=== PATIENT | female | born 1995 | race Caucasian/White ===

== ENCOUNTER → 2021-02-25 07:09 | Outpatient (CLI) | payer MEDICAID, SELFPAY ==
--- NOTE | 2021-02-25 07:14 | US_ITS ---
STUDY: ABDOMINAL ULTRASOUND - RIGHT UPPER QUADRANT REASON FOR VISIT: Female, 25 years old RUQ PAIN . Elevated liver function tests. TECHNIQUE: Ultrasound evaluation of the right upper quadrant was performed with real-time and static stone-scale imaging. TECHNICAL QUALITY: Adequate. COMPARISON: None. FINDINGS: Liver: The liver is enlarged and measures 23.4 cm. There is increased echogenicity consistent with fatty infiltration. The bile ducts are within normal limits. There is hepatic color flow. The direction of portal flow is hepatopetal. There is no demonstrated mass lesion. Gallbladder: Normal distended gallbladder. The gallbladder wall measures 1 mm. There is a negative sonographic Jackson''s sign. There is no pericholecystic fluid. There are no gallstones. Common Bile Duct (C.B.D.): The common bile duct measures 5 mm. Pancreas: Normal size of the head, body of the pancreas. The tail portion is obscured due to overlying bowel gas. There is normal echogenicity of the pancreas. There is no demonstrated pancreatic mass or cyst. Right Kidney: Normal size of the right kidney. The right kidney measures 11.5 cm x 4.2 cm x 3.5 cm. Normal renal cortex. The right cortex measures 1.0 cm. There is no demonstrated renal mass or cyst. There is no right hydronephrosis. US/Abdomen Limited IMPRESSION: Hepatomegaly and diffuse fatty infiltration of the liver. Electronically Signed: Eugene Paul MD at 14:58 EST , Service support ,
== END ==
PROVIDERS: PCP Family Medicine; Referring Provider Family Medicine; Visit Provider Family Medicine
DX: R74.8 Abnormal levels of other serum enzymes (principal)
CPT/HCPCS: 76705

== ENCOUNTER 2021-03-23 17:56 | Outpatient (CLI) | payer MEDICAID, SELFPAY | END 2021-03-23 23:59 | disposition short-term general hospital (02) | PROVIDERS: Visit Provider Family Medicine | DX: Z20.828 Contact with and (suspected) exposure to other viral communicable diseases (principal) | CPT/HCPCS: 87635; U0003; U0005 ==

== ENCOUNTER → 2022-11-18 | Outpatient (CLI) | payer MEDICAID, SELFPAY ==
[2022-11-18 17:47] LABS: Absolute Lymphocyte Count 1.67 X10^3/uL (0.83-4.51); Absolute Neutrophil Count 5.7 X10^3/uL (2.0-7.7); Basophil# 0.04 X10^3/uL; Basophil% 0.5 % (0-1); Eosinophil# 0.19 X10^3/uL; Eosinophils% 2.3 % (0-5); Hemoglobin 14.4 g/dL (12.0-15.0); Lymphocyte # 1.67 X10^3/ul (0.83-4.51); Lymphocyte % 20.4 % (19-41); Mean Corp Hgb Conc 32.7 g/dL (32-36); Mean Corpuscular Hgb 28.7 pg (27.0-32.0); Mean Corpuscular Volume 87.6 fL (81-99); Mean Platelet Vol. 13.4 fl (6.2-12.0); Monocyte# 0.61 X10^3/uL; Monocyte% 7.4 % (0-10); NRBC Flagged by Analyzer 0 % (0-5); Neutrophil # 5.66 X10^3/uL (2.7-7.7); Neutrophil % 69.2 % (47-70); Platelet Count 197 K/mm3 (150-450); RBC Distribution Width SD 38.5 fl (35.1-43.9); Red Blood Count 5.02 M/mm3 (4.2-5.4); White Blood Count 8.2 K/mm3 (4.4-11.0)
[2022-11-18 18:50] LABS: ALB/GLOB Ratio 0.9 RATIO (0.9-2.4); AST(SGOT) 48 U/L (15-37); Alanine Aminotransfer ALT/SGPT 91 U/L (13-56); Albumin, Serum 3.7 g/dL (3.2-5.0); Alkaline Phosphatase 88 U/L (45-117); Anion Gap 6 (5-15); BUN 13 mg/dL (7-18); BUN/Creat Ratio 13.5 RATIO (10-20); Calcium,Total 9.2 mg/dL (8.5-10.1); Chloride 107 mmol/L (98-107); Creatinine, Serum 0.96 mg/dL (0.55-1.02); EST Glomerular Filtration Rate 74 mL/min (>60); Est Glom Filt Rate - Afr Amer 90 mL/min (>60); Glucose 122 mg/dL (74-106); Potassium 3.9 mmol/L (3.5-5.1); Protein, Total 7.7 g/dL (6.4-8.2); Sodium Level 137 mmol/L (136-145)
== END | disposition home or self-care (01) ==
LOC: MTLAB 16:38
PROVIDERS: PCP Family Medicine; Visit Provider Family Medicine
DX: O24.420 Gestational diabetes mellitus in childbirth, diet controlled (principal); K76.0 Fatty (change of) liver, not elsewhere classified; O99.611 Diseases of the digestive system complicating pregnancy, first trimester; Z3A.00 Weeks of gestation of pregnancy not specified
CPT/HCPCS: 36415; 80053; 85025; 87491; 87591

== ENCOUNTER → 2022-12-04 | Outpatient (CLI) | payer MEDICAID, SELFPAY ==
--- NOTE | 2022-12-04 08:54 | US_ITS ---
STUDY: ABDOMINAL ULTRASOUND - RIGHT UPPER QUADRANT REASON FOR VISIT: Female, 27 years old FATTY LIVER TECHNIQUE: Ultrasound evaluation of the right upper quadrant was performed with real-time and static stone-scale imaging. TECHNICAL QUALITY: Adequate. COMPARISON: Comparison is made with prior study February 25, 2021. FINDINGS: Liver: The liver is enlarged and measures 20.8 cm. There is increased echogenicity consistent with fatty infiltration. The bile ducts are within normal limits. There is hepatic color flow. The direction of portal flow is hepatopetal. There is no demonstrated mass lesion. Gallbladder: Normal distended gallbladder. The gallbladder wall measures 2.0 mm. There is a negative sonographic Jackson''s sign. There is no pericholecystic fluid. There are no gallstones. Common Bile Duct (C.B.D.): The common bile duct measures 3.0 mm. Pancreas: Normal size of the head, body and tail of the pancreas. There is normal echogenicity of the pancreas. There is no demonstrated pancreatic mass or cyst. Right Kidney: Normal size of the right kidney. The right kidney measures 11.6 cm x 5.5 cm x 4.3 cm. Normal renal cortex. The right cortex measures 1.5 cm. There is no demonstrated renal mass or cyst. There is no right hydronephrosis. IMPRESSION: Hepatomegaly and fatty infiltration of the liver. Electronically Signed: Eugene Paul MD at 8:27 EDT , STUDY: ABDOMINAL ULTRASOUND - ELASTOGRAPHY REASON FOR VISIT: Female, 27 years old. Hepatomegaly and fatty infiltration of the liver. TECHNIQUE: Liver stiffness measurements were obtained on a Voxound 85 ultrasound machine using a CA 1-7 probe following the SRU guidelines. 3 measurements were obtained using a 2-D-SWE method. TheIQR/M was 12% suggesting a quality data set. TECHNICAL QUALITY: Adequate. COMPARISON: None. FINDINGS: Liver: Fatty infiltration of the liver. Hepatomegaly. Median liver stiffness measured 6.8 kPa. Abdomen: There is no demonstrated mass lesion. US/Abdomen Limited IMPRESSION: Liver stiffness measures 6.8 kPa compatible with F2-F3 (Mild to moderate liver fibrosis) Metavir score. Electronically Signed: Eugene Paul MD at 8:29 EDT ,
== END | disposition home or self-care (01) ==
LOC: US 08:51
PROVIDERS: PCP Family Medicine; Referring Provider Family Medicine; Visit Provider Family Medicine
DX: K76.0 Fatty (change of) liver, not elsewhere classified (principal)
CPT/HCPCS: 76705; 76981

== ENCOUNTER 2023-05-08 21:36 | Emergency (ER) | payer MEDICAID, SELFPAY ==
[2023-05-08 21:39] VITALS: BP 143/102; PULSE 155; RESP 22; TEMP 39.4; O2SAT 97
[2023-05-08 21:42] VITALS: BP 143/102; PULSE 155; RESP 22; TEMP 39.4; O2SAT 97
[2023-05-08 21:54] VITALS: BP 129/87; PULSE 123; RESP 22; TEMP 39.5; O2SAT 96; BMI 34.3
[2023-05-08] MEDS: 0.9% Normal Saline (1000mL) 1,000 ML 1000 ML IV ×2 (22:00→22:32)
--- NOTE | 2023-05-08 22:06 | EDS_ITS ---
HPI History of Present Illness Chief Complaint: Fever Informant: patient Onset/Context/Timing Onset: Yesterday Context: Gradual Onset Timing: Continuous Quality: Weak, lightheaded Location: Generalized Worsened by: Nothing Relieved by: Tylenol Narrative Narrative: Patient presents with a fever that began yesterday. Patient states it is gradually gotten worse. Patient states it is up to 104 at home. Patient states she did take some Tylenol which has been helping. Patient admits to some postnasal drainage and a cough. Patient also admits to an episode of nausea and vomiting. Patient states she was recently treated for an ear infection but stopped taking her amoxicillin because she thought that it was making her sick. Patient states she is feeling weak all over. Patient also admits to some lightheadedness. Patient denies any chest pain or shortness of breath. [facility] Medical History (Updated 05/08/23 @ 23:[address] Silvio Trujillo DO) Anxiety Ear infection URI (upper respiratory infection) Home Medications amoxicillin 400 mg/5 mL oral suspension 800 mg PO Q12H 05/08/23 [History Last Taken Unknown] fluoxetine 20 mg/5 mL (4 mg/mL) oral solution 30 mg PO DAILY 05/08/23 [History Last Taken Unknown] oseltamivir 75 mg capsule 75 mg PO BID #10 CAPSULES 05/08/23 [Rx Last Taken Unknown] Allergy/AdvReac Type Severity Reaction Status Date / Time No Known Allergies Allergy Verified 05/08/23 21:38 Surgical History (Updated 05/08/23 @ 22:[address] Silvio Trujillo DO) Hx of section Social History Smoking Status: Never smoker ROS ROS ED Constitutional Constitutional ED: Reports fever(s); Denies chills Eyes Eyes: Denies blurry vision or change in vision ENT ENT ED: Denies ear pain, rhinorrhea or sore throat Cardiovascular Cardiovascular: Denies chest pain or palpitations Respiratory/Chest Respiratory/Chest: Reports cough; Denies dyspnea Gastrointestinal Gastrointestinal: Reports nausea and vomiting Genitourinary Genitourinary ED: Denies dysuria or hematuria Musculoskeletal Musculoskeletal: Denies back pain or neck pain Integumentary Denies abscess or rash Neurologic Neurologic: Reports headache(s); Denies weakness Psychiatric Psychiatric: Reports anxiety Allergic/Immunologic Allergic/Immunologic ED: Denies mouth swelling or urticaria EXAM Physical Exam Const Vital Signs: 05/08/23 21:39 05/08/23 21:42 05/08/23 21:54 Temperature 103.0 F H 103.0 F H 103.1 F H Temperature Source Oral Oral Oral Pulse Rate 155 H 155 H 123 H Respiratory Rate 22 H 22 H 22 H Respiratory Pattern Blood Pressure 143/102 H 143/102 H 129/87 H Blood Pressure Mean 115 115 101 Pulse Ox 97 97 96 Oxygen Delivery Method Room Air Room Air Room Air 05/08/23 21:58 05/08/23 22:32 05/08/23 23:00 Temperature 98.4 F Temperature Source Oral Pulse Rate 104 H 105 H Respiratory Rate 17 17 Respiratory Pattern Tachypnea Blood Pressure 134/92 H 127/78 H Blood Pressure Mean 106 94 Pulse Ox 97 97 Oxygen Delivery Method Room Air Room Air Positive well nourished, well developed and obese General Appearance ED: well developed and NAD Nutritional Appearance: obese HEENT Reports dry mucous membranes Mouth ED: Yes dry mucous membranes Mouth: dry mucous membranes Neck supple and no JVD Resp normal respiratory effort and clear to auscultation bilaterally Cardio regular rhythm Rate: tachycardic GI non-tender and non-distended Palpation: soft Extremity normal to inspection General Extremety ED: Negative for edema or tenderness General Extremity: Negative for edema Neuro oriented x3, CN's II-XII intact bilaterally and no sensory deficits noted Sensorium / Orientation: alert Motor Exam: strength 5/5 throughout Psych mental status grossly normal MDM MDM MDM Narrative Medical decision making narrative: Differential diagnosis includes pneumonia, urinary tract infection, dehydration, viral upper respiratory infection, gastroenteritis, DKA, and sepsis. CBC will be obtained to assess for leukocytosis and anemia. Basic metabolic profile will be obtained to assess for electrolyte abnormality and renal function. Urinalysis will be obtained to assess for urinary tract infection. Chest x-ray will be obtained to assess for pneumonia. COVID-19, influenza, and RSV PCR will be obtained to assess for viral infection. Serum lactate will be obtained to assess for sepsis. Blood cultures will be obtained to assess for sepsis. Urine culture will be obtained to assess for urinary tract infection. PT was INR and PTT will be obtained to assess for coagulopathy. Lab Data Attestation: I reviewed the patient's lab results. Lab results narrative: CBC was reviewed and was within normal limits. PT was INR and PTT were reviewed and were within normal limits. Basic metabolic profile was reviewed and was within normal limits. Glucose is normal. Anion gap is normal. Lactate was reviewed and was normal at 1.3. Urinalysis was reviewed. There is no evidence of urinary tract infection or hematuria. COVID-19 PCR was reviewed and was negative. Influenza PCR was reviewed and was positive for influenza A but negative for influenza B. RSV PCR was reviewed and was negative. Labs: Laboratory Results - last 24 hr 05/08/23 05/08/23 22:00 23:10 WBC 5.0 RBC 4.81 Hgb 13.5 Hct 40.8 MCV 84.8 MCH 28.1 MCHC 33.1 RDW Std Deviation 37.1 RDW Coeff of Deanna 12.0 Plt Count 140 L MPV 13.5 H Immature Gran % (Auto) 0.200 Neut % (Auto) 72.6 H Lymph % (Auto) 9.3 L Leslie % (Auto) 16.9 H Eos % (Auto) 0.6 Baso % (Auto) 0.4 Absolute Neuts (auto) 3.6 Absolute Lymphs (auto) 0.46 L Nucleated RBC % 0 PT 13.8 INR 1.1 APTT 28.1 Sodium 136 Potassium 3.6 Chloride 107 Carbon Dioxide 24.0 Anion Gap 5 BUN 9 Creatinine 0.93 Estim Creat Clear Calc 100.01 Est GFR (MDRD) Af Amer 94 Est GFR (MDRD) Non-Af 77 BUN/Creatinine Ratio 9.7 L Glucose 105 Lactic Acid 1.3 Calcium 9.1 Urine Color Yellow Urine Clarity Sl. Cloudy Urine pH 8.0 Ur Specific Hernando 1.010 Urine Protein Negative Urine Glucose (UA) Normal Urine Ketones Negative Urine Occult Blood Negative Urine Nitrite Negative Urine Bilirubin Negative Urine Urobilinogen Normal Ur Leukocyte Esterase Negative Urine RBC 0 SEEN Urine WBC 0 SEEN Ur Squamous Epith Cells 5-10 SEEN Amorphous Sediment 1+ PHOS Urine Bacteria 0 SEEN Urine Mucus 0 SEEN Radiography Chest X-Ray - ED: 2 View, Read by ED Physician, Read by Radiologist and No Acute Disease Diagnostic Testing: Clinical Impression(s) from Imaging Studies Chest X-Ray 05/08/23 22:40 IMPRESSION: Normal x-ray examination of the chest. Electronically Signed: Guzman Figueroa MD at 23:00 EST , PA and lateral chest x-ray was obtained. There are 2 views. On my independent interpretation, lung kearney are clear. There is normal cardiac silhouette. Bony thorax is normal. There is no acute process noted. Radiologist also interpreted the x-ray and agrees. Treatment and Re-Evaluation :: Patient was given IV fluids. Patient was given a dose of Tylenol for her fever. Patient was advised of her findings. Patient was given a dose of Tamiflu here. Patient was given a prescription for Tamiflu. Patient was instructed to continue Tylenol and ibuprofen as needed for any fevers. Patient was instructed to follow-up with her primary care physician in 5 to 7 days. Patient was instructed drink plenty of fluids. Patient understood and was agreeable with the plan. All questions were answered. Discharge Plan Triage Chief Complaint: Fever ED Provider: Silvio Trujillo Dx/Rx/DC Orders Clinical Impression: Influenza A, URI (upper respiratory infection) Instructions: ED Influenza (Adult) Prescriptions: New oseltamivir [oseltamivir] 75 mg capsule 75 mg PO BID Qty: 10 0RF No Action fluoxetine 20 mg/5 mL (4 mg/mL) solution 30 mg PO DAILY amoxicillin 400 mg/5 mL suspension for reconstitution 800 mg PO Q12H Patient Comments: TAKE 2 TEASPOONSFUL (10 ML) BY MOUTH TWICE A DAY FOR 10 DAYS * pt did not finish prescription Primary Care Provider: Danitza Allred Referrals: Danitza Allred MD [Primary Care Provider] - 5-7 Days Disposition Disposition: Home, Self Care
--- OUTSIDE RECORDS SUMMARY | 2023-05-08 22:12 | XMS RPT_ITS | CCD ---
Author Name Unknown Address [facility] [id number] [place] [address] Organization [facility] Results Test Name Value Interpretation Reference Range Facil ity Progress note 05-18-2021 Note Date & Type Note Facility 05-18-2021 Note HNO ID: [id number] Author: Nisha Valdez APRN.PROBATION MANAGER Service: ? Author Type: Nurse Practitioner Type: Progress Notes Filed: 05/18/2021 3:53 PM Note Text: Subjective HPI Richa Hernandez is a 25 year old female who presents with an bite of some type on her right lower leg. She noticed this last night. It seems to be more red today. She denies pain. States it is tender if she touches it. She has not had a fever or chills. She has not taken any medication for this at home. She did carmina the spot with a pen so she can see if the redness is improving. Review of Systems Constitutional: Negative for chills and fever. Musculoskeletal: Negative for joint pain and myalgias. Skin: Negative for itching and rash. BP 124/88 Pulse (!) 131 Temp 37 ?C (98.6 ?F) Resp 20 Wt 94.2 kg (207 lb 9.6 oz) LMP 02/18/2019 SpO2 98% BMI 37.72 kg/m? PAST MEDICAL HISTORY Diagnosis Date - Gestational diabetes mellitus, class A1 05/23/2019 - past medical history of 03/2008 menses started PAST SURGICAL HISTORY Procedure Laterality Date - NONE - TOOTH EXTRACTION ALLERGIES Patient has no known allergies. MEDICATIONS cefdinir (OMNICEF) 250 mg/5 mL suspension Take 6 mL by mouth twice daily for 7 days. triamcinolone (KENALOG) 0.025 % cream Apply 1 application to affected area twice daily. blood sugar diagnostic test strip 1 Strip four times daily. Use as instructed Lancets lancets 1 Each four times daily. Use as instructed Urine Glucose-Ketones Test (KETO-DIASTIX) strp 1 Strip four times daily. Evnxkatj-Lm-Pmh-Fe-FA tab Take 1 tablet by mouth once daily. With folic acid and DHA as covered by Insurance acetaminophen (TYLENOL) 325 mg cap Take by mouth. FAMILY HISTORY Problem Relation Age of Onset - Heart Father HI - Heart Other paternal side - Cancer Maternal Grandmother rectal Social History Tobacco Use - Smoking status: Never Smoker - Smokeless tobacco: Never Used Vaping Use - Vaping Use: Never used Substance Use Topics - Alcohol use: Not Currently - Drug use: Never Objective Physical Exam Vitals and nursing note reviewed. Constitutional: Appearance: She is obese. Skin: General: Skin is warm and dry. Capillary Refill: Capillary refill takes less than 2 seconds. Findings: Erythema present. No rash. Neurological: Mental Status: She is alert. ASSESSMENT/PLAN: 1. Skin infection - ICD9: 686.9, ICD10: L08.9 (primary diagnosis) - Begin treatment with Omnicef - Area of cellulitis defined with pen, seek further attention if this area continues to enlarge - CEFDINIR 250 MG/5 ML ORAL SUSPENSION 2. Insect bite of right lower leg, initial encounter - ICD9: 916.4, E906.4, ICD10: S80.861A, W57.XXXA - kenalog cream twice daily x 7 days. Medical Decision Making: Problems: Low: Acute, uncomplicated illness or injury Risk: Low: Low risk from testing/treatment Moderate: Drug management Medical Decision Making Level: 3 - Low - Follow-up with your PCP in 3-5 days if symptoms have not improved or sooner if symptoms worsen - Discussed red flags and need for immediate medical evaluation if any occur. - Discussed supportive care treatment. - Discussed expected course of illness Nisha Valdez APRN.[facility] Summary Purpose Family History No Family History Records FoundNo Family History Records Found Advance Directives No Advanced Directives Records FoundNo Advanced Directives Records Found Additional Source Comments INFORMATION SOURCE (unrecogn ized section and content) DATE CREATED AUTHOR AUTHOR'S RODGER MORALES 05/19/[address] [facility] FOR RECORDS PERTAINING TO PATIENTS WHO ARE OR HAVE BEEN ENROLLED IN A CHEMICAL DEPENDENCY/SUBSTANCEABUSE PROGRAM, SOME INFORMATION MAY BE OMITTED. This clinical summary was aggregated from multiple sources. Caution should be exercised in using it in the provision of clinical care. This summary normalizes information from multiple sources, and as a consequence, information in this document may materially change the coding, format and clinical context of patient data. In addition, data may be omitted in some cases. CLINICAL DECISIONS SHOULD BE BASED ON THE PRIMARY CLINICAL RECORDS. [facility] [employer] [facility]. provides no warranty or guarantee of the accuracy or completeness of information in this document.
[2023-05-08 22:32] VITALS: BP 134/92; PULSE 104; RESP 17; O2SAT 97
[2023-05-08] MEDS: Acetaminophen 500 MG Tablet 1000 MG PO (22:32)
[2023-05-08 22:39] LABS: Absolute Lymphocyte Count 0.46 X10^3/uL (0.83-4.51); Absolute Neutrophil Count 3.6 X10^3/uL (2.0-7.7); Basophil# 0.02 X10^3/uL; Basophil% 0.4 % (0-1); Eosinophil# 0.03 X10^3/uL; Eosinophils% 0.6 % (0-5); Hematocrit 40.8 % (37-47); Hemoglobin 13.5 g/dL (12.0-15.0); Lymphocyte # 0.46 X10^3/ul (0.83-4.51); Lymphocyte % 9.3 % (19-41); Mean Corp Hgb Conc 33.1 g/dL (32-36); Mean Corpuscular Hgb 28.1 pg (27.0-32.0); Mean Corpuscular Volume 84.8 fL (81-99); Mean Platelet Vol. 13.5 fl (6.2-12.0); Monocyte# 0.84 X10^3/uL; Monocyte% 16.9 % (0-10); NRBC Flagged by Analyzer 0 % (0-5); Neutrophil % 72.6 % (47-70); POSITIVE DIFFERENTIAL YES; Platelet Count 140 K/mm3 (150-450); RBC Distribution Width SD 37.1 fl (35.1-43.9); Red Blood Count 4.81 M/mm3 (4.2-5.4)
--- NOTE | 2023-05-08 22:40 | RAD_ITS ---
STUDY: X-RAY CHEST REASON FOR EXAM: Female, 27 years old. Fever TECHNIQUE: PA and lateral views of the chest. COMPARISON: None. FINDINGS: The lungs are clear and expanded. There is no demonstrated pleural abnormality. Normal size heart. Normal mediastinum and martha. Normal visualized pulmonary arteries. Normal visualized aortic arch and descending thoracic aorta. Normal visualized thoracic spine. Normal visualized ribs, clavicles, and shoulders. There is no demonstrated abnormality of the visualized soft tissue structures of the upper abdomen. RAD/Chest PA and Lateral IMPRESSION: Normal x-ray examination of the chest. Electronically Signed: Guzman Figueroa MD at 23:00 EST ,
[2023-05-08 22:43] LABS: International Normalized Ratio 1.1; Prothrombin Time (Protime)PT. 13.8 SECONDS (11.7-14.9)
[2023-05-08 22:44] LABS: Partial Thromboplast Time 28.1 Seconds (24.1-36.2)
[2023-05-08 23:00] VITALS: BP 127/78; PULSE 105; RESP 17; TEMP 36.9; O2SAT 97
[2023-05-08 23:06] LABS: Anion Gap 5 (5-15); BUN 9 mg/dL (7-18); BUN/Creat Ratio 9.7 RATIO (10-20); Calcium,Total 9.1 mg/dL (8.5-10.1); Chloride 107 mmol/L (98-107); Creatinine, Serum 0.93 mg/dL (0.55-1.02); EST Glomerular Filtration Rate 77 mL/min (>60); Est Glom Filt Rate - Afr Amer 94 mL/min (>60); Estimated Creatinine Clearance 100.01 ml/min; Glucose 105 mg/dL (74-106); Potassium 3.6 mmol/L (3.5-5.1); Sodium Level 136 mmol/L (136-145)
[2023-05-08 23:10] LABS: Lactic Acid 1.3 mmol/L (0.4-1.9)
[2023-05-08 23:17] LABS: Bacteria 0 SEEN /hpf (None Seen); Mucous, Urine 0 SEEN /hpf (<or=2+); Red Blood Cells-Urine 0 SEEN /hpf (0-5); White Blood Cells 0 SEEN /hpf (0-5)
[2023-05-08 23:22] LABS: Color, Urine Yellow (Yellow); Glucose, Dipstick Normal (Normal); Ketone-Dipstick Negative (Negative); Leukocyte Esterase-Dipstick Negative /ul (Negative); Nitrite-Dipstick Negative (Negative); Occult Blood-Urine Negative /ul (Negative); Protein-Dipstick Negative (Negative); Urine Bilirubin Dipstick Negative (Negative); Urine Clarity Sl. Cloudy (Clear); Urine Urobilinogen Normal (Normal)
[2023-05-08 23:28] LABS: Squamous Epithelial Cells - UA 5-10 SEEN /hpf (5-10)
[2023-05-08 23:29] LABS: Amorphous Sediment 1+ PHOS
[2023-05-09 00:06] VITALS: BP 112/76; PULSE 99; RESP 26; TEMP 36.8; O2SAT 95
[2023-05-09] MEDS: Oseltamivir Phosphate 75 MG Capsule PO (00:08)
== END 2023-05-09 00:16 | disposition home or self-care (01) ==
PROVIDERS: Emergency Provider Emergency Medicine; PCP Family Medicine; Visit Provider Emergency Medicine
DX: J10.1 Influenza due to other identified influenza virus with other respiratory manifestations (principal); E66.9 Obesity, unspecified; Z79.899 Other long term (current) drug therapy
CPT/HCPCS: 71046; 80048; 81001; 83605; 85025; 85610; 85730; 87040; 87086; 87088; 87631; 96360; 96361; 99284; J7030; A4216

== ENCOUNTER → 2023-09-19 | Outpatient (CLI) | payer MEDICAID, SELFPAY ==
[2023-09-19 18:11] LABS: ALB/GLOB Ratio 0.8 RATIO (0.9-2.4); AST(SGOT) 14 U/L (15-37); Alanine Aminotransfer ALT/SGPT 31 U/L (13-56); Albumin, Serum 3.2 g/dL (3.2-5.0); Alkaline Phosphatase 66 U/L (45-117); Anion Gap 6 (5-15); BUN 7 mg/dL (7-18); BUN/Creat Ratio 7.8 RATIO (10-20); Chloride 107 mmol/L (98-107); Creatinine, Serum 0.89 mg/dL (0.55-1.02); EST Glomerular Filtration Rate 81 mL/min (>60); Est Glom Filt Rate - Afr Amer 97 mL/min (>60); Ferritin 6 ng/mL (8-252); Globulin 4.2 g/dL (2.2-4.2); Glucose 149 mg/dL (74-106); Iron 39 ug/dL (50-170); Potassium 3.5 mmol/L (3.5-5.1); Protein, Total 7.4 g/dL (6.4-8.2); Sodium Level 137 mmol/L (136-145)
[2023-09-19 18:52] LABS: Hemoglobin A1c 4.8 % (3.8-5.6)
[2023-09-19 21:51] LABS: Vitamin B12 405 pg/mL (211-911); Vitamin D,25 Hydroxy 11.8 ng/mL
== END | disposition home or self-care (01) ==
LOC: BFHLAB 16:33
PROVIDERS: PCP Family Medicine; Referring Provider Family Medicine; Visit Provider Family Medicine
DX: Z00.01 Encounter for general adult medical examination with abnormal findings (principal); R73.01 Impaired fasting glucose; D64.9 Anemia, unspecified; E56.9 Vitamin deficiency, unspecified; R53.83 Other fatigue
CPT/HCPCS: 36415; 80053; 82306; 82607; 82728; 83036; 83540

== ENCOUNTER 2023-11-06 05:41 | Emergency (ER) | payer MEDICAID, SELFPAY ==
[2023-11-06 05:41] VITALS: BP 120/89; PULSE 103; RESP 16; TEMP 36.7; O2SAT 96; BMI 34.8
--- NOTE | 2023-11-06 05:52 | ED.VIS.GI ---
HPI HPI - GI History of Present Illness Chief Complaint: Diarrhea Informant: patient Narrative Narrative: Patient presents to the ED because she has been having watery diarrhea 5-6 bouts per day, no blood no melena, for the past 6 or 7 days. She has been trying a couple doses of Imodium which have not seemed to help. No associated abdominal pain. Some occasional nausea no vomiting. No fevers or chills. She thinks this coincides with changing her anxiety medication recently. She states she was on Prozac but she is switching to sertraline, she states she originally went down to half a dose of Prozac while going on just half of a dose of sertraline for a little while then she switched to the sertraline only and the diarrhea ramped up, she tried to call her psychiatrist but was unable to get an answer, her PCP told her that she would have to go and follow-up with her psychiatrist since they prescribed a medication, and now it is Tuesday morning and she is concerned that she may be dehydrated so she presents here. She denies having any lightheadedness when she stands up, near-syncope, syncope, or problems urinating. She is drinking fluids, but is not sure if she is keeping up. She is urinating and does not think that it is dark. She denies any recent antibiotics for any reason that she can remember. She denies any travel out of the area or the country recently. She denies any suspicious food intake such as raw fish, raw meats, or undercooked meat or fish. No known sick contacts. [facility] Medical History Anxiety Ear infection URI (upper respiratory infection) Home Medications ?Medication ?Instructions ?Recorded ?Last Taken ?Type norethindrone 1.5 mg-ethinyl 1 tab PO QDAY 09/26/23 Unknown History estradiol 30 mcg(21)/iron 75 mg(7) tablet (Phuong Fe 1.5 (28)) sertraline 20 mg/mL oral 20 mg PO DAILY #60 mL 09/26/23 Unknown Rx concentrate diphenoxylate-atropine 2.5 1 - 2 tab PO Q6H PRN diarrhea 2 11/06/23 Unknown Rx mg-0.025 mg tablet days #16 tabs Allergy/AdvReac Type Severity Reaction Status Date / Time No Known Allergies Allergy Verified 11/06/23 05:45 Surgical History Hx of section Social History Smoking Status: Never smoker ROS ROS ED Constitutional Constitutional ED: Denies chills or fever(s) Eyes Eyes: Denies change in vision or diplopia ENT ENT ED: Denies rhinorrhea or sore throat Cardiovascular Cardiovascular: Denies chest pain, edema, lightheadedness, palpitations or syncope Respiratory/Chest Respiratory/Chest: Denies cough or dyspnea Gastrointestinal Gastrointestinal: Reports diarrhea and nausea; Denies abdominal pain, hematochezia, melena or vomiting Genitourinary Genitourinary ED: Denies dysuria or hematuria Musculoskeletal Musculoskeletal: Denies back pain or neck pain Integumentary Denies abscess or rash Neurologic Neurologic: Denies headache(s), paresthesias or weakness Psychiatric Psychiatric: Denies suicidal thoughts EXAM Physical Exam Const Vital Signs: 11/06/23 05:41 Temperature 98.1 F Temperature Source Oral Pulse Rate 103 H Respiratory Rate 16 Blood Pressure 120/89 H Blood Pressure Mean 99 Pulse Ox 96 Oxygen Delivery Method Room Air Positive well nourished and well developed General Appearance ED: well developed and NAD HEENT Reports moist mucous membranes normocephalic and atraumatic Eyes PERRL and EOMs intact bilaterally Neck full ROM and supple Resp normal respiratory effort and clear to auscultation bilaterally Cardio regular rate, regular rhythm and no murmurs GI non-tender and non-distended Auscultation: normoactive bowel sounds Palpation: soft Back/Spine no CVA tenderness General Back: other FROM Extremity normal to inspection General Extremety ED: Negative for edema, pulses abnormal or tenderness General Extremity: Negative for edema or pulses abnormal Neuro oriented x3, CN's II-XII intact bilaterally and no sensory deficits noted Sensorium / Orientation: awake and alert Motor Exam: strength 5/5 throughout Skin no rashes or lesions noted and no wounds MDM MDM MDM Narrative Medical decision making narrative: Given the history I do not think the patient is grossly dehydrated, but given her request I am happy to check some electrolytes, liver enzymes, and chemistries for hydration status while giving her a liter of IV fluids. These labs were reviewed and basically all normal. I am going to write her for a couple of days of Lomotil and advise that she follow. I have a very low suspicion of C. difficile here given that she has no specific risk factors for that her leukocytosis. Lab Data Attestation: I reviewed the patient's lab results. Labs: Laboratory Results - last 24 hr 11/06/23 06:00 WBC 8.0 RBC 4.81 Hgb 13.7 Hct 41.2 MCV 85.7 MCH 28.5 MCHC 33.3 RDW Std Deviation 36.2 RDW Coeff of Deanna 11.7 Plt Count 162 MPV 13.0 H Immature Gran % (Auto) 0.100 Neut % (Auto) 61.7 Lymph % (Auto) 28.3 [place] % (Auto) 7.4 Eos % (Auto) 2.1 Baso % (Auto) 0.4 Absolute Neuts (auto) 4.9 Absolute Lymphs (auto) 2.25 Nucleated RBC % 0 Sodium 138 Potassium 3.5 Chloride 106 Carbon Dioxide 26.0 Anion Gap 6 BUN 9 Creatinine 0.91 Estim Creat Clear Calc 102.12 Est GFR (MDRD) Af Amer 95 Est GFR (MDRD) Non-Af 79 BUN/Creatinine Ratio 9.9 L Glucose 110 H Calcium 8.9 Total Bilirubin 0.30 AST 18 ALT 26 Alkaline Phosphatase 63 Total Protein 6.9 Albumin 3.1 L Globulin 3.8 Albumin/Globulin Ratio 0.8 L Discharge Plan Triage Chief Complaint: Diarrhea ED Provider: Ashvin Trujillo Dx/Rx/DC Orders Clinical Impression: Acute diarrhea Instructions: ED Diarrhea, Unknown Cause Prescriptions: New diphenoxylate-atropine 2.5-0.025 mg tablet 1 - 2 tab PO Q6H PRN (Reason: diarrhea) 2 Days Qty: 16 0RF No Action norethindrone-e.estradiol-iron [Phuong Fe 1.5/30 (28)] 1.5 mg-30 mcg (21)/75 mg (7) tablet 1 tab PO QDAY sertraline 20 mg/mL concentrate 20 mg PO DAILY Qty: 60 1RF Primary Care Provider: Danitza Allred Referrals: Danitza Allred MD [Primary Care Provider] - 3-5 Days if not improving (and/or your psychiatrist regarding your anxiety med management) Print Language: Romansh Disposition Disposition: Home, Self Care
[2023-11-06 06:08] LABS: Absolute Lymphocyte Count 2.25 X10^3/uL (0.83-4.51); Absolute Neutrophil Count 4.9 X10^3/uL (2.0-7.7); Basophil# 0.03 X10^3/uL; Basophil% 0.4 % (0-1); Eosinophil# 0.17 X10^3/uL; Eosinophils% 2.1 % (0-5); Hematocrit 41.2 % (37-47); Hemoglobin 13.7 g/dL (12.0-15.0); Lymphocyte # 2.25 X10^3/ul (0.83-4.51); Lymphocyte % 28.3 % (19-41); Mean Corp Hgb Conc 33.3 g/dL (32-36); Mean Corpuscular Hgb 28.5 pg (27.0-32.0); Mean Corpuscular Volume 85.7 fL (81-99); Monocyte# 0.59 X10^3/uL; Monocyte% 7.4 % (0-10); NRBC Flagged by Analyzer 0 % (0-5); Neutrophil # 4.91 X10^3/uL (2.7-7.7); Neutrophil % 61.7 % (47-70); Platelet Count 162 K/mm3 (150-450); RBC Distribution Width CV 11.7 % (11.6-14.6); RBC Distribution Width SD 36.2 fl (35.1-43.9); Red Blood Count 4.81 M/mm3 (4.2-5.4)
[2023-11-06] MEDS: 0.9% Normal Saline (1000mL) 1,000 ML 999 ML IV (06:24)
[2023-11-06 06:25] LABS: ALB/GLOB Ratio 0.8 RATIO (0.9-2.4); AST(SGOT) 18 U/L (15-37); Alanine Aminotransfer ALT/SGPT 26 U/L (13-56); Albumin, Serum 3.1 g/dL (3.2-5.0); Alkaline Phosphatase 63 U/L (45-117); Anion Gap 6 (5-15); BUN 9 mg/dL (7-18); BUN/Creat Ratio 9.9 RATIO (10-20); Calcium,Total 8.9 mg/dL (8.5-10.1); Chloride 106 mmol/L (98-107); Creatinine, Serum 0.91 mg/dL (0.55-1.02); EST Glomerular Filtration Rate 79 mL/min (>60); Est Glom Filt Rate - Afr Amer 95 mL/min (>60); Estimated Creatinine Clearance 102.12 ml/min; Globulin 3.8 g/dL (2.2-4.2); Glucose 110 mg/dL (74-106); Potassium 3.5 mmol/L (3.5-5.1); Protein, Total 6.9 g/dL (6.4-8.2); Sodium Level 138 mmol/L (136-145)
[2023-11-06 07:00] VITALS: BP 102/68; PULSE 98; RESP 16; TEMP 36.6; O2SAT 99
[2023-11-06] MEDS: Ondansetron 4 MG/2 ML Vial IV (07:18)
== END 2023-11-06 07:24 | disposition home or self-care (01) ==
PROVIDERS: Emergency Provider Emergency Medicine; PCP Family Medicine; Visit Provider Emergency Medicine
DX: R19.7 Diarrhea, unspecified (principal); F41.9 Anxiety disorder, unspecified; Z79.899 Other long term (current) drug therapy
CPT/HCPCS: 80053; 85025; 96361; 96374; 99282; J7030; A4216; J2405

== ENCOUNTER 2024-10-22 15:52 | Emergency (ER) | payer MEDICAID, SELFPAY ==
[2024-10-22 15:52] VITALS: BP 134/88; PULSE 130; RESP 15; TEMP 37.2; O2SAT 98; BMI 35.2
[2024-10-22 16:42] VITALS: TEMP 37.2
--- NOTE | 2024-10-22 17:11 | EX.ED.DYSGE1 ---
HPI History of Present Illness Chief Complaint: Fever Informant: patient Narrative Narrative: 29-year-old female fevers, chills, body aches, sore throat that started last night. Today the sore throat is better. She denies any cough, dyspnea, congestion, runny nose, dysuria or changes in urination, diarrhea, nausea or vomiting. No abdominal pain, chest discomfort, dyspnea. She states both of her ears hurt a little. She states her son had a fever 1 week ago for about a day and then he was better and for that reason was never seen by a healthcare professional. No other known sick contact. No travel out of the area or the country recently. No suspicious food intake. No recent antibiotics or other illness that she knows of. She states yesterday she was out in the sun all day working on trees, did not drink a lot of water and has not drank much water today to and feels like she may be dehydrated and requesting blood work and IV fluids. [facility] Medical History Gestational diabetes Physical exam, pre-employment Anxiety Ear infection URI (upper respiratory infection) Home Medications ?Medication ?Instructions ?Recorded ?Last Taken ?Type cholecalciferol (vitamin D3) 25 25 mcg PO QDAY 12/20/23 Unknown History mcg (1,000 unit) capsule fluoxetine 20 mg/5 mL (4 mg/mL) 60 mg (15 mL) PO QDAY 30 days #450 07/17/24 Unknown Rx oral solution mL Allergy/AdvReac Type Severity Reaction Status Date / Time No Known Allergies Allergy Verified 10/22/24 15:54 Surgical History Hx of section Social History Smoking Status: Never smoker alcohol intake: never substance use type: does not use ROS ROS ED Constitutional Constitutional ED: Reports body ache(s), chills, fatigue, fever(s) and malaise Eyes Eyes: Denies change in vision or diplopia ENT ENT ED: Reports ear pain bilateral and sore throat; Denies rhinorrhea Cardiovascular Cardiovascular: Denies chest pain or palpitations Respiratory/Chest Respiratory/Chest: Denies cough or dyspnea Gastrointestinal Gastrointestinal: Denies abdominal pain, diarrhea, nausea or vomiting Genitourinary Genitourinary ED: Denies dysuria or hematuria Musculoskeletal Musculoskeletal: Denies back pain or neck pain Integumentary Denies abscess or rash Neurologic Neurologic: Denies headache(s), paresthesias or weakness Psychiatric Psychiatric: Denies suicidal thoughts EXAM Physical Exam Const Vital Signs: 10/22/24 15:52 10/22/24 16:41 10/22/24 16:42 Temperature 99 F 98.9 F Temperature Source Oral Oral Pulse Rate 130 H Respiratory Rate 15 Respiratory Effort Normal Non-Labored Respiratory Pattern Normal Blood Pressure 134/88 H Blood Pressure Mean 103 Pulse Ox 98 Oxygen Delivery Method Room Air Positive well nourished, well developed and obese General Appearance ED: well developed and NAD Nutritional Appearance: obese HEENT Reports TM's clear and moist mucous membranes HEENT Narrative: Facial flushing. Posterior oropharynx is clear and normal and symmetric there is no potato voice, stridor, or trismus. normocephalic and atraumatic Tympanic Membrane ED: Yes TM's clear bilateral Eyes PERRL and EOMs intact bilaterally Neck full ROM and supple Resp normal respiratory effort and clear to auscultation bilaterally Cardio regular rate, regular rhythm and no murmurs Rate: tachycardic GI non-tender and non-distended Auscultation: normoactive bowel sounds Palpation: soft Back/Spine no CVA tenderness General Back: other FROM Extremity normal to inspection General Extremety ED: Negative for edema, pulses abnormal or tenderness General Extremity: Negative for edema or pulses abnormal Neuro oriented x3, CN's II-XII intact bilaterally and no sensory deficits noted Sensorium / Orientation: awake and alert Motor Exam: strength 5/5 throughout Psych Mood & Affect: anxious Skin no rashes or lesions noted and no wounds MDM MDM MDM Narrative Medical decision making narrative: Fever workup obtained, all the testing is negative. Two-view chest x-ray interpretation radiology in agreement. COVID/influenza/RSV swab negative, urine unremarkable, labs are normal there is no leukocytosis or bandemia. Patient's heart rate improved after IV fluids. She feels little better. She did not develop another fever here, repeat temperature 98.9. Given her son that was ill a week ago, this is consistent with a viral etiology, as 1 week or a little less is a typical incubation period. Stable for discharge close outpatient follow-up if her symptoms persist we discussed alternating Tylenol and ibuprofen as needed for fevers and recommended to stay hydrated. Lab Data Attestation: I reviewed the patient's lab results. Labs: Laboratory Results - last 24 hr 10/22/24 10/22/24 17:18 17:20 WBC 6.8 RBC 4.66 Hgb 13.7 Hct 40.1 MCV 86.1 MCH 29.4 MCHC 34.2 RDW Std Deviation 36.6 RDW Coeff of Deanna 11.8 Plt Count 129 L MPV 13.0 H Immature Gran % (Auto) 0.100 Neut % (Auto) 85.5 H Lymph % (Auto) 3.5 L [place] % (Auto) 10.6 H Eos % (Auto) 0.0 Baso % (Auto) 0.3 Absolute Neuts (auto) 5.8 Absolute Lymphs (auto) 0.24 L Nucleated RBC % 0 Sodium 135 Potassium 3.6 Chloride 102 Carbon Dioxide 21.3 Anion Gap 12 BUN 6 Creatinine 0.80 Estim Creat Clear Calc 115.89 Est GFR (MDRD) Non-Af 103 BUN/Creatinine Ratio 7.9 L Glucose 108 H Calcium 9.2 Urine Color Yellow Urine Clarity Clear Urine pH 8.0 Ur Specific [place] 1.015 Urine Protein Negative Urine Glucose (UA) Normal Urine Ketones Negative Urine Occult Blood Negative Urine Nitrite Negative Urine Bilirubin Negative Urine Urobilinogen Normal Ur Leukocyte Esterase 25 H Urine RBC 0-5 SEEN Urine WBC 5-10 SEEN Ur Squamous Epith Cells 5-10 SEEN Urine Bacteria 1+ Urine Mucus 0 SEEN Radiography Diagnostic Testing: Clinical Impression(s) from Imaging Studies Chest X-Ray 10/22/24 17:20 IMPRESSION: No evidence of acute pulmonary disease. Stable subcentimeter nodular density in the lateral right lung base may be a granuloma, unchanged from 05/08/2023. Reading Location: [id number] Discharge Plan Triage Chief Complaint: Fever ED Provider: Ashvin Trujillo Dx/Rx/DC Orders Clinical Impression: Acute viral syndrome Instructions: ED Viral Syndrome (Adult) Prescriptions: No Action cholecalciferol (vitamin D3) 25 mcg (1,000 unit) capsule 25 mcg PO QDAY fluoxetine 20 mg/5 mL (4 mg/mL) solution 60 mg PO QDAY 30 Days Qty: 450 2RF Primary Care Provider: Danitza Allred Referrals: Danitza Allred MD [Primary Care Provider] - 3-5 Days if not improving Print Language: Croatian Disposition Disposition: Home, Self Care
[2024-10-22] MEDS: 0.9% Normal Saline (1000mL) 1,000 ML 999 ML IV (17:20)
--- NOTE | 2024-10-22 17:20 | RAD_ITS ---
PROCEDURE: CHEST PA AND LATERAL 10/22/2024 REASON FOR EXAM: FEVER TECHNIQUE: CHEST PA AND LATERAL COMPARISON: 05/08/2023 FINDINGS: Lungs/Pleura: Suboptimal inspiration. No focal consolidation, lobar collapse, pneumothorax or pleural effusions. Unchanged subcentimeter nodular density in the lateral right lung base, which may be a small lung nodule/granuloma, or possibly within the overlying soft tissues. Heart/Mediastinum: Within normal limits. Bones/Soft tissues: Unremarkable. RAD/Chest PA and Lateral IMPRESSION: No evidence of acute pulmonary disease. Stable subcentimeter nodular density i n the lateral right lung base may be a granuloma, unchanged from 05/08/2023. Reading Location: [id number]
--- NOTE | 2024-10-22 17:20 | RAD_ITS ---
PROCEDURE: CHEST PA AND LATERAL 10/22/2024 REASON FOR EXAM: FEVER TECHNIQUE: CHEST PA AND LATERAL COMPARISON: 05/08/2023 FINDINGS: Lungs/Pleura: Suboptimal inspiration. No focal consolidation, lobar collapse, pneumothorax or pleural effusions. Unchanged subcentimeter nodular density in the lateral right lung base, which may be a small lung nodule/granuloma, or possibly within the overlying soft tissues. Heart/Mediastinum: Within normal limits. Bones/Soft tissues: Unremarkable. RAD/Chest PA and Lateral IMPRESSION: No evidence of acute pulmonary disease. Stable subcentimeter nodular density i n the lateral right lung base may be a granuloma, unchanged from 05/08/2023. Reading Location: [id number]
[2024-10-22 17:24] LABS: Mucous, Urine 0 SEEN /hpf (<or=2+)
[2024-10-22 17:39] LABS: Hematocrit 40.1 % (37-47); Hemoglobin 13.7 g/dL (12.0-15.0); Immature Granulocytes Count 0.010 X10^3/uL (0.0-0.0); Mean Corp Hgb Conc 34.2 g/dL (32-36); Mean Corpuscular Volume 86.1 fL (81-99); Mean Platelet Vol. 13.0 fl (6.2-12.0); NRBC Flagged by Analyzer 0 % (0-5); POSITIVE DIFFERENTIAL YES; Platelet Count 129 K/mm3 (150-450); RBC Distribution Width CV 11.8 % (11.6-14.6); RBC Distribution Width SD 36.6 fl (35.1-43.9); Red Blood Count 4.66 M/mm3 (4.2-5.4); White Blood Count 6.8 K/mm3 (4.4-11.0)
[2024-10-22 17:44] LABS: Color, Urine Yellow (Yellow); Glucose, Dipstick Normal (Normal); Ketone-Dipstick Negative (Negative); Leukocyte Esterase-Dipstick 25 /ul (Negative); Nitrite-Dipstick Negative (Negative); Occult Blood-Urine Negative /ul (Negative); Protein-Dipstick Negative (Negative); Specific Gravity, Urine 1.015 (1.002-1.030); Urine Bilirubin Dipstick Negative (Negative)
[2024-10-22 18:14] LABS: Anion Gap 12 (5-15); BUN 6 mg/dL (4-19); BUN/Creat Ratio 7.9 RATIO (10-20); Calcium,Total 9.2 mg/dL (7.6-11.0); Carbon Dioxide 21.3 mmol/L (21.0-32.0); Chloride 102 mmol/L (98-108); Estimated Creatinine Clearance 115.89 ml/min (50-250); Glucose 108 mg/dL (70-99); Potassium 3.6 mmol/L (3.3-5.1)
[2024-10-22 18:15] LABS: Red Blood Cells-Urine 0-5 SEEN /hpf (0-5); Squamous Epithelial Cells - UA 5-10 SEEN /hpf (5-10)
[2024-10-22 18:30] LABS: Differential Indicated SCAN CRITERIA MET
[2024-10-22 19:46] VITALS: BP 102/72; PULSE 105; RESP 18; TEMP 37; O2SAT 100
--- OUTSIDE RECORDS SUMMARY | 2024-10-22 22:58 | XMS RPT_ITS | CCD ---
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 Name Role Phone Mied, Danitza Primary Care Unavailable Anderson Beronica Attending Unavailable Miedel, Danitza Referring Unavailable Miedel, Danitza Primary Care Unavailable Chaim Gonzales Attending Unavailable Mied, Danitza Primary Care Unavailable Chaim Gonzales Attending Unavailable Mied, Danitza Referring Unavailable Miedel, Danitza Primary Care Unavailable Beronica Anderson Attending Unavailable Beronica Anderson Attending Unavailable Mied, Danitza Primary Care Unavailable Miedel, Danitza Referring Unavailable Miedel, Danitza Primary Care Unavailable Miedel, Danitza Attending Unavailable Ashvin Trujillo Attending Unavailable Miedel, Danitza Primary Care Unavailable Miedel, Danitza Primary Care Unavailable Chaim Gonzales Attending Unavailable Chaim Gonzales Referring Unavailable Dallas Andersonon Attending Unavailable Miedel, Danitza Primary Care Unavailable Dallas Andersonon Attending Unavailable [facility], Danitza Primary Care Unavailable Beronica Anderson Attending Unavailable [facility], Danitza Primary Care Unavailable Medications Current Medications Medication Drug Class(es) Dates Sig (Normalized) Sig (Original) amoxicillin 80 mg/ml oral suspension (1 source) Penicillin-class Antibacterial Start: 05-08-2023 take 800 mg by mouth every twelve hours Amoxicillin Active 800 MG PO Q12H May 08, 2023 12:00am FLUoxetine 4 mg/ml oral solution (1 source) Serotonin Reuptake Inhibitor Start: 05-08-2023 take 30 mg by mouth once daily Fluoxetine Active 30 MG PO DAILY May 08, 2023 12:00am oseltamivir 75 mg oral capsule (1 source) Neuraminidase Inhibitor Start: 05-08-2023 take 75 mg by mouth twice daily Oseltamivir Active 75 MG PO TWICE A DAY May 08, 2023 12:00am Problems Active Problems Problem Classification Problem Date Documented Da te Episodic/Chronic Administrative/social admission (1 source) Encounter for pre-employment examination; Translations: [Encounter for pre-employment examination] Onset: 08-22-2024 Episodic Anxiety disorders (3 sources) Anxiety; Translations: [Anxiety disorder, unspecified] Onset: 02-01-2024 05-08-2023 Chronic Influenza (1 source) Influenza due to Influenza A virus; Translations: [Influenza due to other identified influenza virus with other respiratory manifestations] 05-08-2023 Episodic Mood disorders (1 source) Mood disorders; Translations: [Depression, unspecified] Onset: 02-01-2024 Other upper respiratory infections (2 sources) Upper respiratory infection; Translations: [Acute upper respiratory infection, unspecified] 05-12-2022 Episodic Past or Other Problems Problem Classification Problem Date Documented Da te Episodic/Chronic Other gastrointestinal disorders (1 source) Diarrhea, unspecified; Translations: [Diarrhea, unspecified] Onset: 11-11-2023 Episodic Results Test Name Value Interpretation Reference Range Facility Office Visit Reporton 2024 Office Visit Report [facility] [address] [place] [address] OFFICE VISIT Date of Service: 08/22/24 MR#: [id number] Acct: [id number] Patient: RICHA HERNANDEZ Rep #: [id number] : 1995 Provider: JAQUELINE Bhakta Age/Sex: 29/F Location: [facility] Status: Signed Intake Vital Signs 07/26/24 14:00 Height 5 ft 4 in Weight: 202 lb BMI 34.7 BP 120/82 H Blood Pressure Location Lt brachial Position Sitting Respiration 16 Pulse 91 Pulse Source Monitor Intake Visit Reasons: PE/QUANT/FIT TEST/[facility] Allergies No Known Allergies Allergy (Verified 07/26/24 14:04) Office Procedures [facility] Billing Sheet Testing Pre-Employment PE: Yes Respirator Fit Testing: Yes Occquant-Quantiferon : Yes Assessment and Plan Assessment and Plan Orders: Orders Quantiferon TB-Gold+ 08/22/24 Z02.1 - Encounter for pre-employment examination 08/28/24824 Date Chaim Shaffer Signature: Date (if applicable) CC: Normal [facility] Quantiferon TB-Gold+on 08-24 QFT MITOGEN ADRIANNE > 10.00 Normal . [facility] Comment on above: Performed By: #### L 3400.8000 #### [facility] [address] [place], [address] QFT NIL VALUE 0.01 IU/mL Normal . [facility] Comment on above: Performed By: #### L 3400.8000 #### [facility] [address] [place], [address] QFT TB GOLD+ Comment Normal . [facility] Comment on above: Result Comment: Alonzo tiFERON-TB Gold Plus is a qualitative indirect test for M tuberculosis infection (including disease) and is intended for use in conjunction with risk assessment, radiography, and other medical and diagnostic evaluations. The QuantiFERON-TB Gold Plus result is determined by subtracting the Nil value from either TB antigen (Ag) value. The Mitogen tube serves as a control for the test. Performed By: #### L [id number] #### [facility] [address] [place], [place], [id number] QFT TB POS CRIT Negative Normal Negative [facility] Comment on above: Result Comment: No r esponse to M tuberculosis antigens detected. Infection with M tuberculosis is unlikely, but high risk individuals should be considered for additional testing (ATS/IDSA/CDC Clinical Practice Guidelines, 2017). The reference range is an Antigen minus Nil result of <0.35 IU/mL. The specimen received for QuantiFERON testing was incubated by the ordering institution. Specific procedures outlined in our Directory of Services and in the package insert for the QuantiFERON Gold (In Tube) test must be followed to enable for proper stimulation of cells for the production of interferon gamma. Chemiluminescence immunoassay methodology Performed at: [facility] [address] [id number] Bag Loader Machine Operator: Uvaldo Phillips PhD, Phone: [phone] Performed By: #### L [id number] #### [facility] [address] [facility] [address] QFT TB1+ AG ADRIANNE 0.02 IU/mL Normal . [facility] Comment on above: Performed By: #### L [id number] #### [facility] [address] [facility] [address] QFT TB2+ AG ADRIANNE 0.02 IU/mL Normal . [facility] Comment on above: Performed By: #### L [id number] #### [facility] [address] [place], [address] Urgent Care Visit Reporton 0 08-22-2024 Urgent Care Visit Report [facility] [address], [address] [place] [id number] OFFICE VISIT Date of Service: 08/22/24 MR#: [id number] Acct: [id number] Name: RICHA HERNANDEZ Rep #: [id number] : 1995 Provider: JAQUELINE Bhakta Age/Sex: 29/F Location: [facility] Status: Signed Intake Vital Signs 07/26/24 14:00 Height 5 ft 4 in Weight: 202 lb BMI 34.7 BP 120/82 H Blood Pressure Location Lt brachial Position Sitting Respiration 16 Pulse 91 Pulse Source Monitor Intake Visit Reasons: PE/NON DOT/PHYSICAL/[facility] Allergies No Known Allergies Allergy (Verified 07/26/24 14:04) [facility] Medical History (Updated 08/22/24 @ 15:03 by Tess Rock) Gestational diabetes Physical exam, pre-employment Anxiety Ear infection URI (upper respiratory infection) Surgical History Hx of section Social History (Updated 12/20/23 @ 10:21 by Tri Rose) Smoking Status: Never smoker alcohol intake: never substance use type: does not use HPI HPI Details: RICHA HERNANDEZ, is a 29 F who presents to the office today for Office Procedures Physical Exam Coding PE Coding Pre-employment PE: Yes Coding Level of Care Code Attention Communications Administrator Diagnoses Physical exam, pre-employment Z02.1 Assessment and Plan Assessment and Plan (1) Physical exam, pre-employment: Status: Acute 08/22/24 1513 Date Chaim Shaffer Signature: Date (if applicable) CC: [facility] MR/BMS.BPon 07-26-2024 MR/BMS.BP [address], [place] [address] OFFICE VISIT Date of Service: 07/26/24 MR#: [id number] Acct: [id number] Name: RICHA HERNANDEZ Rep #: [id number] : 1995 Provider: ROBERTO brooks Age/Sex: 29/F Location: [facility] Status: Signed Intake Vital Signs 06/13/24 13:22 07/26/24 14:00 Height 5 ft 4 in 5 ft 4 in Weight: 202 lb BMI 34.7 BP 120/84 H 120/82 H Blood Pressure Location Lt brachial Lt brachial Position Sitting Sitting Respiration 16 16 Pulse 95 91 Pulse Source Monitor Monitor BP Intake Visit Reasons: 6 WK FU Accompanied by: Son Allergies No Known Allergies Allergy (Verified 07/26/24 14:04) Medications ???Medication ???Instructions ???Recorded ???Confirmed ???Type cholecalciferol (vitamin D3) 25 25 mcg PO QDAY 12/20/23 07/26/24 H istory mcg (1,000 unit) capsule fluoxetine 20 mg/5 mL (4 mg/mL) 60 mg (15 mL) PO QDAY 30 days #450 07/17/24 07/26/24 Rx oral solution mL PFSH Medical History Anxiety Ear infection URI (upper respiratory infection) Surgical History Hx of section Social History (Updated 12/20/23 @ 10:21 by Tri Rose) Smoking Status: Never smoker alcohol intake: never substance use type: does not use HPI History of Present Illness History provided by: patient HPI: Richa Hernanedz is a 29 year old female patient presenting today for a follow up evaluation. Reports she has been doing very well until 2 weeks ago when she had a panic attack. Has not had a panic attack since then. Reports anxiety hasn't been present hardly at all since last appointment. Is coming up on an anniversary of her father passing away which is difficult for her. Reports feelings of depression are less often but without working has been difficult. Is starting work on Tuesday as orientation for a new job. Is planning to start working at [employer] because she is unable to work day shift and get her son in daycare as it is too costly. Admits to some passive SI. Does feel mood will improve when she is working and is not spending 24/7 with her son. Sleep has been good but has been staying up later as she is trying to get some alone time. Is continuing to get 8-10 hours per night. Does report she has made some adjustments with ehr diet since learning about concerns with her brother's health. Reports she has the intention of getting her. Previous similar episode: Yes Age of first onset of symptoms: 11-20 years Review of Systems Constitutional Reports: fatigue; Denies: fever(s), chills or change in weight Eyes Denies: change in vision or blurry vision Ears, Nose, Mouth, Throat Denies: throat pain or neck pain Cardiovascular Denies: chest pain, palpitations or dyspnea Respiratory Denies: dyspnea or wheezing Gastrointestinal Reports: diarrhea; Denies: abdominal pain, nausea, vomiting or constipation Genitourinary Denies: dysuria or urinary frequency Musculoskeletal Denies: back pain or neck pain Integumentary/Breast Denies: rash, pruritus or erythema Neurological Reports: headache(s) Psychiatric Reports: anxiety, panic attacks (1x since last appointment ), hopelessness, loss of interest, irritability, difficulty concentrating and suicidal ideation (passive, infrequent); Denies: mood swings, change in sleep pattern, paranoia, memory loss, visual hallucinations, auditory hallucinations or homicidal ideation Endocrine Reports: fatigue Hematologic/Lymphati c Denies: easy bruising Allergic/Immunologic Denies: wheezing Exam Mental Status Exam - Psych Appearance casually dressed, adequately groomed and no apparent distress Attitude cooperative and calm Activity/Motor Behavior MSE activity/motor behavior finding no adventitious movements and appropriate eye contact Speech regular rate, regular volume and regular prosody Mood OK and anxious Affect flat, tearful and anxious Thought Process linear, logical and coherent Thought Content no delusions and no hallucinations Suicidal Ideation none Homicidal Ideation none Attention impaired (per patient self report) Concentration impaired (per patient self report) Sensorium/Orientatio n awake, alert and oriented x3 Memory/Cognition intact Insight good Judgement good Exam Constitutional Common normals: no acute distress, average body habitus and patient oriented x3 General appearance: anxious Neuro Common normals: patient oriented x3 Speech: speech normal Gait (neuro): normal gait Psych Psychiatry clinicians, please identify where your Mental Status Exam is documented: Mental Status Exam documented in the separate MSE Assessment Plan Assessment Plan (1) G (more content not included)... Normal [facility] MR/BMS.BPon 06-13-2024 MR/BMS.BP [facility] [address] [place] [address] [address] [place] [address] OFFICE VISIT Date of Service: 06/13/24 MR#: [id number] Acct: [id number] Name: RICHA HERNANDEZ Rep #: [id number] : 1995 Provider: ROBERTO brooks Age/Sex: 29/F Location: [facility] Status: Signed Intake Vital Signs 02/01/24 10:33 06/13/24 13:22 Height 5 ft 4 in 5 ft 4 in Weight: 202 lb BMI 34.7 BP 139/83 H 120/84 H Blood Pressure Location Rt brachial Lt brachial Position Sitting Sitting Respiration 18 16 Pulse 105 H 95 Pulse Source Monitor Monitor BP Intake Visit Reasons: follow up Accompanied by: Son Allergies No Known Allergies Allergy (Verified 06/13/24 13:25) Medications ???Medication ???Instructions ???Recorded ???Confirmed ???Type cholecalciferol (vitamin D3) 25 25 mcg PO QDAY 12/20/23 06/13/24 H istory mcg (1,000 unit) capsule fluoxetine 20 mg/5 mL (4 mg/mL) 60 mg (15 mL) PO QDAY 30 days #450 05/08/24 06/13/24 Rx oral solution mL PFSH Medical History Anxiety Ear infection URI (upper respiratory infection) Surgical History Hx of section Social History (Updated 12/20/23 @ 10:21 by Tri Rose) Smoking Status: Never smoker alcohol intake: never substance use type: does not use HPI History of Present Illness History provided by: patient HPI: Richa Hernandez is a 29 year old female patient presenting today for a follow up evaluation. States she has recently redone her son's room and he really likes it. Has resumed use fo fluoxetine and has only been waking 40mg daily instead of 60mg daily. 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 Is planning a trip to [place] this weekend. Denies SI/HI. Does struggle with a lack of energy and low mood at times. Has not been consistent with counseling and is sometimes only being seen every 2 weeks. Admits to some mild feelings of anxiety. Sleep has been good. Is getting at least 8 hours and will nap at times. Appetite has been good. Previous similar episode: Yes Age of first onset of symptoms: 11-20 years Review of Systems Constitutional Reports: fatigue; Denies: fever(s), chills or change in weight Eyes Denies: change in vision or blurry vision Ears, Nose, Mouth, Throat Denies: throat pain or neck pain Cardiovascular Denies: chest pain, palpitations or dyspnea Respiratory Denies: dyspnea or wheezing Gastrointestinal Reports: diarrhea; Denies: abdominal pain, nausea, vomiting or constipation Genitourinary Denies: dysuria or urinary frequency Musculoskeletal Denies: back pain or neck pain Integumentary/Breast Denies: rash, pruritus or erythema Neurological Reports: headache(s) Psychiatric Reports: anxiety, hopelessness, loss of interest, irritability and difficulty concentrating; Denies: mood swings, panic attacks, change in sleep pattern, paranoia, memory loss, visual hallucinations, auditory hallucinations, suicidal ideation or homicidal ideation Endocrine Reports: fatigue Hematologic/Lymphati c Denies: easy bruising Allergic/Immunologic Denies: wheezing Exam Mental Status Exam - Psych Appearance casually dressed, adequately groomed and no apparent distress Attitude cooperative and calm Activity/Motor Behavior MSE activity/motor behavior finding no adventitious movements and appropriate eye contact Speech regular rate, regular volume and regular prosody Mood OK Affect full range Thought Process linear, logical and coherent Thought Content no delusions and no hallucinations Suicidal Ideation none Homicidal Ideation none Attention impaired (per patient self report) Concentration impaired (per patient self report) Sensorium/Orientatio n awake, alert and oriented x3 Memory/Cognition intact Insight good Judgement good Exam Constitutional Common normals: no acute distress, average body habitus and patient oriented x3 Neuro Common normals: patient oriented x3 Speech: speech normal Gait (neuro): normal gait Psych Psychiatry clinicians, please identify where your Mental Status Exam is documented: Mental Status Exam documented in the separate MSE Assessment Plan Assessment Plan (1) Generalized anxiety disorder: Plan: - Increase fluoxetine from 40mg to 60mg daily - follow up in 6 weeks (2) PTSD (post-traumatic stress disorder): Plan: - Increase fluoxetine from 40mg to 60mg daily (3) Depression: Qualifiers: Depression Type: unspecified Qualified Code(s): F32.A (more content not included)... Normal [facility] MR/BMS.BPon 02-01-2024 MR/BMS. [facility] [address] [place] [address], [address] [place] [id number] OFFICE VISIT Date of Service: 02/01/24 MR#: [id number] Acct: [id number] Name: RICHA HERNANDEZ Rep #: [id number] : 1995 Provider: ROBERTO brooks Age/Sex: 28/F Location: [facility] Status: Signed Intake Vital Signs 12/20/23 10:22 02/01/24 10:33 Height 5 ft 4 in 5 ft 4 in Weight: 202 lb BMI 34.7 BP 139/83 H Blood Pressure Location Rt brachial Position Sitting Respiration 18 Pulse 105 H Pulse Source Monitor BP Intake Visit Reasons: 6wfu Accompanied by: Son Allergies No Known Allergies Allergy (Verified 02/01/24 10:34) Medications ???Medication ???Instructions ???Recorded ???Confirmed ???Type norethindrone 1.5 mg-ethinyl 1 tab PO QDAY 09/26/23 02/01/24 History estradiol 30 mcg(21)/iron 75 mg(7) tablet (Phuong Fe 1.5/30 (28)) cholecalciferol (vitamin D3) 25 25 mcg PO QDAY 12/20/23 02/01/24 History mcg (1,000 unit) capsule escitalopram oxalate 10 mg tablet 10 mg PO QDAY #30 tabs 02/01/24 02/01/24 Rx PFSH Medical History Anxiety Ear infection URI (upper respiratory infection) Surgical History Hx of section Social History (Updated 12/20/23 @ 10:21 by Tri Rose) Smoking Status: Never smoker alcohol intake: never substance use type: does not use HPI History of Present Illness History provided by: patient HPI: Richa Hernandez is a 28 year old female patient presenting today for a follow up evaluation. Patient report she has not increased the dose of her medication since last appointment for fear that she doesn't think it is going to be beneficial. [place] she was doing well enough but in the last week has had 2 panic attacks due to working more hours. Does feel that working 18 hours is too much and not they are wanting her to work 22 hours per week. Does report she has gone to 2 different counseling sessions and does not feel she has been doing this long enough for her to notice any benefit but is hopeful that this will help her to manage her mental health better. Admits to feelings of depression more than half the time. Did have a breakdown at work and was crying since she was discussing her son's father with a coworker. Does have interpersonal relationship issues at work. Admits to some passive SI. Denies plan or intent. Admits to feeling more depressed than anxious. Sleep has been good. 8 hours per night. Does not feel well rested in the morning. Reports energy to be low. Appetite has been good. Denies changes in appetite. Denies any recent changes in weight. When patient is having a panic attack she tries to distract herself or gain control of what is going on in order to reduce symptoms. Previous similar episode: Yes Age of first onset of symptoms: 11-20 years Review of Systems Constitutional Reports: fatigue; Denies: fever(s), chills or change in weight Eyes Denies: change in vision or blurry vision Ears, Nose, Mouth, Throat Denies: throat pain or neck pain Cardiovascular Denies: chest pain, palpitations or dyspnea Respiratory Denies: dyspnea or wheezing Gastrointestinal Reports: diarrhea; Denies: abdominal pain, nausea, vomiting or constipation Genitourinary Denies: dysuria or urinary frequency Musculoskeletal Denies: back pain or neck pain Integumentary/Breast Denies: rash, pruritus or erythema Neurological Reports: headache(s) Psychiatric Reports: anxiety, panic attacks, hopelessness, loss of interest, irritability, difficulty concentrating and suicidal ideation (passive, denies plan or intent); Denies: mood swings, change in sleep pattern, paranoia, memory loss, visual hallucinations, auditory hallucinations or homicidal ideation Endocrine Reports: fatigue Hematologic/Lymphati c Denies: easy bruising Allergic/Immunologic Denies: wheezing Exam Mental Status Exam - Psych Appearance casually dressed, adequately groomed and no apparent distress Attitude cooperative and calm Activity/Motor Behavior MSE activity/motor behavior finding no adventitious movements and appropriate eye contact Speech regular rate, regular volume and regular prosody Mood OK and anxious Affect anxious Thought Process linear, logical and coherent Thought Content no delusions and no hallucinations Suicidal Ideation passive; No intent and No plans Homicidal Ideation none Attention impaired (per patient self report) Concentration impaired (per patient self report) Sensorium/Orientatio n awake, alert and oriented x3 Memory/Cognition intact Insight good Judgement good Exam Constitutional Common normals: no acute distress, average body habitus and patient oriented x3 (more content not included)... Normal [facility] MR/BMS.BPon 12-20-2023 MR/BMS.BP [facility] [address], [address] [place] [address] OFFICE VISIT Date of Service: 12/20/23 MR#: [id number] Acct: [id number] Name: RICHA HERNANDEZ Rep #: [id number] : 1995 Provider: ROBERTO brooks Age/Sex: 28/F Location: [facility] Status: Signed Intake Vital Signs 11/07/23 14:17 12/20/23 10:18 12/20/23 10:22 Height 5 ft 4 in 5 ft 4 in 5 ft 4 in Weight: 202 lb BMI 34.7 BP 123/86 H 129/84 H Blood Pressure Location Rt brachial Rt brachial Position Sitting Sitting Pulse 99 111 H Pulse Source Monitor Monitor BP Intake Visit Reasons: 6 wk FU Is patient in pain?: No Allergies No Known Allergies Allergy (Verified 12/20/23 10:19) Medications ???Medication ???Instructions ???Recorded ???Confirmed ???Type norethindrone 1.5 mg-ethinyl 1 tab PO QDAY 09/26/23 12/20/23 History estradiol 30 mcg(21)/iron 75 mg(7) tablet (Phuong Fe 1.5/30 (28)) cholecalciferol (vitamin D3) 25 25 mcg PO QDAY 12/20/23 12/20/23 History mcg (1,000 unit) capsule fluoxetine 20 mg/5 mL (4 mg/mL) 60 mg (15 mL) PO QDAY #120 mL 12/20/23 12/20/23 Rx oral solution PFSH Medical History Anxiety Ear infection URI (upper respiratory infection) Surgical History Hx of section Social History (Updated 12/20/23 @ 10:21 by Tri Rose) Smoking Status: Never smoker alcohol intake: never substance use type: does not use HPI History of Present Illness History provided by: patient Chief complaint: Anxiety/Depression HPI: Richa Hernandez is a 28 year old female patient presenting today for a follow up evaluation. Did start her position at [employer] and ended up leaving after 2 weeks due to feeling like she was not being treated well. Is working at [employer] now and has been for about 2 weeks. Does not have a counselor any longer as she felt it was not beneficial with who she was seeing. Is thinking about trying to find someone through the counseling center. Admits to feelings of rejection from her counselors and feels it decreases her self esteem when a counselor does not work out for her. Is still struggling with closure from the father of her son and is hopeful for help with this through counseling. Has been feeling more depressed recently due to the father of her son not stepping up to be a father for him. Has had some passive SI/HI. Denies plan or intent. Has not been having increased anxiety daily but does report one episode of heightened anxiety since last appointment where she was in the same town as her ex boyfriend and this was a trigger for her. At this time felt she was on the brink of a panic attack. Does struggle to fall asleep every night because it is her only alone time so she wants to enjoy it. Does not struggle to stay asleep. Appetite is good. Denies changes in weight. Previous similar episode: Yes Age of first onset of symptoms: 11-20 years Review of Systems Constitutional Reports: fatigue; Denies: fever(s), chills or change in weight Eyes Denies: change in vision or blurry vision Ears, Nose, Mouth, Throat Denies: throat pain or neck pain Cardiovascular Denies: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 L503.0105 #### [facility] [address] [place], [address] CA,Total 9.0 mg/dL Normal 8.5-10.1 [facility] Comment on above: Performed By: #### L 503.6550, L500.4050, L503.6150, L501.9985, L506.1000, L503.0105 #### [facility] [address] [place], [address] Chloride [Moles/Vol] 107 mmol/L Normal 98-107 [facility] Comment on above: Performed By: #### L 503.6550, L500.4050, L503.6150, L501.9985, L506.1000, L503.0105 #### [facility] [address] [place], [address] CO2 [Moles/Vol] 24.0 mmol/L Normal 21.0-32.0 [facility] Comment on above: Performed By: #### L 503.6550, L500.4050, L503.6150, L501.9985, L506.1000, L503.0105 #### [facility] [address] [place], [address] Creatinine [Mass/Vol] 0.89 mg/dL Normal 0.55-1.02 [facility] Comment on above: Result Comment: The validity of the calculated GFR GFRAA in patients over 70 years has not been determined. Clinical correlation is essential. Performed By: #### L 503.6550, L500.4050, L503.6150, L501.9985, L506.1000, L503.0105 #### [facility] [address] [place], [address] EST GFR - AA 97 mL/min Normal >60 [facility] Comment on above: Result Comment: Afri can Tunisian GFR Calc Performed By: #### L 503.6550, L500.4050, L503.6150, L501.9985, L506.1000, L503.0105 #### [facility] [address] [place], [address] GAP 6 Normal 5-15 [facility] Comment on above: Performed By: #### L 503.6550, L500.4050, L503.6150, L501.9985, L506.1000, L503.0105 #### [facility] [address] [place], [address] GFR/1.73 sq M.predicted among non-blacks MDRD (S/P/Bld) [Vol rate/Area] 81 mL/min/{1.73_m2} Normal >60 [facility] Comment on above: Result Comment: Non- GFR Calc Performed By: #### L 503.6550, L500.4050, L503.6150, L501.9985, L506.1000, L503.0105 #### [facility] [address] [place], [address] Globulin (S) [Mass/Vol] 4.2 g/dL Normal 2.2-4.2 [facility] Comment on above: Performed By: #### L 503.6550, L500.4050, L503.6150, L501.9985, L506.1000, L503.0105 #### [facility] [address] [place], [address] Glucose [Mass/Vol] 149 mg/dL High 74-106 [facility] Comment on above: Result Comment: Fast ing Glucose result greater than or equal to 126 mg/dL suggests DIABETES MELLITUS per A.D.A. criteria. Performed By: #### L 503.6550, L500.4050, L503.6150, L501.9985, L506.1000, L503.0105 #### [facility] [address] [place], [address] Potassium [Moles/Vol] 3.5 mmol/L Normal 3.5-5.1 [facility] Comment on above: Performed By: #### L 503.6550, L500.4050, L503.6150, L501.9985, L506.1000, L503.0105 #### [facility] [address] [place], [address] Sodium [Moles/Vol] 137 mmol/L Normal 136-145 [facility] Comment on above: Performed By: #### L 503.6550, L500.4050, L503.6150, L501.9985, L506.1000, L503.0105 #### [facility] [address] [place], [address] T PROT 7.4 g/dL Normal 6.4-8.2 [facility] Comment on above: Performed By: #### L 503.6550, L500.4050, L503.6150, L501.9985, L506.1000, L503.0105 #### [facility] [address] [place], [address] Urea nitrogen [Mass/Vol] 7 mg/dL Normal 7-18 [facility] Comment on above: Performed By: #### L 503.6550, L500.4050, L503.6150, L501.9985, L506.1000, L503.0105 #### [facility] [address] [place], [address] Ferritinon 09-19-2023 Ferritin [Mass/Vol] 6 ng/mL Low 8-252 [facility] Comment on above: Performed By: #### L 503.6550, L500.4050, L503.6150, L501.9985, L506.1000, L503.0105 #### [facility] [address] [place], [address] Hemoglobin A1con 09-19-2023 HbA1c (Bld) [Mass fraction] 4.8 % Normal 3.8-5.6 [facility] Comment on above: Result Comment: Norm al < 5.7 % Prediabetic 5.7 - 6.4 % Diabetic >or= 6.5 % Please note range changes. Performed By: #### L 503.6550, L500.4050, L503.6150, L501.9985, L506.1000, L503.0105 #### [facility] [address] [place], [address] Ironon 09-19-2023 Iron [Mass/Vol] 39 ug/dL Low 50-170 [facility] Comment on above: Performed By: #### L 503.6550, L500.4050, L503.6150, L501.9985, L506.1000, L503.0105 #### [facility] [address] [place], [address] Vitamin B12on 09-19-2023 Cobalamin (Vitamin B12) [Mass/Vol] 405 pg/mL Normal 211-911 [facility] Comment on above: Performed By: #### L 503.6550, L500.4050, L503.6150, L501.9985, L506.1000, L503.0105 #### [facility] [address] [place], [address] Vitamin D,25 Hydroxyon 09-18 Vitamin D 25-OH 11.8 ng/mL Normal [facility] Comment on above: Result Comment: Lauren min D 25(OH) Status Range Deficiency <20 ng/mL (50nmol/L) Insufficiency 20 - 30 ng/mL (50 - 75 nmol/L) Sufficiency 30 - 100 ng/mL (75 - 250 nmol/L) Toxicity >100 ng/mL (>250 nmol/L) Performed By: #### L 503.6550, L500.4050, L503.6150, L501.9985, L506.1000, L503.0105 ####[facility] [id number] [place], [address] Absolute lymphocyte countOrd ered By: Silvio Trujillo on 05-08-2023 Lymphocytes Auto (Unsp spec) [#/Vol] 0.46 10*3/uL 0.83-4.51 [facility] Activated partial thrombopla stin time (aPTT) in platelet poor plasma by coagulation aOrdered By: Silvio Trujillo on 05-08-2023 aPTT Coag (PPP) [Time] 28.1 s 24.1-36.2 [facility] Amorphous sediment detection in urine sediment by light microscopyOrdered By: Silvio Trujillo on 05-08-2023 Amorphous sediment LM Ql (Urine sed) 1+ PHOS [facility] Automated lymphocyte count a s percentage of total leukocytesOrdered By: Silvio Trujillo on 05-08-2023 Lymphocytes/100 WBC Auto (Unsp spec) 9.3 % 19-41 [facility] Basophil percentageOrdered B y: Silvio Trujillo on 05-08-2023 Basophil percentage 0 SEEN /hpf 0-5 [facility] Basophils/100 WBC (Bld) 0.4 % 0-1 [facility] Chloride [Moles/Vol] 107 mmol/L 98-107 [facility] Eosinophils/100 WBC (Bld) 0.6 % 0-5 [facility] Glucose [Mass/Vol] 105 mg/dL 74-106 [facility] Comment on above: Fasting Glucose resu lt from 100 to 125 mg/dL suggests IMPAIRED HOMEOSTASIS per A.D.A. criteria. Hemoglobin (Bld) [Mass/Vol] 13.5 g/dL 12.0-15.0 [facility] Lactate [Moles/Vol] 1.3 mmol/L 0.4-2.0 [facility] Monocytes/100 WBC (Bld) 16.9 % 0-10 [facility] Neutrophils (Bld) [#/Vol] 3.6 10*3/uL 2.0-7.7 [facility] Neutrophils/100 WBC (Bld) 72.6 % 47-70 [facility] Potassium [Moles/Vol] 3.6 mmol/L 3.5-5.1 [facility] Sodium [Moles/Vol] 136 mmol/L 136-145 [facility] WBC (Bld) [#/Vol] 5.0 10*3/uL 4.4-11.0 [facility] Bilirubin Test strip Ql (U)O rdered By: Silvio Trujillo on 05-08-2023 Bilirubin Ql (U) Negative Negative [facility] Determination of erythrocyte mean corpuscular volume (MCV)Ordered By: Silvio Trujillo on 05-08-2023 MCV (RBC) [Entitic vol] 84.8 fL 81-99 [facility] Erythrocyte distribution wid th ratioOrdered By: Silvio Trujillo on 05-08-2023 Erythrocyte distribution width (RBC) [Ratio] 12.0 % 11.6-14.6 [facility] Erythrocyte distribution wid th standard deviationOrdered By: Silvio Trujillo on 05-08-2023 Erythrocyte distribution width (RBC) [Entitic vol] 37.1 fL 35.1-43.9 [facility] Hematocrit Auto (Bld) [Volum e fraction]Ordered By: Silvio Trujillo on 05-08-2023 Hematocrit (Bld) [Volume fraction] 40.8 % 37-47 [facility] Immature granulocytes/100 WB C Auto (Bld)Ordered By: Silvio Trujillo on 05-08-2023 Immature granulocytes/100 WBC (Bld) 0.200 % 0.0-0.9 [facility] Comment on above: IG% - Immature Granu locytes (promyelocytes, myelocytes and metamyelocytes) > 1% indicates that a LEFT SHIFT is Present. Ketones Test strip Ql (U)Ord ered By: Silvio Trujillo on 05-08-2023 Ketones Ql (U) Negative Negative [facility] - Chemistry and C hemistry - challengeOrdered By: Silvio Trujillo on 05-08-2023 CO2 [Moles/Vol] 24.0 mmol/L 21.0-32.0 [facility] Urea nitrogen/Creatinine [Mass ratio] 9.7 mg/mg 10-20 [facility] - CoagulationOrde red By: Silvio Trujillo on 05-08-2023 INR Coag (Bld) [Relative time] 1.1 {INR} [facility] PT Coag (PPP) [Time] 13.8 s 11.7-14.9 [facility] - Hematology and Cell countsOrdered By: Silvio Trujillo on 05-08-2023 MCH (RBC) [Entitic mass] 28.1 pg 27.0-32.0 [facility] MCHC (RBC) [Mass/Vol] 33.1 g/dL 32-36 [facility] Nucleated RBC/100 WBC (Bld) [Ratio] 0 % 0-5 [facility] Platelet mean volume (Bld) [Entitic vol] 13.5 fL 6.2-12.0 [facility] Platelets (Bld) [#/Vol] 140 10*3/uL 150-450 [facility] - Microbiology an d Antimicrobial susceptibilityOrdered By: Silvio Trujillo on 05-08-2023 SARS-CoV-2 (COVID-19) RNA STEPHANIE+probe Ql (Unsp spec) Influenzae A [facility] Mucus LM Ql (Urine sed)Order ed By: Silvio Trujillo on 05-08-2023 Mucus Ql (Urine sed) 0 SEEN /hpf [facility] Nitrite Test strip Ql (U)Ord ered By: Silvio Trujillo on 05-08-2023 Nitrite Ql (U) Negative Negative [facility] No Panel InformationOrdered By: Silvio Trujillo on 05-08-2023 Urine RBC 0 SEEN /hpf 0-5 [facility] Estimated Creatinine Clearance Calc 100.01 ml/min [facility] Estimated GFR (MDRD) Amer 94 mL/min >60 [facility] Comment on above: GFR Calc Estimated GFR (MDRD) Non-Af Amer 77 mL/min >60 [facility] Comment on above: Non- GFR Calc Protein Test strip Ql (U)Ord ered By: Silvio Trujillo on 05-08-2023 Protein Ql (U) Negative Negative [facility] RBC Auto (Bld) [#/Vol]Ordere d By: Silvio Trujillo on 05-08-2023 RBC (Bld) [#/Vol] 4.81 10*6/uL 4.2-5.4 [facility] Serum or plasma calcium boo urement (mass/volume)Ordered By: Silvio Trujillo on 05-08-2023 Calcium [Mass/Vol] 9.1 mg/dL 8.5-10.1 [facility] Serum or plasma creatinine m easurement (mass/volume)Ordered By: Silvio Trujillo on 05-08-2023 Creatinine [Mass/Vol] 0.93 mg/dL 0.55-1.02 [facility] Comment on above: The validity of the calculated GFR & GFRAA in patients over 70 years has not been determined. Clinical correlation is essential. Serum or plasma urea nitroge n measurement (mass/volume)Ordered By: Silvio Trujillo on 05-08-2023 Urea nitrogen [Mass/Vol] 9 mg/dL 7-18 [facility] Squamous epithelial cells de tection in urine sediment by light microscopyOrdered By: Silvio Trujillo on 05-08-2023 Epithelial cells.squamous LM Ql (Urine sed) 5-10 SEEN /hpf 5-10 [facility] Thin prep Papanicolaou smear with manual screeningOrdered By: Silvio Trujillo on 05-08-2023 Thin prep Papanicolaou smear with manual screening 5 5-15 [facility] Urine blood detectionOrdered By: Silvio Trujillo on 05-08-2023 RBC Ql (U) Negative Negative [facility] Urine clarityOrdered By: Mirtha Trujillo on 05-08-2023 Clarity (U) Sl. Cloudy Clear [facility] Urine color determinationOrd ered By: Silvio Trujillo on 05-08-2023 Color (U) Yellow Yellow [facility] Urine glucose detectionOrder ed By: Silvio Trujillo on 05-08-2023 Glucose Ql (U) Normal mg/dl Normal [facility] Urine leukocyte esterase det ection by dipstickOrdered By: Silvio Trujillo on 05-08-2023 Leukocyte esterase Test strip Ql (U) Negative Negative [facility] Urine pHOrdered By: Silvio melendrez on 05-08-2023 pH (U) 8.0 [pH] 5.0 - 8.0 [facility] Urine sediment bacteria coun t by microscopy (number/high power field)Ordered By: Silvio Trujillo on 05-08-2023 Bacteria LM.HPF (Urine sed) [#/Area] 0 /[HPF] None Seen [facility] Urine specific gravity measu rementOrdered By: Silvio Trujillo on 05-08-2023 Specific gravity (U) [Rel density] 1.010 1.002-1.030 [facility] Urine urobilinogen measureme ntOrdered By: Silvio Trujillo on 05-08-2023 Urobilinogen Ql (U) Normal mg/dl Normal [facility] Absolute lymphocyte countOrd ered By: Danitza Allred on 11-18-2022 Lymphocytes Auto (Unsp spec) [#/Vol] 1.67 10*3/uL 0.83-4.51 [facility] Basophil percentageOrdered B y: Danitza Allred on 11-18-2022 Basophils/100 WBC (Bld) 0.5 % 0-1 [facility] Bilirubin [Mass/Vol] 0.40 mg/dL 0.20-1.00 [facility] Comment on above: For patients on eltr ombopag therapy, use of Dimension [place] TBIL is not recommended. Chloride [Moles/Vol] 107 mmol/L 98-107 [facility] Eosinophils/100 WBC (Bld) 2.3 % 0-5 [facility] Glucose [Mass/Vol] 122 mg/dL 74-106 [facility] Comment on above: Fasting Glucose resu lt from 100 to 125 mg/dL suggests IMPAIRED HOMEOSTASIS per A.D.A. criteria. Neutrophils (Bld) [#/Vol] 5.7 10*3/uL 2.0-7.7 [facility] Neutrophils/100 WBC (Bld) 69.2 % 47-70 [facility] Potassium [Moles/Vol] 3.9 mmol/L 3.5-5.1 [facility] Protein [Mass/Vol] 7.7 g/dL 6.4-8.2 [facility] Sodium [Moles/Vol] 137 mmol/L 136-145 [facility] WBC (Bld) [#/Vol] 8.2 10*3/uL 4.4-11.0 [facility] Blood erythrocytes count (nu mber/volume)Ordered By: Danitza Allred on 11-18-2022 RBC (Bld) [#/Vol] 5.02 10*6/uL 4.2-5.4 [facility] Blood hemoglobin measurement (mass/volume)Ordered By: Danitza Allred on 11-18-2022 Hemoglobin (Bld) [Mass/Vol] 14.4 g/dL 12.0-15.0 [facility] Blood lymphocytes/100 leukoc ytesOrdered By: Danitza Allred on 11-18-2022 Lymphocytes/100 WBC (Bld) 20.4 % 19-41 [facility] Blood monocytes/100 leukocyt esOrdered By: Danitza Allred on 11-18-2022 Monocytes/100 WBC (Bld) 7.4 % 0-10 [facility] Blood platelet mean volumeOr dered By: Danitza Allred on 11-18-2022 Platelet mean volume (Bld) [Entitic vol] 13.4 fL 6.2-12.0 [facility] Determination of erythrocyte mean corpuscular volume (MCV)Ordered By: Danitza Allred on 11-18-2022 MCV (RBC) [Entitic vol] 87.6 fL 81-99 [facility] Hematocrit Auto (Bld) [Volum e fraction]Ordered By: Danitza Miana on 11-18-2022 Hematocrit (Bld) [Volume fraction] 44.0 % 37-47 [facility] - Chemistry and C hemistry - challengeOrdered By: Danitza Allred on 11-18-2022 ALP [Catalytic activity/Vol] 88 U/L 45-117 [facility] ALT [Catalytic activity/Vol] 91 U/L 13-56 [facility] CO2 [Moles/Vol] 24.0 mmol/L 21.0-32.0 [facility] Globulin (S) [Mass/Vol] 4.0 g/dL 2.2-4.2 [facility] Urea nitrogen/Creatinine [Mass ratio] 13.5 mg/mg 10-20 [facility] - Hematology and Cell countsOrdered By: Danitza Allred on 11-18-2022 Erythrocyte distribution width (RBC) [Entitic vol] 38.5 fL 35.1-43.9 [facility] Erythrocyte distribution width (RBC) [Ratio] 12.0 % 11.6-14.6 [facility] Immature granulocytes/100 WBC (Bld) 0.200 % 0.0-0.9 [facility] Comment on above: IG% - Immature Granu locytes (promyelocytes, myelocytes and metamyelocytes) > 1% indicates that a LEFT SHIFT is Present. MCH (RBC) [Entitic mass] 28.7 pg 27.0-32.0 [facility] Nucleated RBC/100 WBC (Bld) [Ratio] 0 % 0-5 [facility] MCHC Auto (RBC) [Mass/Vol]Or dered By: Danitza Allred on 11-18-2022 MCHC (RBC) [Mass/Vol] 32.7 g/dL 32-36 [facility] Neisseria gonorrhoeae genita l PCROrdered By: Danitza Allred on 11-18-2022 N. gonorrhoeae DNA STEPHANIE+probe Ql (Genital specimen) [facility] No Panel InformationOrdered By: Danitza Allred on 11-18-2022 Chlamydia trachomatis (PCR) [facility] Estimated GFR (MDRD) Amer 90 mL/min >60 [facility] Comment on above: GFR Calc Estimated GFR (MDRD) Non-Af Amer 74 mL/min >60 [facility] Comment on above: Non- GFR Calc Platelets bldOrdered By: Jonny Allred on 11-18-2022 Platelets (Bld) [#/Vol] 197 10*3/uL 150-450 [facility] Serum or plasma albumin boo urement (mass/volume)Ordered By: Danitza Allred on 11-18-2022 Albumin [Mass/Vol] 3.7 g/dL 3.2-5.0 [facility] Serum or plasma albumin/glob ulin mass ratioOrdered By: Danitza Allred on 11-18-2022 Albumin/Globulin [Mass ratio] 0.9 {ratio} 0.9-2.4 [facility] Serum or plasma calcium boo urement (mass/volume)Ordered By: Danitza Allred on 11-18-2022 Calcium [Mass/Vol] 9.2 mg/dL 8.5-10.1 [facility] Serum or plasma creatinine m easurement (mass/volume)Ordered By: Danitza Allred on 11-18-2022 Creatinine [Mass/Vol] 0.96 mg/dL 0.55-1.02 [facility] Comment on above: The validity of the calculated GFR & GFRAA in patients over 70 years has not been determined. Clinical correlation is essential. Serum or plasma urea nitroge n measurement (mass/volume)Ordered By: Danitza Allred on 11-18-2022 Urea nitrogen [Mass/Vol] 13 mg/dL 7-18 [facility] Thin prep Papanicolaou smear with manual screeningOrdered By: Danitza Allred on 11-18-2022 Thin prep Papanicolaou smear with manual screening 48 U/L 15-37 [facility] Thin prep Papanicolaou smear with manual screening 6 5-15 [facility] CNOVon 05-18-2021 CNOV Office Visit ([facility]WSTR) RICHA HERNANDEZ ([id number]) 1995 F Date Time Provider Department 05/18/21 3:30 PM NISHA VALDEZ [facility] During your visit today, we recorded the following information about you: Temperature Pulse Respiration Blood pressure 98.6 degrees 131/minute 20/minute 124/88 Weight 94.2 kg Nisha Valdez APRN.CNP 05/18/2021 3:48 PM Signed ASSESSMENT/PLAN: 1. Skin infection - ICD9: 686.9, ICD10: L08.9 (primary diagnosis) - Begin treatment with Omnicef - Area of cellulitis defined with pen, seek further attention if this area continues to enlarge - CEFDINIR 250 MG/5 ML ORAL SUSPENSION 2. Insect bite of right lower leg, initial encounter - ICD9: 916.4, E906.4, ICD10: S80.861A, W57.XXXA - kenalog cream twice daily x 7 days. - Follow-up with your PCP in 3-5 days if symptoms have not improved or sooner if symptoms worsen - Discussed red flags and need for immediate medical evaluation if any occur. - Discussed supportive care treatment. - Discussed expected course of illness Nisha Valdez APRN.CNP Insect Bites Insect bites can cause red bumps in people who are allergic to them, but they cause no visible skin changes in people who are not allergic. Therefore, only one or two people in a family usually get red bumps from insect bites, even though everyone may have been bitten. Children are especially likely to react to insect bites. Although red bumps are the most common sign of' insect bites, people who are very allergic and people with tender skin, such as children, may develop blisters over the bites as well. Most often, insect bites are itchy. The most common insects to cause bites are fleas and mosquitoes. Flea bites are usually painless, so people are often unaware of being bitten. Mosquito bites are often noticed by adults but are sometimes overlooked by busy children until the bumps and itching appear. Horseflies and deerflies can cause insect bites, but the bite is painful, so most people notice and remember being bitten. The treatment of insect bites includes avoidance of the insects in the future. Defleaing an animal rids the animal of the fleas, but then fleas may be more likely to bite people. Be sure to deflea the house and yard as well. Susceptible people should wear an insect repellant such as Off, Cutter, or 6-12 until the fleas are gone. People sensitive to mosquito bites should avoid being outdoors in the evening, when mosquitoes are most active. Insect repellents can be useful for the prevention of the bites as well. Removal of obvious breeding areas of standing water can be helpful. Insect bites, especially flea bites, can sometimes be very long lasting, with bumps persisting for several weeks. This is especially common when the spots are being scratched. Also, bites can become infected when scratched often, especially in children. You may have been given a cortisone cream to put on the bumps to help stop the itching, or an antibiotic if your bites look infected. If you have problems sleeping at night because of itching, you can take diphenhydramine (Benadryl), an [id number]-[id number] medication. Adults may need 50 or 75 mg, and children may need two or three times the child's dose printed on the bottle. Often, brown spots remain after the bumps heal. This is just a temporary color change, and scarring generally does not occur except when bites become infected. Nisha Valdez APRN.[employer] PROFESSOR 05/18/2021 3:53 PM Signed Subjective HPI Richa Hernandez is a 25 [...] medication for this at home. She did paula the spot with a pen so she [...] Test (KETO-DIASTIX) strp 1 Strip four times (more content not included)... Normal [facility] 01-02-2020 [facility] . MICRO - Microbiology PROCEDURE: Urine Culture [*1] SOURCE: Urine BODY SITE: COLLECTED DATE/TIME: 12/30/2019 22:06 EDT RECEIVED DATE/TIME: 12/31/2019 15:28 EDT START DATE/TIME: 12/31/2019 15:28 EDT FREE TEXT SOURCE: FINAL REPORTS Final Report [] Verified Date/Time/Personnel: 01/02/2020 07:41 EDT <10,000 cfu/ml. No Significant growth. Sensitivity not indicated. PRELIMINARY REPORTS Preliminary Report [] Verified Date/Time/Personnel: 01/01/2020 10:03 EDT Culture results pending. Performing Locations *1: This test was performed at: [facility], [address] [place] [address], [facility] , [facility] Normal [facility] ([place] Comment on above: Performed By: #### C MP, GFR #### [address] [address] .Auto Diffon 12-31-2019 Ammonia (P) [Mass/Vol] 0.50 10 3/mcL Normal 0.15-1.00 [facility] ([place]) Comment on above: Performed By: #### C MP, GFR #### [address] [address] Basophils (Bld) [#/Vol] 0.00 10 3/mcL Normal 0.00-0.19 [facility] ([place] Comment on above: Performed By: #### C MP, GFR #### [address] [address] Basophils/100 WBC (Bld) 0.2 % Normal 0.0-2.5 [facility] ([place]) Comment on above: Performed By: #### C MP, GFR #### [address] [address] Eosinophils (Bld) [#/Vol] 0.10 10 3/mcL Normal 0.00-0. 40 [facility] ([place] Comment on above: Performed By: #### C MP, GFR #### [address] [address] Eosinophils/100 WBC (Bld) 1.5 % Normal 0.0-7.0 [facility] ([place] Comment on above: Performed By: #### C MP, GFR #### [address] [address] Lymphocytes (Bld) [#/Vol] 0.90 10 3/mcL Normal 0.77-3. 85 [facility] ([place] Comment on above: Performed By: #### C MP, GFR #### [address] [address] Lymphocytes/100 WBC (Bld) 10.2 % Normal 10.0-50.0 [facility] ([place] Comment on above: Performed By: #### C MP, GFR #### [id number] [place], [place] [address] Monocytes/100 WBC (Bld) 5.6 % Normal 1.7-13.0 [facility] ([place]) Comment on above: Performed By: #### C MP, GFR #### [id number] [place], [place] [address] Neutrophils/100 WBC (Bld) 82.5 % High 37.0-80.0 [facility] ([place]) Comment on above: Performed By: #### C MP, GFR #### Jeni [address] [address] .GFRon 12-31-2019 GFR 113 ml/min/1.73sqm Normal [facility] ([place]) Comment on above: Result Comment: GFR Population mean for , Non- Americans Ages 20-29 = 116 mL/min/1.73 sq.m. Ages 30-39 = 107 mL/min/1.73 sq.m. Ages 40-49 = 99 mL/min/1.73 sq.m. Ages 50-59 = 93 mL/min/1.73 sq.m. Ages 60-69 = 85 mL/min/1.73 sq.m. Ages 70+ = 75 mL/min/1.73 sq.m. Chronic Kidney Disease: Less than 60 mL/min/1.73 square meters End Stage Renal Disease: Less than 15 mL/min/1.73 square meters Performed By: #### C MP, GFR #### [place] [address] [place], [place] [address] GFR Non- 93 ml/min/1.73sqm Normal [facility] ([place]) Comment on above: Result Comment: GFR Population mean for , Non- Americans Ages 20-29 = 116 mL/min/1.73 sq.m. Ages 30-39 = 107 mL/min/1.73 sq.m. Ages 40-49 = 99 mL/min/1.73 sq.m. Ages 50-59 = 93 mL/min/1.73 sq.m. Ages 60-69 = 85 mL/min/1.73 sq.m. Ages 70+ = 75 mL/min/1.73 sq.m. Chronic Kidney Disease: Less than 60 mL/min/1.73 square meters End Stage Renal Disease: Less than 15 mL/min/1.73 square meters Performed By: #### C MP, GFR #### [place] [address] .NEUABSon 12-31-2019 Neutrophils (Bld) [#/Vol] 7.20 10 3/mcL High 2.85-6. 16 [facility] ([place] Comment on above: Performed By: #### C MP, GFR #### [address] [address] .Urinalysis Microscopic (AO) on 12-31-2019 RBC (U) [#/Vol] LOADED Abnormal None Seen [facility] ([place] Comment on above: Performed By: #### C MP, GFR #### [address] [address] UA Bacteria Trace Abnormal [facility] ([place] Comment on above: Performed By: #### C MP, GFR #### [place] [address] UA Mucous 1+ /hpf Normal [facility] ([place] Comment on above: Performed By: #### C MP, GFR #### [place] [address] UA Squam Epithelial 0-5 Abnormal None Seen [facility] ([place]) Comment on above: Performed By: #### C MP, GFR #### [place] [address] UA WBC 5-10 Abnormal None Seen [facility] ([place] Comment on above: Performed By: #### C MP, GFR #### [address] [address] CBCon 12-31-2019 Erythrocyte distribution width (RBC) [Ratio] 13.2 % Normal 11.5-14.5 [facility] ([place] Comment on above: Performed By: #### C MP, GFR #### [address] [address] Hematocrit (Bld) [Volume fraction] 36.1 % Low 37.0-47.0 [facility] ([place] Comment on above: Performed By: #### C MP, GFR #### [address] [address] Hemoglobin (Bld) [Mass/Vol] 12.1 G/dL Normal 12.0-16.0 [facility] ([place] Comment on above: Performed By: #### C MP, GFR #### [address] [address] MCH (RBC) [Entitic mass] 30.4 pg Normal 27.0-31.2 [facility] ([place] Comment on above: Performed By: #### C MP, GFR #### [address] [address] MCHC (RBC) [Mass/Vol] 33.7 G/dL Normal 33.0-37.0 [facility] ([place]) Comment on above: Performed By: #### C MP, GFR #### [address] [address] MCV (RBC) [Entitic vol] 90.4 fL Normal 80.0-94.0 [facility] ([place]) Comment on above: Performed By: #### C MP, GFR #### [address] [address] Platelet mean volume (Bld) [Entitic vol] 11.2 fL High 7.4-10.4 [facility] ([place] Comment on above: Performed By: #### C MP, GFR #### [address] [address] Platelets (Bld) [#/Vol] 138 10 3/mcL Normal 130-400 [facility] ([place] Comment on above: Performed By: #### C MP, GFR #### [address] [address] RBC (Bld) [#/Vol] 3.99 10 6/mcL Low 4.20-5.40 [facility] ([place]) Comment on above: Performed By: #### C MP, GFR #### [address] [address] WBC (Bld) [#/Vol] 8.70 10 3/mcL Normal 4.60-10.80 [facility] ([place] Comment on above: Performed By: #### C MP, GFR #### [address] [address] CMPon 12-31-2019 Albumin [Mass/Vol] 2.6 G/dL Low 3.5-5.0 [facility] ([place]) Comment on above: Performed By: #### C MP, GFR #### [address] [address] Albumin/Globulin [Mass ratio] 0.7 {ratio} Low 1.1-2.5 [facility] ([place] Comment on above: Performed By: #### C MP, GFR #### [address] [address] ALP [Catalytic activity/Vol] 153 U/L High 40-135 [facility] ([place] Comment on above: Performed By: #### C MP, GFR #### [address] [address] ALT [Catalytic activity/Vol] 33 U/L Normal 14-59 [facility] ([place] Comment on above: Performed By: #### C MP, GFR #### [address] [address] AST [Catalytic activity/Vol] 47 U/L High 10-40 [facility] ([place] Comment on above: Performed By: #### C MP, GFR #### [address] [address] Bili Total 0.3 mg/dL Normal 0.2-1.0 [facility] ([place] Comment on above: Result Comment: Use of this assay is not recommended for patients undergoing treatment with eltrombopag due to the potential for falsely elevated results. Performed By: #### C MP, GFR #### [address] [address] Calcium [Mass/Vol] 9.0 mg/dL Normal 8.4-10.2 [facility] ([place] Comment on above: Performed By: #### C MP, GFR #### [address] [address] Chloride [Moles/Vol] 103 mmol/L Normal 98-107 [facility] ([place] Comment on above: Performed By: #### C MP, GFR #### [address] [address] CO2 [Moles/Vol] 27 mmol/L Normal 22-29 [facility] ([place] Comment on above: Performed By: #### C MP, GFR #### [address] [address] Creatinine [Mass/Vol] 0.77 mg/dL Normal 0.55-1.02 [facility] ([place]) Comment on above: Performed By: #### C MP, GFR #### [address] [address] Electrolyte Balance 9.0 mEq/L Normal [facility] ([place]) Comment on above: Performed By: #### C MP, GFR #### [address] [address] Globulin (S) [Mass/Vol] 3.7 G/dL Normal [facility] ([place] Comment on above: Performed By: #### C MP, GFR #### [address] [address] Glucose [Mass/Vol] 97 mg/dL Normal 70-105 [facility] ([place] Comment on above: Performed By: #### C MP, GFR #### [address] [address] Potassium [Moles/Vol] 3.8 mmol/L Normal 3.5-5.1 [facility] ([place]) Comment on above: Performed By: #### C MP, GFR #### [address] [place], [place] [address] Protein [Mass/Vol] 6.3 G/dL Low 6.4-8.2 [facility] ([place] Comment on above: Performed By: #### C MP, GFR #### [address] [place], [place] [address] Sodium [Moles/Vol] 139 mmol/L Normal 136-145 [facility]) Comment on above: Performed By: #### C MP, GFR #### [address] [address] Urea nitrogen [Mass/Vol] 5 mg/dL Low 7-18 [facility]) Comment on above: Performed By: #### C MP, GFR #### [address] [address] Urea nitrogen/Creatinine [Mass ratio] 6 ratio Low 7-27 [facility]) Comment on above: Performed By: #### C MP, GFR #### [address] [address] Final Surgical Pathology Rep [facility] 12-31-2019 Final Surgical Pathology Report . 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 COMMENT: [facility] - [id number] CLINICAL INFORMATION: Procedure: SECTION Preoperative diagnosis: NON-REASSURING HEART RATE TRACING. Postoperative diagnosis: NON-REASSURING HEART RATE TRACING. SPECIMEN: PLACENTA GROSS DESCRIPTION: Received in formalin, labeled with the patients name, Case #[id number], and placenta is a buckner placenta weighing 790 g and measuring 18 x 17 x 3.4 cm. The 3 vessel umbilical cord inserts 6 cm to the nearest placental margin, measures 40 cm long, and ranging from 1 to 2.5 cm in diameter. Extraplacental membranes are breswter -stone, slightly green stained, opaque and inserting at the placental margin. The surface is purple-blue with arborizing vasculature. The maternal surface is red-brown with intact lobulations with focal white specks and a peripherally located yellow rubbery area. On cut section the disc is red-brown, soft and spongy with peripherally located lesion on the maternal surface measuring 3 x 2 x 0.2 cm. Shake Sawyer sections in 3 cassettes. Dictated by NORBERTO REN MICROSCOPIC DESCRIPTION: Slides reviewed. Electronically Signed by Pathology Report verified by [facility] Electronically signed by PAULA SAMUEL DO Sign out Date: 12/31/2019 13:09 Performing Lab: [facility], [address] [place] [address] Normal [facility] ([place] Comment on above: Performed By: #### C MP, GFR #### [address] [address] UAon 12-31-2019 Color (U) Yellow Normal [facility] ([place]) Comment on above: Performed By: #### C MP, GFR #### [address] [address] Glucose (U) [Mass/Vol] Negative Normal Negative [facility] ([place]) Comment on above: Performed By: #### C MP, GFR #### [address] [address] Ketones Ql (U) Negative Normal Negative [facility] ([place]) Comment on above: Performed By: #### C MP, GFR #### [address] [address] UA Appear Slightly Cloudy Abnormal Clear [facility] ([place]) Comment on above: Performed By: #### C MP, GFR #### [address] [address] UA Blood Large Abnormal Negative [facility] ([place]) Comment on above: Performed By: #### C MP, GFR #### [address] [address] UA Leuk Est Trace Abnormal Negative [facility] ([place]) Comment on above: Performed By: #### C MP, GFR #### [address] [address] UA Nitrite Negative Normal Negative [facility] ([place] Comment on above: Performed By: #### C MP, GFR #### [address] [address] UA pH 7.0 Normal 5.0 - 8.0 [facility] ([place] Comment on above: Performed By: #### C MP, GFR #### [address] [address] UA Protein Trace Normal Negative [facility] ([place] Comment on above: Performed By: #### C MP, GFR #### [address] [address] UA Spec Grav 1.025 Normal 1.015-1.025 [facility] ([place] Comment on above: Performed By: #### C MP, GFR #### [place] [address] UA Specimen Type Clean Catch Normal [facility] ([place] Comment on above: Performed By: #### C MP, GFR #### [address] [address] UA Urobilinogen 0.2 E.U./dL Normal 0.2-1.0 [facility] ([place]) Comment on above: Performed By: #### C MP, GFR #### [place] [address] Urobilinogen Qn (U) Negative Normal Negative [facility] ([place] Comment on above: Performed By: #### C MP, GFR #### [place] [address] US PELVIS NON-OB LIMITEDon 1 US PELVIS NON-OB LIMITED ORIGINAL US PELVIS NON-OB TRANSABDOMINAL AND TRANSVAGINAL CLINICAL STATEMENT: r/o endometritis. Fever 2 days after . COMPARISON: 11/27/2019 OB US FINDINGS: The uterus measures 17.1 x 9.2 x 16.4 cm cm and has normal echotexture. No myometrial mass is seen. The endometrial double wall thickness is 10 mm. No endometrial emphysema is present. There is a 3.2 x 2.8 x 5.4 cm lesion centered in the proximal uterus anteriorly with some internal vascularity and echogenic linear foci, which likely represents postsurgical change. There is no discrete fluid collection. The right ovary measures 5.5 x 4.7 x 3.3 cm. The left ovary is obscured. There is positive doppler flow to both ovaries. There is no free intraperitoneal fluid. IMPRESSION: No fluid collection or soft tissue emphysema. Normal endometrial thickness. Postsurgical changes in the anterior lower uterus. Normal RIGHT ovary. The LEFT ovary is obscured. I have personally reviewed the images of this examination and agree with the resident's findings and interpretation. Interpreted By: Claude Vergara DO Preliminary Report By: Vinnie Ventura MD Electronically Signed By: Claude Vergara DO Dictated Date: 12/30/2019 11:25:45 PM Prelim Date: 12/30/2019 11:30:55 PM Sign Date: 12/30/2019 11:36:10 PM Ordering Provider:Nikko Urbina [facility] ([place]) .Auto Diffon 12-29-2019 Ammonia (P) [Mass/Vol] 0.80 10 3/mcL Normal 0.15-1.00 [facility] ([place]) Comment on above: Performed By: #### C AMELIA, GFR #### [address] [address] Basophils (Bld) [#/Vol] 0.00 10 3/mcL Normal 0.00-0.19 [facility] ([place]) Comment on above: Performed By: #### C MP, GFR #### [address] [address] Basophils/100 WBC (Bld) 0.2 % Normal 0.0-2.5 [facility] ([place]) Comment on above: Performed By: #### C MP, GFR #### [address] [address] Eosinophils (Bld) [#/Vol] 0.00 10 3/mcL Normal 0.00-0. 40 [facility] ([place]) Comment on above: Performed By: #### C MP, GFR #### [address] [address] Eosinophils/100 WBC (Bld) 0.4 % Normal 0.0-7.0 [facility] ([place] Comment on above: Performed By: #### C MP, GFR #### [address] [address] Lymphocytes (Bld) [#/Vol] 1.20 10 3/mcL Normal 0.77-3. 85 [facility] ([place]) Comment on above: Performed By: #### C MP, GFR #### [address] [address] Lymphocytes/100 WBC (Bld) 13.1 % Normal 10.0-50.0 [facility] ([place] Comment on above: Performed By: #### C MP, GFR #### [address] [address] Monocytes/100 WBC (Bld) 8.3 % Normal 1.7-13.0 [facility] ([place]) Comment on above: Performed By: #### C MP, GFR #### [address] [address] Neutrophils/100 WBC (Bld) 78.0 % Normal 37.0-80.0 [facility] ([place] Comment on above: Performed By: #### C MP, GFR #### [address] [address] .NEUABSon 12-29-2019 Neutrophils (Bld) [#/Vol] 7.10 10 3/mcL High 2.85-6. 16 [facility] ([place]) Comment on above: Performed By: #### C MP, GFR #### [address] [address] CBCon 12-29-2019 Erythrocyte distribution width (RBC) [Ratio] 13.7 % Normal 11.5-14.5 [facility] ([place]) Comment on above: Performed By: #### G LU1P, BMP, GFR #### [address] [address] Hematocrit (Bld) [Volume fraction] 32.2 % Low 37.0-47.0 [facility] ([place] Comment on above: Performed By: #### Jeramie KIM, BMP, GFR #### [place] [phone] Hemoglobin (Bld) [Mass/Vol] 10.9 G/dL Low 12.0-16.0 [facility] ([place] Comment on above: Performed By: #### Jeramie KIM, BMP, GFR #### [place] [phone] MCH (RBC) [Entitic mass] 30.8 pg Normal 27.0-31.2 [facility] ([place] Comment on above: Performed By: #### Jeramie KIM, BMP, GFR #### [place] [phone] MCHC (RBC) [Mass/Vol] 34.0 G/dL Normal 33.0-37.0 [facility] ([place]) Comment on above: Performed By: #### Jeramie KIM, BMP, GFR #### [place] [phone] MCV (RBC) [Entitic vol] 90.7 fL Normal 80.0-94.0 [facility] ([place]) Comment on above: Performed By: #### Jeramie KIM, BMP, GFR #### [place] [phone] Platelet mean volume (Bld) [Entitic vol] 11.6 fL High 7.4-10.4 [facility] ([place] Comment on above: Performed By: #### Jeramie KIM, BMP, GFR #### [place] [phone] Platelets (Bld) [#/Vol] 111 10 3/mcL Low 130-400 [facility] ([place] Comment on above: Performed By: #### Jeramie LU1P, BMP, GFR #### [place] [phone] RBC (Bld) [#/Vol] 3.55 10 6/mcL Low 4.20-5.40 [facility] ([place] Comment on above: Performed By: #### G LU1P, BMP, GFR #### [address] [address] WBC (Bld) [#/Vol] 9.10 10 3/mcL Normal 4.60-10.80 [facility] ([place] Comment on above: Performed By: #### G LU1P, BMP, GFR #### [place] [id number] Gel ABOon 12-28-2019 ABO/Rh Interp Positive [facility] ([place]) Comment on above: Performed By: #### G LU1P, BMP, GFR #### [place] [address] Gel ABSon 12-28-2019 Antibody Screen Gel Negative Normal [facility] ([place]) Comment on above: Performed By: #### G LU1P, BMP, GFR #### [place] [address] .Auto Diffon 12-27-2019 Ammonia (P) [Mass/Vol] 0.70 10 3/mcL Normal 0.15-1.00 [facility] ([place]) Comment on above: Performed By: #### G LU1P, BMP, GFR #### [place] [address] Basophils (Bld) [#/Vol] 0.00 10 3/mcL Normal 0.00-0.19 [facility] ([place] Comment on above: Performed By: #### G LU1P, BMP, GFR #### [place] [address] Basophils/100 WBC (Bld) 0.3 % Normal 0.0-2.5 [facility] ([place] Comment on above: Performed By: #### G LU1P, BMP, GFR #### [place] [address] Eosinophils (Bld) [#/Vol] 0.10 10 3/mcL Normal 0.00-0. 40 [facility] ([place] Comment on above: Performed By: #### G LU1P, BMP, GFR #### [address] [address] Eosinophils/100 WBC (Bld) 0.6 % Normal 0.0-7.0 [facility] ([place] Comment on above: Performed By: #### G LU1P, BMP, GFR #### [address] [address] Lymphocytes (Bld) [#/Vol] 1.50 10 3/mcL Normal 0.77-3. 85 [facility] ([place]) Comment on above: Performed By: #### G LU1P, BMP, GFR #### [address] [address] Lymphocytes/100 WBC (Bld) 16.2 % Normal 10.0-50.0 [facility] ([place] Comment on above: Performed By: #### G LU1P, BMP, GFR #### [address] [address] Monocytes/100 WBC (Bld) 7.9 % Normal 1.7-13.0 [facility] ([place] Comment on above: Performed By: #### G LU1P, BMP, GFR #### [address] [address] Neutrophils/100 WBC (Bld) 75.0 % Normal 37.0-80.0 [facility] ([place] Comment on above: Performed By: #### G LU1P, BMP, GFR #### [address] [address] .NEUABSon 12-27-2019 Neutrophils (Bld) [#/Vol] 6.90 10 3/mcL High 2.85-6. 16 [facility] ([place]) Comment on above: Performed By: #### G LU1P, BMP, GFR #### [address] [address] CBCon 12-27-2019 Erythrocyte distribution width (RBC) [Ratio] 13.3 % Normal 11.5-14.5 [facility] ([place]) Comment on above: Performed By: #### G LU1P, BMP, GFR #### [address] [address] Hematocrit (Bld) [Volume fraction] 38.8 % Normal 37.0-47.0 [facility] ([place] Comment on above: Performed By: #### Jeramie KIM, BMP, GFR #### [place] [phone] Hemoglobin (Bld) [Mass/Vol] 13.3 G/dL Normal 12.0-16.0 [facility] ([place] Comment on above: Performed By: #### Jeramie KIM, BMP, GFR #### [place] [phone] MCH (RBC) [Entitic mass] 30.5 pg Normal 27.0-31.2 [facility] ([place] Comment on above: Performed By: #### Jeramie KIM, BMP, GFR #### [place] [phone] MCHC (RBC) [Mass/Vol] 34.3 G/dL Normal 33.0-37.0 [facility] ([place]) Comment on above: Performed By: #### Jeramie KIM, BMP, GFR #### [place] [phone] MCV (RBC) [Entitic vol] 88.9 fL Normal 80.0-94.0 [facility] ([place]) Comment on above: Performed By: #### Jeramie KIM, BMP, GFR #### [place] [id number] Platelet mean volume (Bld) [Entitic vol] 11.4 fL High 7.4-10.4 [facility] ([place]) Comment on above: Performed By: #### Jeramie LU1P, BMP, GFR #### [place] [phone] Platelets (Bld) [#/Vol] 129 10 3/mcL Low 130-400 [facility] ([place] Comment on above: Performed By: #### Jeramie LU1P, BMP, GFR #### [place] [phone] RBC (Bld) [#/Vol] 4.36 10 6/mcL Normal 4.20-5.40 [facility] ([place]) Comment on above: Performed By: #### Jeramie LU1P, BMP, GFR #### [address] [address] WBC (Bld) [#/Vol] 9.20 10 3/mcL Normal 4.60-10.80 [facility] ([place]) Comment on above: Performed By: #### Jeramie LU1P, BMP, GFR #### [address] [address] .Auto Diffon 12-19-2019 Ammonia (P) [Mass/Vol] 0.60 10 3/mcL Normal 0.15-1.00 [facility] ([place]) Comment on above: Performed By: #### Jeramie LU1P, BMP, GFR #### [address] [address] Basophils (Bld) [#/Vol] 0.00 10 3/mcL Normal 0.00-0.19 [facility] ([place] Comment on above: Performed By: #### Jeramie LU1P, BMP, GFR #### [address] [address] Basophils/100 WBC (Bld) 0.5 % Normal 0.0-2.5 [facility] ([place]) Comment on above: Performed By: #### Jeramie LU1P, BMP, GFR #### [address] [address] Eosinophils (Bld) [#/Vol] 0.00 10 3/mcL Normal 0.00-0. 40 [facility] ([place]) Comment on above: Performed By: #### Jeramie LU1P, BMP, GFR #### [address] [address] Eosinophils/100 WBC (Bld) 0.6 % Normal 0.0-7.0 [facility] ([place] Comment on above: Performed By: #### G LU1P, BMP, GFR #### [address] [address] Lymphocytes (Bld) [#/Vol] 1.20 10 3/mcL Normal 0.77-3. 85 [facility] ([place]) Comment on above: Performed By: #### G LU1P, BMP, GFR #### [address] [address] Lymphocytes/100 WBC (Bld) 14.6 % Normal 10.0-50.0 [facility] ([place] Comment on above: Performed By: #### G LU1P, BMP, GFR #### [address] [address] Monocytes/100 WBC (Bld) 7.4 % Normal 1.7-13.0 [facility] ([place]) Comment on above: Performed By: #### G LU1P, BMP, GFR #### [address] [address] Neutrophils/100 WBC (Bld) 76.9 % Normal 37.0-80.0 [facility] ([place]) Comment on above: Performed By: #### G LU1P, BMP, GFR #### [address] [address] .GFRon 12-19-2019 GFR Non- 122 ml/min/1.73sqm Normal [facility] ([place]) Comment on above: Result Comment: GFR Population mean for , Non- Americans Ages 20-29 = 116 mL/min/1.73 sq.m. Ages 30-39 = 107 mL/min/1.73 sq.m. Ages 40-49 = 99 mL/min/1.73 sq.m. Ages 50-59 = 93 mL/min/1.73 sq.m. Ages 60-69 = 85 mL/min/1.73 sq.m. Ages 70+ = 75 mL/min/1.73 sq.m. Chronic Kidney Disease: Less than 60 mL/min/1.73 square meters End Stage Renal Disease: Less than 15 mL/min/1.73 square meters Performed By: #### G LU1P, BMP, GFR #### [address] [address] GFR 147 ml/min/1.73sqm Normal [facility] ([place]) Comment on above: Result Comment: GFR Population mean for , Non- Americans Ages 20-29 = 116 mL/min/1.73 sq.m. Ages 30-39 = 107 mL/min/1.73 sq.m. Ages 40-49 = 99 mL/min/1.73 sq.m. Ages 50-59 = 93 mL/min/1.73 sq.m. Ages 60-69 = 85 mL/min/1.73 sq.m. Ages 70+ = 75 mL/min/1.73 sq.m. Chronic Kidney Disease: Less than 60 mL/min/1.73 square meters End Stage Renal Disease: Less than 15 mL/min/1.73 square meters Performed By: #### G LU1P, BMP, GFR #### [address] [address] .NEUABSon 12-19-2019 Neutrophils (Bld) [#/Vol] 6.40 10 3/mcL High 2.85-6. 16 [facility] ([place]) Comment on above: Performed By: #### G LU1P, BMP, GFR #### [address] [address] CBCon 12-19-2019 Erythrocyte distribution width (RBC) [Ratio] 13.4 % Normal 11.5-14.5 [facility] ([place]) Comment on above: Performed By: #### G LU1P, BMP, GFR #### [address] [address] Hematocrit (Bld) [Volume fraction] 37.1 % Normal 37.0-47.0 [facility] ([place] Comment on above: Performed By: #### G LU1P, BMP, GFR #### [address] [address] Hemoglobin (Bld) [Mass/Vol] 12.9 G/dL Normal 12.0-16.0 [facility] ([place] Comment on above: Performed By: #### G LU1P, BMP, GFR #### [address] [address] MCH (RBC) [Entitic mass] 30.7 pg Normal 27.0-31.2 [facility] ([place] Comment on above: Performed By: #### G LU1P, BMP, GFR #### [address] [address] MCHC (RBC) [Mass/Vol] 34.6 G/dL Normal 33.0-37.0 [facility] ([place]) Comment on above: Performed By: #### Jeramie LUAlice, BMP, GFR #### [place] [phone] MCV (RBC) [Entitic vol] 88.7 fL Normal 80.0-94.0 [facility] ([place]) Comment on above: Performed By: #### Jeramie LU1P, BMP, GFR #### [place] [phone] Platelet mean volume (Bld) [Entitic vol] 11.4 fL High 7.4-10.4 [facility] ([place]) Comment on above: Performed By: #### Jeramie DE LOS SANTOS1P, BMP, GFR #### [place] [phone] Platelets (Bld) [#/Vol] 128 10 3/mcL Low 130-400 [facility] ([place] Comment on above: Performed By: #### Jeramie LU1P, BMP, GFR #### [place] [address] RBC (Bld) [#/Vol] 4.18 10 6/mcL Low 4.20-5.40 [facility] ([place]) Comment on above: Performed By: #### Jeramie LU1P, BMP, GFR #### [place] [phone] WBC (Bld) [#/Vol] 8.30 10 3/mcL Normal 4.60-10.80 [facility] ([place]) Comment on above: Performed By: #### Jeramie LU1P, BMP, GFR #### [place] [phone] CMPon 12-19-2019 Albumin [Mass/Vol] 2.6 G/dL Low 3.5-5.0 [facility] ([place]) Comment on above: Performed By: #### Jeramie LU1P, BMP, GFR #### [place] [phone] Albumin/Globulin [Mass ratio] 0.7 {ratio} Low 1.1-2.5 [facility] ([place] Comment on above: Performed By: #### Jeramie DE LOS SANTOS1P, BMP, GFR #### [address] [address] ALP [Catalytic activity/Vol] 207 U/L High 40-135 [facility] ([place] Comment on above: Performed By: #### Jeramie LU1P, BMP, GFR #### [address] [address] ALT [Catalytic activity/Vol] 29 U/L Normal 14-59 [facility] ([place] Comment on above: Performed By: #### Jeramie DE LOS SANTOS1P, BMP, GFR #### [address] [address] AST [Catalytic activity/Vol] 28 U/L Normal 10-40 [facility] ([place] Comment on above: Performed By: #### Jeramie DE LOS SANTOS1P, BMP, GFR #### [address] [address] Bili Total 0.3 mg/dL Normal 0.2-1.0 [facility] ([place] Comment on above: Result Comment: Use of this assay is not recommended for patients undergoing treatment with eltrombopag due to the potential for falsely elevated results. Performed By: #### Jeramie KIM, BMP, GFR #### [address] [address] Calcium [Mass/Vol] 8.5 mg/dL Normal 8.4-10.2 [facility] ([place] Comment on above: Performed By: #### Jeramie DE LOS SANTOS1P, BMP, GFR #### [address] [address] Chloride [Moles/Vol] 105 mmol/L Normal 98-107 [facility] ([place] Comment on above: Performed By: #### Jeramie LU1P, BMP, GFR #### [address] [address] CO2 [Moles/Vol] 23 mmol/L Normal 22-29 [facility] ([place]) Comment on above: Performed By: #### Jeramie LU1P, BMP, GFR #### [address] [address] Creatinine [Mass/Vol] 0.61 mg/dL Normal 0.55-1.02 [facility] ([place]) Comment on above: Performed By: #### Jeramie DE LOS SANTOS1P, BMP, GFR #### [address] [address] Electrolyte Balance 10.0 mEq/L Normal [facility] ([place]) Comment on above: Performed By: #### G MAGALI1P, BMP, GFR #### [address] [address] Globulin (S) [Mass/Vol] 3.6 G/dL Normal [facility] ([place]) Comment on above: Performed By: #### Jeramie DE LOS SANTOS1P, BMP, GFR #### [address] [address] Glucose [Mass/Vol] 78 mg/dL Normal 70-105 [facility] ([place]) Comment on above: Performed By: #### Jeramie DE LOS SANTOS1P, BMP, GFR #### [address] [address] Potassium [Moles/Vol] 3.9 mmol/L Normal 3.5-5.1 [facility] ([place]) Comment on above: Performed By: #### Jeramie DE LOS SANTOS1P, BMP, GFR #### [address] [address] Protein [Mass/Vol] 6.2 G/dL Low 6.4-8.2 [facility] ([place]) Comment on above: Performed By: #### Jeramie LU1P, BMP, GFR #### [address] [address] Sodium [Moles/Vol] 138 mmol/L Normal 136-145 [facility] ([place] Comment on above: Performed By: #### Jeramie LU1P, BMP, GFR #### [address] [address] Urea nitrogen [Mass/Vol] 1 mg/dL Low 7-18 [facility] ([place] Comment on above: Performed By: #### Jeramie DE LOS SANTOS1P, BMP, GFR #### [address] [address] Urea nitrogen/Creatinine [Mass ratio] 2 ratio Low 7-27 [facility] ([place] Comment on above: Performed By: #### G LU1P, BMP, GFR #### [address] [address] RPCURon 12-19-2019 Protein [Mass/Vol] 28 mg/dL High 0-11 [facility] ([place] Comment on above: Performed By: #### G LU1P, BMP, GFR #### [address] [address] U Creatinine 49.9 mg/dL Normal 28.0-117.0 [facility] ([place] Comment on above: Performed By: #### G LU1P, BMP, GFR #### [place] [address] U Ratio Prot/Creat 0.6 ratio Normal [facility] ([place]) Comment on above: Result Comment: resu lt calculated by rule GL_UR_PROT_NOTCALC_OLD (U Protein/U Creatinine) Performed By: #### G LU1P, BMP, GFR #### [place] [address] URICon 12-19-2019 Uric Acid Lvl 3.4 mg/dL Normal 2.6-6.2 [facility] ([place] Comment on above: Performed By: #### G LU1P, BMP, GFR #### [place] [address] MISCMon 12-03-2019 MISCM . MICRO - Microbiology PROCEDURE: Miscellaneous Micro [O1 *1] SOURCE: Vaginal Rectal BODY SITE: COLLECTED DATE/TIME: 11/28/2019 15:57 EDT RECEIVED DATE/TIME: 11/29/2019 14:12 EDT START DATE/TIME: 11/29/2019 14:14 EDT FREE TEXT SOURCE: FINAL REPORTS Final Report [] Verified Date/Time/Personnel: 12/03/2019 13:15 EDT Complete reference lab report scanned to EMR. Order Comments O1: Miscellaneous Micro GBS BY PCR Performing Locations *1: This test was performed at: [address] [place], [address]- , [place] Normal [facility] ([place] Comment on above: Performed By: #### G LU1P, BMP, GFR #### [address] [address] HGMPon 11-28-2019 Erythrocyte distribution width (RBC) [Ratio] 12.9 % Normal 11.5-14.5 [facility] ([place] Comment on above: Performed By: #### G LU1P, BMP, GFR #### [address] [address] Hematocrit (Bld) [Volume fraction] 37.9 % Normal 37.0-47.0 [facility] ([place] Comment on above: Performed By: #### G LU1P, BMP, GFR #### [address] [address] Hemoglobin (Bld) [Mass/Vol] 12.9 G/dL Normal 12.0-16.0 [facility] ([place] Comment on above: Performed By: #### Jeramie LU1P, BMP, GFR #### [address] [address] MCH (RBC) [Entitic mass] 30.4 pg Normal 27.0-31.2 [facility] ([place] Comment on above: Performed By: #### G LU1P, BMP, GFR #### [address] [address] MCHC (RBC) [Mass/Vol] 34.1 G/dL Normal 33.0-37.0 [facility] ([place]) Comment on above: Performed By: #### G LU1P, BMP, GFR #### [address] [address] MCV (RBC) [Entitic vol] 89.1 fL Normal 80.0-94.0 [facility] ([place]) Comment on above: Performed By: #### G LU1P, BMP, GFR #### [address] [address] Platelet mean volume (Bld) [Entitic vol] 11.7 fL High 7.4-10.4 [facility] ([place] Comment on above: Performed By: #### G LU1P, BMP, GFR #### [place] [address] Platelets (Bld) [#/Vol] 147 10 3/mcL Normal 130-400 [facility] ([place] Comment on above: Performed By: #### G LU1P, BMP, GFR #### [place] [phone] RBC (Bld) [#/Vol] 4.25 10 6/mcL Normal 4.20-5.40 [facility] ([place] Comment on above: Performed By: #### G LU1P, BMP, GFR #### [place] [phone] WBC (Bld) [#/Vol] 10.30 10 3/mcL Normal 4.60-10.80 [facility] ([place]) Comment on above: Performed By: #### G LU1P, BMP, GFR #### [place] [address] HHon 10-31-2019 Hematocrit (Bld) [Volume fraction] 37.0 % Normal 37.0-47.0 [facility] ([place] Comment on above: Performed By: #### G LU1P, BMP, GFR #### [place] [address] Hemoglobin (Bld) [Mass/Vol] 12.8 G/dL Normal 12.0-16.0 [facility] ([place] Comment on above: Performed By: #### G LU1P, BMP, GFR #### [place] [address] PLTon 10-31-2019 Platelets (Bld) [#/Vol] 134 10 3/mcL Normal 130-400 [facility] ([place] Comment on above: Performed By: #### G LU1P, BMP, GFR #### [place] [address] .GFRon 09-26-2019 GFR 147 ml/min/1.73sqm Normal [facility] ([place] Comment on above: Result Comment: GFR Population mean for , Non- Americans Ages 20-29 = 116 mL/min/1.73 sq.m. Ages 30-39 = 107 mL/min/1.73 sq.m. Ages 40-49 = 99 mL/min/1.73 sq.m. Ages 50-59 = 93 mL/min/1.73 sq.m. Ages 60-69 = 85 mL/min/1.73 sq.m. Ages 70+ = 75 mL/min/1.73 sq.m. Chronic Kidney Disease: Less than 60 mL/min/1.73 square meters End Stage Renal Disease: Less than 15 mL/min/1.73 square meters Performed By: #### G LU1P, BMP, GFR #### [address] [address] GFR Non- 122 ml/min/1.73sqm Normal [facility] ([place]) Comment on above: Result Comment: GFR Population mean for , Non- Americans Ages 20-29 = 116 mL/min/1.73 sq.m. Ages 30-39 = 107 mL/min/1.73 sq.m. Ages 40-49 = 99 mL/min/1.73 sq.m. Ages 50-59 = 93 mL/min/1.73 sq.m. Ages 60-69 = 85 mL/min/1.73 sq.m. Ages 70+ = 75 mL/min/1.73 sq.m. Chronic Kidney Disease: Less than 60 mL/min/1.73 square meters End Stage Renal Disease: Less than 15 mL/min/1.73 square meters Performed By: #### G LU1P, BMP, GFR #### [address] [address] .Urinalysis Microscopic (AO) on 09-26-2019 RBC (U) [#/Vol] None Seen Normal None Seen [facility] ([place] Comment on above: Performed By: #### G LU1P, BMP, GFR #### [address] [address] UA Squam Epithelial 0-5 Abnormal None Seen [facility] ([place]) Comment on above: Performed By: #### G LU1P, BMP, GFR #### [address] [address] UA WBC 0-5 Abnormal None Seen [facility] ([place] Comment on above: Performed By: #### G LU1P, BMP, GFR #### [address] [address] CMPon 09-26-2019 Albumin [Mass/Vol] 3.2 G/dL Low 3.5-5.0 [facility] ([place]) Comment on above: Performed By: #### H GMP, URIC, CMP, GFR #### [address] [address] Albumin/Globulin [Mass ratio] 0.9 {ratio} Low 1.1-2.5 [facility] ([place] Comment on above: Performed By: #### H GMP, URIC, CMP, GFR #### [address] [address] ALP [Catalytic activity/Vol] 90 U/L Normal 40-135 [facility] ([place] Comment on above: Performed By: #### H GMP, URIC, CMP, GFR #### [address] [address] ALT [Catalytic activity/Vol] 17 U/L Normal 10-35 [facility] ([place] Comment on above: Performed By: #### H GMP, URIC, CMP, GFR #### [address] [address] AST [Catalytic activity/Vol] 15 U/L Normal 10-40 [facility] ([place]) Comment on above: Performed By: #### H GMP, URIC, CMP, GFR #### [address] [address] Bili Total 0.2 mg/dL Normal 0.2-1.0 [facility] ([place] Comment on above: Result Comment: Use of this assay is not recommended for patients undergoing treatment with eltrombopag due to the potential for falsely elevated results. Performed By: #### H GMP, URIC, CMP, GFR #### [address] [address] Calcium [Mass/Vol] 9.3 mg/dL Normal 8.4-10.2 [facility] ([place] Comment on above: Performed By: #### H GMP, URIC, CMP, GFR #### [address] [address] Chloride [Moles/Vol] 103 mmol/L Normal 98-107 [facility] ([place]) Comment on above: Performed By: #### H GMP, URIC, CMP, GFR #### [address] [address] CO2 [Moles/Vol] 24 mmol/L Normal 22-29 [facility] ([place] Comment on above: Performed By: #### H GMP, URIC, CMP, GFR #### [address] [address] Creatinine [Mass/Vol] 0.61 mg/dL Normal 0.55-1.02 [facility] ([place]) Comment on above: Performed By: #### H GMP, URIC, CMP, GFR #### [address] [address] Electrolyte Balance 12.0 mEq/L Normal [facility] ([place]) Comment on above: Performed By: #### H GMP, URIC, CMP, GFR #### [address] [address] Globulin (S) [Mass/Vol] 3.6 G/dL Normal [facility] ([place] Comment on above: Performed By: #### H GMP, URIC, CMP, GFR #### [address] [address] Glucose [Mass/Vol] 76 mg/dL Normal 70-105 [facility] ([place] Comment on above: Performed By: #### H GMP, URIC, CMP, GFR #### [address] [address] Potassium [Moles/Vol] 3.7 mmol/L Normal 3.5-5.1 [facility] ([place]) Comment on above: Performed By: #### H GMP, URIC, CMP, GFR #### [address] [address] Protein [Mass/Vol] 6.8 G/dL Normal 6.4-8.2 [facility] ([place] Comment on above: Performed By: #### H GMP, URIC, CMP, GFR #### [address] [address] Sodium [Moles/Vol] 139 mmol/L Normal 136-145 [facility] ([place] Comment on above: Performed By: #### H GMP, URIC, CMP, GFR #### [address] [address] Urea nitrogen [Mass/Vol] 3 mg/dL Low 7-18 [facility] ([place] Comment on above: Performed By: #### H GMP, URIC, CMP, GFR #### [address] [address] Urea nitrogen/Creatinine [Mass ratio] 5 ratio Low 7-27 [facility] ([place] Comment on above: Performed By: #### H GMP, URIC, CMP, GFR #### [address] [address] HGMPon 09-26-2019 Erythrocyte distribution width (RBC) [Ratio] 12.7 % Normal 11.5-14.5 [facility] ([place] Comment on above: Performed By: #### H GMP, URIC, CMP, GFR #### [address] [address] Hematocrit (Bld) [Volume fraction] 38.8 % Normal 37.0-47.0 [facility] ([place] Comment on above: Performed By: #### H GMP, URIC, CMP, GFR #### [address] [address] Hemoglobin (Bld) [Mass/Vol] 13.1 G/dL Normal 12.0-16.0 [facility] ([place] Comment on above: Performed By: #### H GMP, URIC, CMP, GFR #### [address] [address] MCH (RBC) [Entitic mass] 30.6 pg Normal 27.0-31.2 [facility] ([place] Comment on above: Performed By: #### H GMP, URIC, CMP, GFR #### [address] [address] MCHC (RBC) [Mass/Vol] 33.9 G/dL Normal 33.0-37.0 [facility] ([place]) Comment on above: Performed By: #### H GMP, URIC, CMP, GFR #### [address] [address] MCV (RBC) [Entitic vol] 90.3 fL Normal 80.0-94.0 [facility] ([place]) Comment on above: Performed By: #### H GMP, URIC, CMP, GFR #### [address] [address] Platelet mean volume (Bld) [Entitic vol] 11.7 fL High 7.4-10.4 [facility] ([place] Comment on above: Performed By: #### H GMP, URIC, CMP, GFR #### [address] [address] Platelets (Bld) [#/Vol] 139 10 3/mcL Normal 130-400 [facility] ([place] Comment on above: Performed By: #### H GMP, URIC, CMP, GFR #### [address] [address] RBC (Bld) [#/Vol] 4.29 10 6/mcL Normal 4.20-5.40 [facility] ([place] Comment on above: Performed By: #### H GMP, URIC, CMP, GFR #### [address] [address] WBC (Bld) [#/Vol] 8.40 10 3/mcL Normal 4.60-10.80 [facility] ([place] Comment on above: Performed By: #### H GMP, URIC, CMP, GFR #### [address] [address] UAon 07-08-2020 Color (U) Yellow Normal [facility] ([place] Comment on above: Performed By: #### G LU1P, BMP, GFR #### [place] [address] Glucose (U) [Mass/Vol] Negative Normal Negative [facility] ([place]) Comment on above: Performed By: #### G LU1P, BMP, GFR #### [place] [address] Ketones Ql (U) Negative Normal Negative [facility] ([place] Comment on above: Performed By: #### G LU1P, BMP, GFR #### [place] [address] UA Appear Clear Normal Clear [facility] ([place] Comment on above: Performed By: #### G LU1P, BMP, GFR #### [address] [address] UA Blood Negative Normal Negative [facility] ([place] Comment on above: Performed By: #### G LU1P, BMP, GFR #### [place] [address] UA Leuk Est Small Abnormal Negative [facility] ([place] Comment on above: Performed By: #### G LU1P, BMP, GFR #### [address] [address] UA Nitrite Negative Normal Negative [facility] ([place] Comment on above: Performed By: #### G LU1P, BMP, GFR #### [place] [address] UA pH 7.0 Normal 5.0 - 8.0 [facility] ([place] Comment on above: Performed By: #### G LU1P, BMP, GFR #### [place] [phone] UA Protein Negative Normal Negative [facility] ([place] Comment on above: Performed By: #### G LU1P, BMP, GFR #### [place] [address] UA Spec Grav 1.020 Normal 1.015-1.025 [facility] ([place]) Comment on above: Performed By: #### G LU1P, BMP, GFR #### [facility] [address] [place] [address] UA Specimen Type Not Given Normal [facility] ([place] Comment on above: Performed By: #### G LU1P, BMP, GFR #### [facility] [address] [place] [address] UA Urobilinogen 0.2 E.U./dL Normal 0.2-1.0 [facility] ([place]) Comment on above: Performed By: #### G LU1P, BMP, GFR #### [facility] [address] [place] [address] Urobilinogen Qn (U) Negative Normal Negative [facility] ([place]) Comment on above: Performed By: #### G LU1P, BMP, GFR #### [address] [address] URICon 09-26-2019 Uric Acid Lvl 2.9 mg/dL Normal 2.6-6.2 [facility] ([place]) Comment on above: Performed By: #### H GMP, URIC, CMP, GFR #### [address] [address] BILEon 09-20-2019 Cholesterol [Mass/Vol] 1.6 mg/dL Normal [facility] ([place]) Comment on above: Order Comment: Test delay notice sent from [facility] 09/19/19 anticiapted date of completion is 09/24/19 Result Comment: Refe rence range: 0.0 to 2.5 Unit: umol/L Performed By: #### H GMP, BILE #### [address] [address] Cholesterol [Mass/Vol] 0.3 mg/dL Normal [facility] ([place]) Comment on above: Order Comment: Test delay notice sent from [facility] 09/19/19 anticiapted date of completion is 09/24/19 Result Comment: Refe rence range: 0.0 to 1.0 Unit: umol/L Performed By: #### H GMP, BILE #### [address] [address] Cholesterol [Mass/Vol] 0.9 mg/dL Normal [facility] ([place]) Comment on above: Order Comment: Test delay notice sent from [facility] 09/19/19 anticiapted date of completion is 09/24/19 Result Comment: Refe rence range: 0.0 to 3.4 Unit: umol/L Performed By: #### H GMP, BILE #### Jeni [address] [address] Cholesterol [Mass/Vol] 1.1 mg/dL Normal [facility] ([place]) Comment on above: Order Comment: Test delay notice sent from [facility] 09/19/19 anticiapted date of completion is 09/24/19 Result Comment: Refe rence range: 0.0 to 1.9 Unit: umol/L Performed By: #### H GMP, BILE #### Jeni [address] [address] Total Bile Acids 3.9 Normal [facility] ([place] Comment on above: Order Comment: Test delay notice sent from [facility] 09/19/19 anticiapted date of completion is 09/24/19 Result Comment: Refe rence range: 0.0 to 7.0 Unit: umol/L (NOTE) INTERPRETIVE INFORMATION: Bile Acids, Fractionated and Total Test developed and characteristics determined by [facility]. See Compliance Statement B: [employer]/CS Performed by [facility], [address] [place] [id number] [email or web address], Paul Cruz MD, Lab. Director Performed By: #### H GMP, BILE #### Jeni [address] [address] [facility] 09-12-2019 Erythrocyte distribution width (RBC) [Ratio] 12.6 % Normal 11.5-14.5 [facility] ([place] Comment on above: Performed By: #### H GMP, BILE #### Jeni [address] [address] Hematocrit (Bld) [Volume fraction] 38.7 % Normal 37.0-47.0 [facility] ([place] Comment on above: Performed By: #### H GMP, BILE #### [address] [address] Hemoglobin (Bld) [Mass/Vol] 13.1 G/dL Normal 12.0-16.0 [facility] ([place] Comment on above: Performed By: #### H GMP, BILE #### [address] [address] MCH (RBC) [Entitic mass] 30.7 pg Normal 27.0-31.2 [facility] ([place] Comment on above: Performed By: #### H GMP, BILE #### [address] [address] MCHC (RBC) [Mass/Vol] 33.8 G/dL Normal 33.0-37.0 [facility] ([place]) Comment on above: Performed By: #### H GMP, BILE #### [address] [address] MCV (RBC) [Entitic vol] 90.8 fL Normal 80.0-94.0 [facility] ([place] Comment on above: Performed By: #### H GMP, BILE #### [address] [address] Platelet mean volume (Bld) [Entitic vol] 11.8 fL High 7.4-10.4 [facility] ([place] Comment on above: Performed By: #### H GMP, BILE #### [address] [address] Platelets (Bld) [#/Vol] 137 10 3/mcL Normal 130-400 [facility] ([place] Comment on above: Performed By: #### H GMP, BILE #### [address] [address] RBC (Bld) [#/Vol] 4.26 10 6/mcL Normal 4.20-5.40 [facility] ([place] Comment on above: Performed By: #### H GMP, BILE #### [address] [address] WBC (Bld) [#/Vol] 8.30 10 3/mcL Normal 4.60-10.80 [facility] ([place] Comment on above: Performed By: #### H GMP, BILE #### Jeni [address] [address] .GFRon 07-11-2019 GFR Non- 129 ml/min/1.73sqm Normal [facility] ([place] Comment on above: Result Comment: GFR Population mean for , Non- Americans Ages 20-29 = 116 mL/min/1.73 sq.m. Ages 30-39 = 107 mL/min/1.73 sq.m. Ages 40-49 = 99 mL/min/1.73 sq.m. Ages 50-59 = 93 mL/min/1.73 sq.m. Ages 60-69 = 85 mL/min/1.73 sq.m. Ages 70+ = 75 mL/min/1.73 sq.m. Chronic Kidney Disease: Less than 60 mL/min/1.73 square meters End Stage Renal Disease: Less than 15 mL/min/1.73 square meters Performed By: #### C MP, GFR #### [address] [address] GFR 156 ml/min/1.73sqm Normal [facility] ([place]) Comment on above: Result Comment: GFR Population mean for , Non- Americans Ages 20-29 = 116 mL/min/1.73 sq.m. Ages 30-39 = 107 mL/min/1.73 sq.m. Ages 40-49 = 99 mL/min/1.73 sq.m. Ages 50-59 = 93 mL/min/1.73 sq.m. Ages 60-69 = 85 mL/min/1.73 sq.m. Ages 70+ = 75 mL/min/1.73 sq.m. Chronic Kidney Disease: Less than 60 mL/min/1.73 square meters End Stage Renal Disease: Less than 15 mL/min/1.73 square meters Performed By: #### C MP, GFR #### [address] [address] CMPon 07-11-2019 Albumin [Mass/Vol] 3.3 G/dL Low 3.5-5.0 [facility] ([place] Comment on above: Performed By: #### C MP, GFR #### [address] [address] Albumin/Globulin [Mass ratio] 0.9 {ratio} Low 1.1-2.5 [facility] ([place] Comment on above: Performed By: #### C MP, GFR #### [address] [address] ALP [Catalytic activity/Vol] 67 U/L Normal 40-135 [facility] ([place] Comment on above: Performed By: #### C MP, GFR #### [address] [address] ALT [Catalytic activity/Vol] 21 U/L Normal 10-35 [facility] ([place]) Comment on above: Performed By: #### C MP, GFR #### [address] [address] AST [Catalytic activity/Vol] 16 U/L Normal 10-40 [facility] ([place] Comment on above: Performed By: #### C MP, GFR #### [address] [address] Bili Total 0.3 mg/dL Normal 0.2-1.0 [facility] ([place]) Comment on above: Result Comment: Use of this assay is not recommended for patients undergoing treatment with eltrombopag due to the potential for falsely elevated results. Performed By: #### C MP, GFR #### [address] [address] Calcium [Mass/Vol] 9.4 mg/dL Normal 8.4-10.2 [facility] ([place]) Comment on above: Performed By: #### C MP, GFR #### [address] [address] Chloride [Moles/Vol] 102 mmol/L Normal 98-107 [facility] ([place]) Comment on above: Performed By: #### C MP, GFR #### [address] [address] CO2 [Moles/Vol] 26 mmol/L Normal 22-29 [facility] ([place]) Comment on above: Performed By: #### C MP, GFR #### [address] [address] Creatinine [Mass/Vol] 0.58 mg/dL Normal 0.55-1.02 [facility] ([place]) Comment on above: Performed By: #### C MP, GFR #### [address] [address] Electrolyte Balance 10.0 mEq/L Normal [facility] ([place]) Comment on above: Performed By: #### C MP, GFR #### [address] [address] Globulin (S) [Mass/Vol] 3.7 G/dL Normal [facility] ([place]) Comment on above: Performed By: #### C MP, GFR #### [address] [address] Glucose [Mass/Vol] 81 mg/dL Normal 70-105 [facility] ([place]) Comment on above: Performed By: #### C MP, GFR #### [address] [address] Potassium [Moles/Vol] 3.6 mmol/L Normal 3.5-5.1 [facility] ([place]) Comment on above: Performed By: #### C MP, GFR #### [address] [address] Protein [Mass/Vol] 7.0 G/dL Normal 6.4-8.2 [facility] ([place] Comment on above: Performed By: #### C MP, GFR #### [address] [address] Sodium [Moles/Vol] 138 mmol/L Normal 136-145 [facility] ([place]) Comment on above: Performed By: #### C MP, GFR #### [address] [address] Urea nitrogen [Mass/Vol] 3 mg/dL Low 7-18 [facility] ([place] Comment on above: Performed By: #### C MP, GFR #### Jeni [address] [address] Urea nitrogen/Creatinine [Mass ratio] 5 ratio Low 7-27 [facility] ([place] Comment on above: Performed By: #### C MP, GFR #### [address] [id number] [place], [place] [address] .GFRon 06-20-2019 GFR 114 ml/min/1.73sqm Normal [facility] ([place]) Comment on above: Result Comment: GFR Population mean for , Non- Americans Ages 20-29 = 116 mL/min/1.73 sq.m. Ages 30-39 = 107 mL/min/1.73 sq.m. Ages 40-49 = 99 mL/min/1.73 sq.m. Ages 50-59 = 93 mL/min/1.73 sq.m. Ages 60-69 = 85 mL/min/1.73 sq.m. Ages 70+ = 75 mL/min/1.73 sq.m. Chronic Kidney Disease: Less than 60 mL/min/1.73 square meters End Stage Renal Disease: Less than 15 mL/min/1.73 square meters Performed By: #### G LU1P, BMP, GFR #### [address] [address] GFR Non- 94 ml/min/1.73sqm Normal [facility] ([place]) Comment on above: Result Comment: GFR Population mean for , Non- Americans Ages 20-29 = 116 mL/min/1.73 sq.m. Ages 30-39 = 107 mL/min/1.73 sq.m. Ages 40-49 = 99 mL/min/1.73 sq.m. Ages 50-59 = 93 mL/min/1.73 sq.m. Ages 60-69 = 85 mL/min/1.73 sq.m. Ages 70+ = 75 mL/min/1.73 sq.m. Chronic Kidney Disease: Less than 60 mL/min/1.73 square meters End Stage Renal Disease: Less than 15 mL/min/1.73 square meters Performed By: #### G LU1P, BMP, GFR #### [address] [address] BMPon 06-20-2019 Calcium [Mass/Vol] 8.7 mg/dL Normal 8.4-10.2 [facility] ([place]) Comment on above: Performed By: #### Jeramie DE LOS SANTOS1P, BMP, GFR #### [place] [id number] Chloride [Moles/Vol] 102 mmol/L Normal 98-107 [facility] ([place]) Comment on above: Performed By: #### Jeramie DE LOS SANTOS1P, BMP, GFR #### [place] [id number] CO2 [Moles/Vol] 25 mmol/L Normal 22-29 [facility] ([place] Comment on above: Performed By: #### Jeramie DE LOS SANTOS1P, BMP, GFR #### [place] [address] Creatinine [Mass/Vol] 0.76 mg/dL Normal 0.55-1.02 [facility] ([place]) Comment on above: Performed By: #### Jeramie DE LOS SANTOS1P, BMP, GFR #### [place] [address] Electrolyte Balance 9.0 mEq/L Normal [facility] ([place]) Comment on above: Performed By: #### Jeramie DE LOS SANTOS1P, BMP, GFR #### [place] [id number] Glucose [Mass/Vol] 185 mg/dL High 70-140 [facility] ([place] Comment on above: Performed By: #### G LU1P, BMP, GFR #### [address] [address] Potassium [Moles/Vol] 3.4 mmol/L Low 3.5-5.1 [facility] ([place]) Comment on above: Performed By: #### Jeramie LU1P, BMP, GFR #### [place] [id number] Sodium [Moles/Vol] 136 mmol/L Normal 136-145 [facility] ([place]) Comment on above: Performed By: #### G LU1P, BMP, GFR #### [facility] [address] [place] [address] Urea nitrogen [Mass/Vol] 3 mg/dL Low 10-05 [facility] ([place] Comment on above: Performed By: #### G LU1P, BMP, GFR #### [facility] [address] [place] [address] Urea nitrogen/Creatinine [Mass ratio] 4 ratio Low 10-14 [facility] ([place] Comment on above: Performed By: #### G LU1P, BMP, GFR #### [facility] [address] [place] [address] Vital Signs Date Time Vital Sign Value Performing Clinician Karely alex 05-09-2023 00:06-0500 Body temperature 98.2 [degF] [facility] 05-09-2023 00:06-0500 Diastolic blood pressure 76 mm[Hg] [facility] 05-09-2023 00:06-0500 Heart rate 99 /min [facility] 05-09-2023 00:06-0500 Respiratory rate 26 /min [facility] 05-09-2023 00:06-0500 SaO2% (BldA) [Mass fraction] 95 % [facility] 05-09-2023 00:06-0500 Systolic blood pressure 112 mm[Hg] [facility] 05-08-2023 21:54-0500 Body mass index (BMI) [Ratio] 34.3 kg/m2 [facility] 05-08-2023 21:54-0500 Body weight 90.71 kg [facility] 05-08-2023 21:39-0500 Body height 162.56 cm [facility] Encounters Encounter Date Encounter Type Care Provider Facility Start: 08-22-2024 End: 08-[facility] Start: 07-26-2024 End: 07-26-2024 ambulatory Danitza Miedel [facility] Start: 06-13-2024 End: 06-13-2024 ambulatory [facility] Start: 02-01-2024 End: 02-01-2024 ambulatory [facility] Start: 12-20-2023 End: 12-20-2023 ambulatory [facility] Start: 11-07-2023 End: 11-07-2023 ambulatory [facility] Start: 11-06-2023 End: 11-06-2023 Emergency department patient visit Ashvin Trujillo Facility:[facility] Start: 09-29-2023 Encounter for genera l adult medical [facility] Start: 09-26-2023 End: 09-26-2023 ambulatory [facility] Start: 09-19-2023 End: 09-19-2023 ambulatory [facility] Facility:[facility] Start: 05-08-2023 End: 05-09-2023 Emergency department patient visit [facility] Work Phone: Start: 11-18-2022 End: 11-18-2022 ambulatory [facility] Work Phone: Start: 11-18-2022 End: 11-18-2022 Patient encounter procedure [facility] [place] Work Phone: Procedures Date Procedure Procedure Detail Performing Clinician Start: 05-08-2023 Plain chest X-ray Start: 05-08-2023 SARS-CoV-2, Influenz a & RSV (PCR) Start: 11-18-2022 Bacterial nucleic acid assay Start: 11-18-2022 Chlamydia trachomatis (PCR) Plan of Treatment Date Care Activity Detail Author Start: 05-08-2023 [facility] Start: 05-08-2023 [facility] Start: 05-08-2023 End: 05-08-2023 Blood culture [facility] Start: 05-08-2023 Bacteria identified in Blood by Culture Blood Culture [facility] Bacteria identified in Urine by Culture [facility] Patient Education ED Fever Contr ol (Adult) ED Influenza (Adult) [facility] Work Phone: Patient referral [facility] Work Phone: Payers Date Payer Category Payer Self-pay [id number] 2023 Unknown [id number] Medicaid MEDICAID [id number] Unknown [id number] Unknown [id number] 2.16.8 [id number] Unknown [id number] 2.16.8 [id number] Unknown [id number] 2.16.8 [id number] Unknown [id number] 2.16.8 [id number] Unknown [id number] 2.16.8 [id number] Unknown [id number] 2.16.8 [id number] Unknown [id number] 2.16.8 [id number] Unknown [id number] 2.16.8 [id number] Unknown [id number] 2.16.8 [id number] Unknown [id number] 2.16.8 [id number] Unknown [id number] 2.16.8 [id number] Social History Date Type Detail [facility] Work Phone: Start: 1995 Sex Assigned At Female [facility] Start: 05-08-2023 [facility] Mental Status Date Assessment Result Facility 05-08-2023 Cognitive function Level Of Cons ciousness Awake;Alert;Appropriate;Follow s Commands [facility] Work Phone: Progress note 05-18-2021 Note Date & Type Note Facility 05-18-2021 Note HNO ID: [id number] Author: Nisha Valdez APRN.[employer] Service: ? Author Type: Nurse Practitioner Type: [...] medication for this at home. She did paula the spot with a pen so she [...] (KETO-DIASTIX) strp 1 Strip four times daily. Ielycwre-Uf-Agn-Fe-[id number] tab Take 1 tablet by mouth once daily. With folic acid and DHA as covered by Insurance acetaminophen (TYLENOL) 325 mg cap Take by mouth. FAMILY HISTORY Problem Relation Age of Onset - Heart Father [place] - Heart Other paternal side - Cancer [...] expected course of illness Nisha Valdez APRN.MIKE [facility] Evaluation note Note Date & Type Note Facility Evaluation note No assessment information availa [facility] Work Phone: Summary Purpose Family History No Family History Records FoundNo Family History Records FoundNo Family History Records Found Advance Directives No Advanced Directives Records Found Advance Directive Response Recorded Date/ Time Living Will No May 08 9:55pm Power of Care Aid No May 08, 2023 9:55pm Chief Complaint and Reason for Visit Chief Complaint fever Additional Source Comments INFORMATION SOURCE (unrecogn ized section and content) DATE CREATED AUTHOR 01/08/[address] [facility] ([place]) DATE CREATED AUTHOR 'S ORGANIZ ATION 05/19/[address] [facility] DATE CREATED AUTHOR AUTHOR'S ORGANIZ ATION 08/29/2024 [facility] Care Teams (unrecognized sec tion and content) Team Status: Active Member Role Status Dates Dr. Tan Swan MD Family Provider Active Dr. Danitza Allred MD Primary Care Provider Active Team Status: Inactive Member Role Status Dates Dr. Danitza Allred MD Primary Care Provider, Ivelissein g Provider Active Team Status: Inactive Member Role Status Dates Dr. Danitza Allred MD Primary Care Provider Active Dr. Silvio Trujillo , Emergency Provider Active Goals (unrecognized section and content) Goals may be documented in a n alternate sectionGoals may be documented in an alternate section FOR RECORDS PERTAINING TO PATIENTS WHO ARE [...] BE BASED ON THE PRIMARY CLINICAL RECORDS. [employer] provides no warranty or guarantee of the accuracy or completeness of information in this document.
--- OUTSIDE RECORDS SUMMARY | 2024-10-22 22:58 | XMS RPT_ITS | CCD ---
Author Organization [facility] Inform ion [facility] Care Team Providers Care Nuclear Engineer Name Role Phone Mied, Danitza Primary Care [...] Primary Care Unavailable Dallas Andersonon Attending Unavailable [facility], Danitza Primary Care Unavailable Beronica Anderson Attending Unavailable [facility], Danitza Primary Care Unavailable Medications Current Medications [...] Office Visit Reporton 2024 Office Visit Report [facility] [address] [place] [address] OFFICE VISIT Date of Service: 08/22/24 MR#: [id number] Acct: [id number] Patient: RICHA HERNANDEZ Rep #: [id number] : 1995 Provider: JAQUELINE Bhakta Age/Sex: 29/F Location: [facility] Status: Signed Intake Vital Signs 07/26/24 14:00 Height 5 ft 4 in Weight: 202 lb BMI 34.7 BP 120/82 H Blood Pressure Location Lt brachial Position Sitting Respiration 16 Pulse 91 Pulse Source Monitor Intake Visit Reasons: PE/QUANT/FIT TEST/[facility] Allergies No Known Allergies Allergy (Verified 07/26/24 14:04) Office Procedures [facility] Billing Sheet Testing Pre-Employment PE: Yes Respirator Fit Testing: Yes Occquant-Quantiferon : Yes Assessment and Plan Assessment and Plan Orders: Orders Quantiferon TB-Gold+ 08/22/24 Z02.1 - Encounter for pre-employment examination 08/28/24824 Date Chaim Shaffer Signature: Date (if applicable) CC: Normal [facility] Quantiferon TB-Gold+on 08-24 QFT MITOGEN ADRIANNE > 10.00 Normal . [facility] Comment on above: Performed By: #### L 3400.8000 #### [facility] [address] [place], [address] QFT NIL VALUE 0.01 IU/mL Normal . [facility] Comment on above: Performed By: #### L 3400.8000 #### [facility] [address] [place], [address] QFT TB GOLD+ Comment Normal . [facility] Comment on above: Result Comment: Alonzo tiFERON-TB [...] test. Performed By: #### L 3400.8000 #### [facility] [address] [place], [place], [address] QFT TB POS CRIT Negative Normal Negative [facility] Comment on above: Result Comment: No r [...] interferon gamma. Chemiluminescence immunoassay methodology Performed at: [facility] [employer] [id number] [employer]: Uvaldo Phillips PhD, Phone: [phone] Performed By: #### L 3400.8000 #### [facility] [address] [facility] [address] QFT TB1+ AG ADRIANNE 0.02 IU/mL Normal . [facility] Comment on above: Performed By: #### L 3400.8000 #### [facility] [address] [facility] [address] QFT TB2+ AG ADRIANNE 0.02 IU/mL Normal . [facility] Comment on above: Performed By: #### L 3400.8000 #### [facility] [address] [place], [address] Urgent Care Visit Reporton 0 08-22-2024 Urgent Care Visit Report [facility] [address], [address] [place] [id number] OFFICE VISIT Date of Service: 08/22/24 MR#: [id number] Acct: [id number] Name: RICHA HERNANDEZ Rep #: [id number] : 1995 Provider: JAQUELINE Bhakta Age/Sex: 29/F Location: [facility] Status: Signed Intake Vital Signs 07/26/24 14:00 Height 5 ft 4 in Weight: 202 lb BMI 34.7 BP 120/82 H Blood Pressure Location Lt brachial Position Sitting Respiration 16 Pulse 91 Pulse Source Monitor Intake Visit Reasons: PE/NON DOT/PHYSICAL/[facility] Allergies No Known Allergies Allergy (Verified 07/26/24 14:04) [facility] Medical History (Updated 08/22/24 @ 15:03 [...] Yes Coding Level of Care Code Attention 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 Is planning a trip to [place] this weekend. Denies SI/HI. Does struggle with [...] Code(s): F32.A (more content not included)... Normal [facility] MR/BMS.BPon 02-01-2024 MR/BMS. [facility] [address] [place] [address], [address] [place] [id number] OFFICE VISIT Date of Service: 02/01/24 MR#: [id number] Acct: [id number] Name: RICHA HERNANDEZ Rep #: [id number] : 1995 Provider: ROBERTO brooks Age/Sex: 28/F Location: [facility] Status: Signed Intake Vital Signs 12/20/23 10:22 [...] think it is going to be beneficial. Martin she was doing well enough but in [...] oriented x3 (more content not included)... Normal [facility] MR/BMS.BPon 12-20-2023 MR/BMS.BP [facility] [address], [address] [place] [address] OFFICE VISIT Date of Service: 12/20/23 MR#: [id number] Acct: [id number] Name: RICHA HERNANDEZ Rep #: [id number] : 1995 Provider: ROBERTO brooks Age/Sex: 28/F Location: [facility] Status: Signed Intake Vital Signs 11/07/23 14:17 [...] up evaluation. Did start her position at [employer] and ended up leaving after 2 weeks due to feeling like she was not being treated well. Is working at [employer] now and has been for about 2 [...] good Exam (more content not included)... Normal [facility] MR/BMS.BPon 11-07-2023 MR/BMS.BP [facility], [address] [place] [address] OFFICE VISIT Date of Service: 11/07/23 MR#: [id number] Acct: [id number] Name: RICHA HERNANDEZ Rep #: [id number] : 1995 Provider: ROBERTO brooks Age/Sex: 28/F Location: [facility] Status: Signed Intake Vital Signs 09/26/23 14:32 11/06/23 05:41 11/07/23 14:05 11/07/23 14:17 Height 5 ft 4 in 5 ft 4 in 5 ft 4 in 5 ft 4 in BP 123/86 H Blood Pressure Location Rt brachial Position Sitting Pulse 99 Pulse Source Monitor BP Intake Visit Reasons: 6 wk FU Blunger Required: No Accompanied by: Self Is patient [...] is docum (more content not included)... Normal [facility] CBC W/Diff, Automatedon - Absolute Lymph 2.25 X10 3/uL Normal 0.83-4.51 [facility] Comment on above: Performed By: #### L 100.0100, L500.4050 #### [facility] [address] [place], [address] Absolute Neut 4.9 X10 3/uL Normal 2.0-7.7 [facility] Comment on above: Performed By: #### L 100.0100, L500.4050 #### [facility] [address] [place], [address] Basophils/100 WBC (Bld) 0.4 % Normal 0-1 [facility] Comment on above: Performed By: #### L 100.0100, L500.4050 #### [facility] [address] [place], [address] Eosinophils/100 WBC (Bld) 2.1 % Normal 0-5 [facility] Comment on above: Performed By: #### L 100.0100, L500.4050 #### [facility] [address] [place], [address] Erythrocyte distribution width (RBC) [Ratio] 11.7 % Normal 11.6-14.6 [facility] Comment on above: Performed By: #### L 100.0100, L500.4050 #### [facility] [address] [place], [address] Hematocrit (Bld) [Volume fraction] 41.2 % Normal 37-47 [facility] Comment on above: Performed By: #### L 100.0100, L500.4050 #### [facility] [address] [place], [address] Hemoglobin (Bld) [Mass/Vol] 13.7 g/dL Normal 12.0-15.0 [facility] Comment on above: Performed By: #### L 100.0100, L500.4050 #### [facility] [address] [place], [address] IG% 0.100 Normal 0.0-0.9 [facility] Comment on above: Result Comment: IG% - Immature Granulocytes (promyelocytes, myelocytes and metamyelocytes) > 1% indicates that a LEFT SHIFT is Present. Performed By: #### L 100.0100, L500.4050 #### [facility] [address] [place], [address] Lymphocytes/100 WBC (Bld) 28.3 % Normal 19-41 [facility] Comment on above: Performed By: #### L 100.0100, L500.4050 #### [facility] [address] [place], [address] MCH (RBC) [Entitic mass] 28.5 pg Normal 27.0-32.0 [facility] Comment on above: Performed By: #### L 100.0100, L500.4050 #### [facility] [address] [place], [address] MCHC (RBC) [Mass/Vol] 33.3 g/dL Normal 32-36 [facility] Comment on above: Performed By: #### L 100.0100, L500.4050 #### [facility] [address] [place], [address] MCV (RBC) [Entitic vol] 85.7 fL Normal 81-99 [facility] Comment on above: Performed By: #### L 100.0100, L500.4050 #### [facility] [address] [place], [address] Monocytes/100 WBC (Bld) 7.4 % Normal 0-10 [facility] Comment on above: Performed By: #### L 100.0100, L500.4050 #### [facility] [address] [place], [address] Neutrophils/100 WBC (Bld) 61.7 % Normal 47-70 [facility] Comment on above: Performed By: #### L 100.0100, L500.4050 #### [facility] [address] [place], [address] Nucleated RBC (Bld) [#/Vol] 0 10*3/uL Normal 0-5 [facility] Comment on above: Performed By: #### L 100.0100, L500.4050 #### [facility] [address] [place], [address] Platelet mean volume (Bld) [Entitic vol] 13.0 fL High 6.2-12.0 [facility] Comment on above: Performed By: #### L 100.0100, L500.4050 #### [facility] [address] [place], [address] Platelets (Bld) [#/Vol] 162 10*3/uL Normal 150-450 [facility] Comment on above: Performed By: #### L 100.0100, L500.4050 #### [facility] [address] [place], [address] RBC (Bld) [#/Vol] 4.81 10*6/uL Normal 4.2-5.4 [facility] Comment on above: Performed By: #### L 100.0100, L500.4050 #### [facility] [address] [place], [address] RDW SD 36.2 fl Normal 35.1-43.9 [facility] Comment on above: Performed By: #### L 100.0100, L500.4050 #### [facility] [address] [place], [address] WBC (Bld) [#/Vol] 8.0 10*3/uL Normal 4.4-11.0 [facility] Comment on above: Performed By: #### L 100.0100, L500.4050 #### [facility] [address] [place], [address] Comprehensive Metabolic [facility] 11-06-2023 Albumin [Mass/Vol] 3.1 g/dL Low 3.2-5.0 [facility] Comment on above: Performed By: #### L 100.0100, L500.4050 #### [facility] [address] [place], [address] Albumin/Globulin [Mass ratio] 0.8 {ratio} Low 0.9-2.4 [facility] Comment on above: Performed By: #### L 100.0100, L500.4050 #### [facility] [address] [place], [address] ALK P 63 U/L Normal 45-117 [facility] Comment on above: Performed By: #### L 100.0100, L500.4050 #### [facility] [address] [place], [address] ALT [Catalytic activity/Vol] 26 U/L Normal 13-56 [facility] Comment on above: Performed By: #### L 100.0100, L500.4050 #### [facility] [address] [place], [address] AST [Catalytic activity/Vol] 18 U/L Normal 15-37 [facility] Comment on above: Performed By: #### L 100.0100, L500.4050 #### [facility] [address] [place], [address] Bilirubin [Mass/Vol] 0.30 mg/dL Normal 0.20-1.00 [facility] Comment on above: Result Comment: For patients on eltrombopag therapy, use of Dimension Sutter TBIL is not recommended. Performed By: #### L 100.0100, L500.4050 #### [facility] [address] [place], [address] BUN/CRE 9.9 RATIO Low 10-20 [facility] Comment on above: Performed By: #### L 100.0100, L500.4050 #### [facility] [address] [place], [address] CA,Total 8.9 mg/dL Normal 8.5-10.1 [facility] Comment on above: Performed By: #### L 100.0100, L500.4050 #### [facility] [address] [place], [address] Chloride [Moles/Vol] 106 mmol/L Normal 98-107 [facility] Comment on above: Performed By: #### L 100.0100, L500.4050 #### [facility] [address] [place], [address] CO2 [Moles/Vol] 26.0 mmol/L Normal 21.0-32.0 [facility] Comment on above: Performed By: #### L 100.0100, L500.4050 #### [facility] [address] [place], [address] Creatinine [Mass/Vol] 0.91 mg/dL Normal 0.55-1.02 [facility] Comment on above: Result Comment: The validity of the calculated GFR GFRAA in patients over 70 years has not been determined. Clinical correlation is essential. Performed By: #### L 100.0100, L500.4050 #### [facility] [address] [place], [address] ECRCL 102.12 ml/min Normal [facility] Comment on above: Performed By: #### L 100.0100, L500.4050 #### [facility] [address] [place], [address] EST GFR - AA 95 mL/min Normal >60 [facility] Comment on above: Result Comment: Afri can Faroese GFR Calc Performed By: #### L 100.0100, L500.4050 #### [facility] [address] [place], [address] GAP 6 Normal 5-15 [facility] Comment on above: Performed By: #### L 100.0100, L500.4050 #### [facility] [address] [place], [address] GFR/1.73 sq M.predicted among non-blacks MDRD (S/P/Bld) [Vol rate/Area] 79 mL/min/{1.73_m2} Normal >60 [facility] Comment on above: Result Comment: Non- GFR Calc Performed By: #### L 100.0100, L500.4050 #### [facility] [address] [place], [address] Globulin (S) [Mass/Vol] 3.8 g/dL Normal 2.2-4.2 [facility] Comment on above: Performed By: #### L 100.0100, L500.4050 #### [facility] [address] [place], [address] Glucose [Mass/Vol] 110 mg/dL High 74-106 [facility] Comment on above: Result Comment: Fast ing Glucose result from 100 to 125 mg/dL suggests IMPAIRED HOMEOSTASIS per A.D.A. criteria. Performed By: #### L 100.0100, L500.4050 #### [facility] [address] [place], [address] Potassium [Moles/Vol] 3.5 mmol/L Normal 3.5-5.1 [facility] Comment on above: Performed By: #### L 100.0100, L500.4050 #### [facility] [address] [place], [address] Sodium [Moles/Vol] 138 mmol/L Normal 136-145 [facility] Comment on above: Performed By: #### L 100.0100, L500.4050 #### [facility] [address] [place], [address] T PROT 6.9 g/dL Normal 6.4-8.2 [facility] Comment on above: Performed By: #### L 100.0100, L500.4050 #### [facility] [address] [place], [address] Urea nitrogen [Mass/Vol] 9 mg/dL Normal 7-18 [facility] Comment on above: Performed By: #### L 100.0100, L500.4050 #### [facility] [address] [place], [address] Emergency Department Summary on 11-06-2023 Emergency Department Summary [facility] Medical Records Department [address] [place] [address] Emergency Department Summary 11/06/23 MR#: [id number] Acct: [id number] Name: RICHA HERNANDEZ Rep #: [id number] : 1995 28 From: Ashvin Trujillo MD [...] meat or fish. No known sick contacts. [facility] Medical History Anxiety Ear infection URI [...] liver enzy (more content not included)... Normal [facility] MR/BMS.BPon 09-26-2023 MR/BMS.BP [facility] [address] [place] [address], [address] [place] [address] OFFICE VISIT Date of Service: 09/26/23 MR#: [id number] Acct: [id number] Name: RICHA HERNANDEZ Rep #: [id number] : 1995 Provider: ROBERTO brooks Age/Sex: 28/F Location: [facility] Status: Signed Intake Vital Signs 05/08/23 21:39 [...] affect her sleep. Interest: Feels life didn't bucket turner how I wanted it to. Can find [...] child. 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 Normal [facility] Comprehensive Metabolic Prof ilon 09-19-2023 Albumin [Mass/Vol] 3.2 g/dL Normal 3.2-5.0 [facility] Comment on above: Performed By: #### L 503.6550, L500.4050, L503.6150, L501.9985, L506.1000, L503.0105 #### [facility] [address] [place], [address] Albumin/Globulin [Mass ratio] 0.8 {ratio} Low 0.9-2.4 [facility] Comment on above: Performed By: #### L 503.6550, L500.4050, L503.6150, L501.9985, L506.1000, L503.0105 #### [facility] [address] [place], [address] ALK P 66 U/L Normal 45-117 [facility] Comment on above: Performed By: #### L 503.6550, L500.4050, L503.6150, L501.9985, L506.1000, L503.0105 #### [facility] [address] [place], [address] ALT [Catalytic activity/Vol] 31 U/L Normal 13-56 [facility] Comment on above: Performed By: #### L 503.6550, L500.4050, L503.6150, L501.9985, L506.1000, L503.0105 #### [facility] [address] [place], [address] AST [Catalytic activity/Vol] 14 U/L Low 15-37 [facility] Comment on above: Performed By: #### L 503.6550, L500.4050, L503.6150, L501.9985, L506.1000, L503.0105 #### [facility] [address] [place], [address] Bilirubin [Mass/Vol] 0.30 mg/dL Normal 0.20-1.00 [facility] Comment on above: Result Comment: For patients on eltrombopag therapy, use of Dimension Sutter TBIL is not recommended. Performed By: #### L 503.6550, L500.4050, L503.6150, L501.9985, L506.1000, L503.0105 #### [facility] [address] [place], [address] BUN/CRE 7.8 RATIO Low 10-20 [facility] Comment on above: Performed By: #### L 503.6550, L500.4050, L503.6150, L501.9985, L506.1000, L503.0105 #### [facility] [address] [place], [address] CA,Total 9.0 mg/dL Normal 8.5-10.1 [facility] Comment on above: Performed By: #### L 503.6550, L500.4050, L503.6150, L501.9985, L506.1000, L503.0105 #### [facility] [address] [place], [address] Chloride [Moles/Vol] 107 mmol/L Normal 98-107 [facility] Comment on above: Performed By: #### L 503.6550, L500.4050, L503.6150, L501.9985, L506.1000, L503.0105 #### [facility] [address] [place], [address] CO2 [Moles/Vol] 24.0 mmol/L Normal 21.0-32.0 [facility] Comment on above: Performed By: #### L 503.6550, L500.4050, L503.6150, L501.9985, L506.1000, L503.0105 #### [facility] [address] [place], [address] Creatinine [Mass/Vol] 0.89 mg/dL Normal 0.55-1.02 [facility] Comment on above: Result Comment: The validity of the calculated GFR GFRAA in patients over 70 years has not been determined. Clinical correlation is essential. Performed By: #### L 503.6550, L500.4050, L503.6150, L501.9985, L506.1000, L503.0105 #### [facility] [address] [place], [address] EST GFR - AA 97 mL/min Normal >60 [facility] Comment on above: Result Comment: Afri can Faroese GFR Calc Performed By: #### L 503.6550, L500.4050, L503.6150, L501.9985, L506.1000, L503.0105 #### [facility] [address] [place], [address] GAP 6 Normal 5-15 [facility] Comment on above: Performed By: #### L 503.6550, L500.4050, L503.6150, L501.9985, L506.1000, L503.0105 #### [facility] [address] [place], [address] GFR/1.73 sq M.predicted among non-blacks MDRD (S/P/Bld) [Vol rate/Area] 81 mL/min/{1.73_m2} Normal >60 [facility] Comment on above: Result Comment: Non- GFR Calc Performed By: #### L 503.6550, L500.4050, L503.6150, L501.9985, L506.1000, L503.0105 #### [facility] [address] [place], [address] Globulin (S) [Mass/Vol] 4.2 g/dL Normal 2.2-4.2 [facility] Comment on above: Performed By: #### L 503.6550, L500.4050, L503.6150, L501.9985, L506.1000, L503.0105 #### [facility] [address] [place], [address] Glucose [Mass/Vol] 149 mg/dL High 74-106 [facility] Comment on above: Result Comment: Fast ing Glucose result greater than or equal to 126 mg/dL suggests DIABETES MELLITUS per A.D.A. criteria. Performed By: #### L 503.6550, L500.4050, L503.6150, L501.9985, L506.1000, L503.0105 #### [facility] [address] [place], [address] Potassium [Moles/Vol] 3.5 mmol/L Normal 3.5-5.1 [facility] Comment on above: Performed By: #### L 503.6550, L500.4050, L503.6150, L501.9985, L506.1000, L503.0105 #### [facility] [address] [place], [address] Sodium [Moles/Vol] 137 mmol/L Normal 136-145 [facility] Comment on above: Performed By: #### L 503.6550, L500.4050, L503.6150, L501.9985, L506.1000, L503.0105 #### [facility] [address] [place], [address] T PROT 7.4 g/dL Normal 6.4-8.2 [facility] Comment on above: Performed By: #### L 503.6550, L500.4050, L503.6150, L501.9985, L506.1000, L503.0105 #### [facility] [address] [place], [address] Urea nitrogen [Mass/Vol] 7 mg/dL Normal 7-18 [facility] Comment on above: Performed By: #### L 503.6550, L500.4050, L503.6150, L501.9985, L506.1000, L503.0105 #### [facility] [address] [place], [address] Ferritinon 09-19-2023 Ferritin [Mass/Vol] 6 ng/mL Low 8-252 [facility] Comment on above: Performed By: #### L 503.6550, L500.4050, L503.6150, L501.9985, L506.1000, L503.0105 #### [facility] [address] [place], [address] Hemoglobin A1con 09-19-2023 HbA1c (Bld) [Mass fraction] 4.8 % Normal 3.8-5.6 [facility] Comment on above: Result Comment: Norm al < 5.7 % Prediabetic 5.7 - 6.4 % Diabetic >or= 6.5 % Please note range changes. Performed By: #### L 503.6550, L500.4050, L503.6150, L501.9985, L506.1000, L503.0105 #### [facility] [address] [place], [address] Ironon 09-19-2023 Iron [Mass/Vol] 39 ug/dL Low 50-170 [facility] Comment on above: Performed By: #### L 503.6550, L500.4050, L503.6150, L501.9985, L506.1000, L503.0105 #### [facility] [address] [place], [address] Vitamin B12on 09-19-2023 Cobalamin (Vitamin B12) [Mass/Vol] 405 pg/mL Normal 211-911 [facility] Comment on above: Performed By: #### L 503.6550, L500.4050, L503.6150, L501.9985, L506.1000, L503.0105 #### [facility] [address] [place], [address] Vitamin D,25 Hydroxyon 09-18 Vitamin D 25-OH 11.8 ng/mL Normal [facility] Comment on above: Result Comment: Lauren min D 25(OH) Status Range Deficiency <20 ng/mL (50nmol/L) Insufficiency 20 - 30 ng/mL (50 - 75 nmol/L) Sufficiency 30 - 100 ng/mL (75 - 250 nmol/L) Toxicity >100 ng/mL (>250 nmol/L) Performed By: #### L 503.6550, L500.4050, L503.6150, L501.9985, L506.1000, L503.0105 ####[facility] [id number] [place], [address] Absolute lymphocyte countOrd ered By: Silvio rTujillo on 05-08-2023 Lymphocytes Auto (Unsp spec) [#/Vol] 0.46 10*3/uL 0.83-4.51 [facility] Activated partial thrombopla stin time (aPTT) in platelet poor plasma by coagulation aOrdered By: Silvio Trujillo on 05-08-2023 aPTT Coag (PPP) [Time] 28.1 s 24.1-36.2 [facility] Amorphous sediment detection in urine sediment by light microscopyOrdered By: Silvio Trujillo on 05-08-2023 Amorphous sediment LM Ql (Urine sed) 1+ PHOS [facility] Automated lymphocyte count a s percentage of total leukocytesOrdered By: Silvio Trujillo on 05-08-2023 Lymphocytes/100 WBC Auto (Unsp spec) 9.3 % 19-41 [facility] Basophil percentageOrdered B y: Silvio Trujillo on 05-08-2023 Basophil percentage 0 SEEN /hpf 0-5 [facility] Basophils/100 WBC (Bld) 0.4 % 0-1 [facility] Chloride [Moles/Vol] 107 mmol/L 98-107 [facility] Eosinophils/100 WBC (Bld) 0.6 % 0-5 [facility] Glucose [Mass/Vol] 105 mg/dL 74-106 [facility] Comment on above: Fasting Glucose resu lt from 100 to 125 mg/dL suggests IMPAIRED HOMEOSTASIS per A.D.A. criteria. Hemoglobin (Bld) [Mass/Vol] 13.5 g/dL 12.0-15.0 [facility] Lactate [Moles/Vol] 1.3 mmol/L 0.4-2.0 [facility] Monocytes/100 WBC (Bld) 16.9 % 0-10 [facility] Neutrophils (Bld) [#/Vol] 3.6 10*3/uL 2.0-7.7 [facility] Neutrophils/100 WBC (Bld) 72.6 % 47-70 [facility] Potassium [Moles/Vol] 3.6 mmol/L 3.5-5.1 [facility] Sodium [Moles/Vol] 136 mmol/L 136-145 [facility] WBC (Bld) [#/Vol] 5.0 10*3/uL 4.4-11.0 [facility] Bilirubin Test strip Ql (U)O rdered By: Silvio Trujillo on 05-08-2023 Bilirubin Ql (U) Negative Negative [facility] Determination of erythrocyte mean corpuscular volume (MCV)Ordered By: Silvio Trujillo on 05-08-2023 MCV (RBC) [Entitic vol] 84.8 fL 81-99 [facility] Erythrocyte distribution wid th ratioOrdered By: Silvio Trujillo on 05-08-2023 Erythrocyte distribution width (RBC) [Ratio] 12.0 % 11.6-14.6 [facility] Erythrocyte distribution wid th standard deviationOrdered By: Silvio Trujillo on 05-08-2023 Erythrocyte distribution width (RBC) [Entitic vol] 37.1 fL 35.1-43.9 [facility] Hematocrit Auto (Bld) [Volum e fraction]Ordered By: Silvio Trujillo on 05-08-2023 Hematocrit (Bld) [Volume fraction] 40.8 % 37-47 [facility] Immature granulocytes/100 WB C Auto (Bld)Ordered By: Silvio Trujillo on 05-08-2023 Immature granulocytes/100 WBC (Bld) 0.200 % 0.0-0.9 [facility] Comment on above: IG% - Immature Granu locytes (promyelocytes, myelocytes and metamyelocytes) > 1% indicates that a LEFT SHIFT is Present. Ketones Test strip Ql (U)Ord ered By: Silvio Trujillo on 05-08-2023 Ketones Ql (U) Negative Negative [facility] - Chemistry and C hemistry - challengeOrdered By: Silvio Trujillo on 05-08-2023 CO2 [Moles/Vol] 24.0 mmol/L 21.0-32.0 [facility] Urea nitrogen/Creatinine [Mass ratio] 9.7 mg/mg 10-20 [facility] - CoagulationOrde red By: Silvio Trujillo on 05-08-2023 INR Coag (Bld) [Relative time] 1.1 {INR} [facility] PT Coag (PPP) [Time] 13.8 s 11.7-14.9 [facility] Laboratory - Hematology and Cell countsOrdered By: Silvio Trujillo on 05-08-2023 MCH (RBC) [Entitic mass] 28.1 pg 27.0-32.0 [facility] MCHC (RBC) [Mass/Vol] 33.1 g/dL 32-36 [facility] Nucleated RBC/100 WBC (Bld) [Ratio] 0 % 0-5 [facility] Platelet mean volume (Bld) [Entitic vol] 13.5 fL 6.2-12.0 [facility] Platelets (Bld) [#/Vol] 140 10*3/uL 150-450 [facility] - Microbiology an d Antimicrobial susceptibilityOrdered By: Silvio Trujillo on 05-08-2023 SARS-CoV-2 (COVID-19) RNA STEPHANIE+probe Ql (Unsp spec) Influenzae A [facility] Mucus LM Ql (Urine sed)Order ed By: Silvio Trujillo on 05-08-2023 Mucus Ql (Urine sed) 0 SEEN /hpf [facility] Nitrite Test strip Ql (U)Ord ered By: Silvio Trujillo on 05-08-2023 Nitrite Ql (U) Negative Negative [facility] No Panel InformationOrdered By: Silvio Trujillo on 05-08-2023 Urine RBC 0 SEEN /hpf 0-5 [facility] Estimated Creatinine Clearance Calc 100.01 ml/min [facility] Estimated GFR (MDRD) Amer 94 mL/min >60 [facility] Comment on above: GFR Calc Estimated GFR (MDRD) Non-Af Amer 77 mL/min >60 [facility] Comment on above: Non- GFR Calc Protein Test strip Ql (U)Ord ered By: Silvio Trujillo on 05-08-2023 Protein Ql (U) Negative Negative [facility] RBC Auto (Bld) [#/Vol]Ordere d By: Silvio Trujillo on 05-08-2023 RBC (Bld) [#/Vol] 4.81 10*6/uL 4.2-5.4 [facility] Serum or plasma calcium boo urement (mass/volume)Ordered By: Silvio Trujillo on 05-08-2023 Calcium [Mass/Vol] 9.1 mg/dL 8.5-10.1 [facility] Serum or plasma creatinine m easurement (mass/volume)Ordered By: Silvio Trujillo on 05-08-2023 Creatinine [Mass/Vol] 0.93 mg/dL 0.55-1.02 [facility] Comment on above: The validity of the calculated GFR & GFRAA in patients over 70 years has not been determined. Clinical correlation is essential. Serum or plasma urea nitroge n measurement (mass/volume)Ordered By: Silvio Trujillo on 05-08-2023 Urea nitrogen [Mass/Vol] 9 mg/dL 7-18 [facility] Squamous epithelial cells de tection in urine sediment by light microscopyOrdered By: Silvio Trujillo on 05-08-2023 Epithelial cells.squamous LM Ql (Urine sed) 5-10 SEEN /hpf 5-10 [facility] Thin prep Papanicolaou smear with manual screeningOrdered By: Silvio Trujillo on 05-08-2023 Thin prep Papanicolaou smear with manual screening 5 5-15 [facility] Urine blood detectionOrdered By: Silvio Trujillo on 05-08-2023 RBC Ql (U) Negative Negative [facility] Urine clarityOrdered By: Mirtha Trujillo on 05-08-2023 Clarity (U) Sl. Cloudy Clear [facility] Urine color determinationOrd ered By: Silvio Trujillo on 05-08-2023 Color (U) Yellow Yellow [facility] Urine glucose detectionOrder ed By: Silvio Trujillo on 05-08-2023 Glucose Ql (U) Normal mg/dl Normal [facility] Urine leukocyte esterase det ection by dipstickOrdered By: Silvio Trujillo on 05-08-2023 Leukocyte esterase Test strip Ql (U) Negative Negative [facility] Urine pHOrdered By: Silvio melendrez on 05-08-2023 pH (U) 8.0 [pH] 5.0 - 8.0 [facility] Urine sediment bacteria coun t by microscopy (number/high power field)Ordered By: Silvio Trujillo on 05-08-2023 Bacteria LM.HPF (Urine sed) [#/Area] 0 /[HPF] None Seen [facility] Urine specific gravity measu rementOrdered By: Silvio Trujillo on 05-08-2023 Specific gravity (U) [Rel density] 1.010 1.002-1.030 [facility] Urine urobilinogen measureme ntOrdered By: Silvio Trujillo on 05-08-2023 Urobilinogen Ql (U) Normal mg/dl Normal [facility] Absolute lymphocyte countOrd ered By: Danitza Allred on 11-18-2022 Lymphocytes Auto (Unsp spec) [#/Vol] 1.67 10*3/uL 0.83-4.51 [facility] Basophil percentageOrdered B y: Danitza Allred on 11-18-2022 Basophils/100 WBC (Bld) 0.5 % 0-1 [facility] Bilirubin [Mass/Vol] 0.40 mg/dL 0.20-1.00 [facility] Comment on above: For patients on eltr ombopag therapy, use of Dimension Sutter TBIL is not recommended. Chloride [Moles/Vol] 107 mmol/L 98-107 [facility] Eosinophils/100 WBC (Bld) 2.3 % 0-5 [facility] Glucose [Mass/Vol] 122 mg/dL 74-106 [facility] Comment on above: Fasting Glucose resu lt from 100 to 125 mg/dL suggests IMPAIRED HOMEOSTASIS per A.D.A. criteria. Neutrophils (Bld) [#/Vol] 5.7 10*3/uL 2.0-7.7 [facility] Neutrophils/100 WBC (Bld) 69.2 % 47-70 [facility] Potassium [Moles/Vol] 3.9 mmol/L 3.5-5.1 [facility] Protein [Mass/Vol] 7.7 g/dL 6.4-8.2 [facility] Sodium [Moles/Vol] 137 mmol/L 136-145 [facility] WBC (Bld) [#/Vol] 8.2 10*3/uL 4.4-11.0 [facility] Blood erythrocytes count (nu mber/volume)Ordered By: Danitza Allred on 11-18-2022 RBC (Bld) [#/Vol] 5.02 10*6/uL 4.2-5.4 [facility] Blood hemoglobin measurement (mass/volume)Ordered By: Danitza Allred on 11-18-2022 Hemoglobin (Bld) [Mass/Vol] 14.4 g/dL 12.0-15.0 [facility] Blood lymphocytes/100 leukoc ytesOrdered By: Danitza Allred on 11-18-2022 Lymphocytes/100 WBC (Bld) 20.4 % 19-41 [facility] Blood monocytes/100 leukocyt esOrdered By: Danitza Allred on 11-18-2022 Monocytes/100 WBC (Bld) 7.4 % 0-10 [facility] Blood platelet mean volumeOr dered By: Danitza Allred on 11-18-2022 Platelet mean volume (Bld) [Entitic vol] 13.4 fL 6.2-12.0 [facility] Determination of erythrocyte mean corpuscular volume (MCV)Ordered By: Danitza Allred on 11-18-2022 MCV (RBC) [Entitic vol] 87.6 fL 81-99 [facility] Hematocrit Auto (Bld) [Volum e fraction]Ordered By: Danitza Miana on 11-18-2022 Hematocrit (Bld) [Volume fraction] 44.0 % 37-47 [facility] - Chemistry and C hemistry - challengeOrdered By: Danitza Allred on 11-18-2022 ALP [Catalytic activity/Vol] 88 U/L 45-117 [facility] ALT [Catalytic activity/Vol] 91 U/L 13-56 [facility] CO2 [Moles/Vol] 24.0 mmol/L 21.0-32.0 [facility] Globulin (S) [Mass/Vol] 4.0 g/dL 2.2-4.2 [facility] Urea nitrogen/Creatinine [Mass ratio] 13.5 mg/mg 10-20 [facility] - Hematology and Cell countsOrdered By: Danitza Allred on 11-18-2022 Erythrocyte distribution width (RBC) [Entitic vol] 38.5 fL 35.1-43.9 [facility] Erythrocyte distribution width (RBC) [Ratio] 12.0 % 11.6-14.6 [facility] Immature granulocytes/100 WBC (Bld) 0.200 % 0.0-0.9 [facility] Comment on above: IG% - Immature Granu locytes (promyelocytes, myelocytes and metamyelocytes) > 1% indicates that a LEFT SHIFT is Present. MCH (RBC) [Entitic mass] 28.7 pg 27.0-32.0 [facility] Nucleated RBC/100 WBC (Bld) [Ratio] 0 % 0-5 [facility] MCHC Auto (RBC) [Mass/Vol]Or dered By: Danitza Allred on 11-18-2022 MCHC (RBC) [Mass/Vol] 32.7 g/dL 32-36 [facility] Neisseria gonorrhoeae genita l PCROrdered By: Danitza Allred on 11-18-2022 N. gonorrhoeae DNA STEPHANIE+probe Ql (Genital specimen) [facility] No Panel InformationOrdered By: Danitza Allred on 11-18-2022 Chlamydia trachomatis (PCR) [facility] Estimated GFR (MDRD) Amer 90 mL/min >60 [facility] Comment on above: GFR Calc Estimated GFR (MDRD) Non-Af Amer 74 mL/min >60 [facility] Comment on above: Non- GFR Calc Platelets bldOrdered By: Jonny Allred on 11-18-2022 Platelets (Bld) [#/Vol] 197 10*3/uL 150-450 [facility] Serum or plasma albumin boo urement (mass/volume)Ordered By: Danitza Allred on 11-18-2022 Albumin [Mass/Vol] 3.7 g/dL 3.2-5.0 [facility] Serum or plasma albumin/glob ulin mass ratioOrdered By: Danitza Allred on 11-18-2022 Albumin/Globulin [Mass ratio] 0.9 {ratio} 0.9-2.4 [facility] Serum or plasma calcium boo urement (mass/volume)Ordered By: Danitza Allred on 11-18-2022 Calcium [Mass/Vol] 9.2 mg/dL 8.5-10.1 [facility] Serum or plasma creatinine m easurement (mass/volume)Ordered By: Danitza Allred on 11-18-2022 Creatinine [Mass/Vol] 0.96 mg/dL 0.55-1.02 [facility] Comment on above: The validity of the calculated GFR & GFRAA in patients over 70 years has not been determined. Clinical correlation is essential. Serum or plasma urea nitroge n measurement (mass/volume)Ordered By: Danitza Allred on 11-18-2022 Urea nitrogen [Mass/Vol] 13 mg/dL 7-18 [facility] Thin prep Papanicolaou smear with manual screeningOrdered By: Danitza Allred on 11-18-2022 Thin prep Papanicolaou smear with manual screening 48 U/L 15-37 [facility] Thin prep Papanicolaou smear with manual screening 6 5-15 [facility] CNOVon 05-18-2021 CNOV Office Visit (UCWSTR) RICHA HERNANDEZ ([id number]) 1995 F Date Time Provider Department 05/18/21 3:30 PM NISHA VALDEZ [facility] During your visit today, we [...] itching, you can take diphenhydramine (Benadryl), an myzh-acf-vdwzlsa medication. Adults may need 50 or 75 mg, and children may need two or three times the child's dose printed on the bottle. Often, brown spots remain after the bumps heal. This is just a temporary color change, and scarring generally does not occur except when bites become infected. Nisha Valdez APRN.SAND TECHNICIAN 05/18/2021 3:53 PM Signed Subjective HPI Richa [...] four times (more content not included)... Normal [facility] 01-02-2020 [facility] . MICRO - Microbiology PROCEDURE: Urine Culture [...] Locations *1: This test was performed at: [facility], [address] [place] [address], [facility] , [facility] Normal [facility] ([place]) Comment on above: Performed By: #### C MP, GFR #### [address] [address] .Auto Diffon 12-31-2019 Ammonia (P) [Mass/Vol] 0.50 10 3/mcL Normal 0.15-1.00 [facility] ([place]) Comment on above: Performed By: #### C MP, GFR #### [address] [address] Basophils (Bld) [#/Vol] 0.00 10 3/mcL Normal 0.00-0.19 [facility] ([place]) Comment on above: Performed By: #### C MP, GFR #### [address] [address] Basophils/100 WBC (Bld) 0.2 % Normal 0.0-2.5 [facility] ([place]) Comment on above: Performed By: #### C MP, GFR #### [address] [address] Eosinophils (Bld) [#/Vol] 0.10 10 3/mcL Normal 0.00-0. 40 [facility] ([place]) Comment on above: Performed By: #### C MP, GFR #### [address] [address] Eosinophils/100 WBC (Bld) 1.5 % Normal 0.0-7.0 [facility] ([place]) Comment on above: Performed By: #### C MP, GFR #### [address] [address] Lymphocytes (Bld) [#/Vol] 0.90 10 3/mcL Normal 0.77-3. 85 [facility] ([place]) Comment on above: Performed By: #### C MP, GFR #### [address] [address] Lymphocytes/100 WBC (Bld) 10.2 % Normal 10.0-50.0 [facility] ([place]) Comment on above: Performed By: #### C MP, GFR #### [address] [place] [id number] [place], [place] [address] Monocytes/100 WBC (Bld) 5.6 % Normal 1.7-13.0 [facility] ([place]) Comment on above: Performed By: #### C MP, GFR #### [id number] [place], [place] [address] Neutrophils/100 WBC (Bld) 82.5 % High 37.0-80.0 [facility] ([place]) Comment on above: Performed By: #### C MP, GFR #### Jeni [address] [address] .GFRon 12-31-2019 GFR 113 ml/min/1.73sqm Normal [facility] ([place]) Comment on above: Result Comment: GFR [...] Performed By: #### C MP, GFR #### [place] [id number] [place], [place] [address] GFR Non- 93 ml/min/1.73sqm Normal [facility] ([place]) Comment on above: Result Comment: GFR [...] Performed By: #### C MP, GFR #### [place] [address] .NEUABSon 12-31-2019 Neutrophils (Bld) [#/Vol] 7.20 10 3/mcL High 2.85-6. 16 [facility] ([place]) Comment on above: Performed By: #### C MP, GFR #### Jeni [address] [address] .Urinalysis Microscopic (AO) on 12-31-2019 RBC (U) [#/Vol] LOADED Abnormal None Seen [facility] ([place] Comment on above: Performed By: #### C MP, GFR #### [address] [address] UA Bacteria Trace Abnormal [facility] ([place]) Comment on above: Performed By: #### C MP, GFR #### [place] [id number] UA Mucous 1+ /hpf Normal [facility] ([place]) Comment on above: Performed By: #### C MP, GFR #### [place] [id number] UA Squam Epithelial 0-5 Abnormal None Seen [facility] ([place]) Comment on above: Performed By: #### C MP, GFR #### [place] [address] UA WBC 5-10 Abnormal None Seen [facility] ([place]) Comment on above: Performed By: #### C MP, GFR #### [address] [address] CBCon 12-31-2019 Erythrocyte distribution width (RBC) [Ratio] 13.2 % Normal 11.5-14.5 [facility] ([place]) Comment on above: Performed By: #### C MP, GFR #### [address] [address] Hematocrit (Bld) [Volume fraction] 36.1 % Low 37.0-47.0 [facility] ([place]) Comment on above: Performed By: #### C MP, GFR #### [address] [address] Hemoglobin (Bld) [Mass/Vol] 12.1 G/dL Normal 12.0-16.0 [facility] ([place]) Comment on above: Performed By: #### C MP, GFR #### [address] [address] MCH (RBC) [Entitic mass] 30.4 pg Normal 27.0-31.2 [facility] ([place]) Comment on above: Performed By: #### C MP, GFR #### [address] [address] MCHC (RBC) [Mass/Vol] 33.7 G/dL Normal 33.0-37.0 [facility] ([place]) Comment on above: Performed By: #### C MP, GFR #### [address] [address] MCV (RBC) [Entitic vol] 90.4 fL Normal 80.0-94.0 [facility] ([place]) Comment on above: Performed By: #### C MP, GFR #### [address] [address] Platelet mean volume (Bld) [Entitic vol] 11.2 fL High 7.4-10.4 [facility] ([place]) Comment on above: Performed By: #### C MP, GFR #### [address] [address] Platelets (Bld) [#/Vol] 138 10 3/mcL Normal 130-400 [facility] ([place]) Comment on above: Performed By: #### C MP, GFR #### [address] [address] RBC (Bld) [#/Vol] 3.99 10 6/mcL Low 4.20-5.40 [facility] ([place]) Comment on above: Performed By: #### C MP, GFR #### [address] [address] WBC (Bld) [#/Vol] 8.70 10 3/mcL Normal 4.60-10.80 [facility] ([place]) Comment on above: Performed By: #### C MP, GFR #### [address] [address] CMPon 12-31-2019 Albumin [Mass/Vol] 2.6 G/dL Low 3.5-5.0 [facility] ([place]) Comment on above: Performed By: #### C MP, GFR #### [address] [address] Albumin/Globulin [Mass ratio] 0.7 {ratio} Low 1.1-2.5 [facility] ([place]) Comment on above: Performed By: #### C MP, GFR #### [address] [address] ALP [Catalytic activity/Vol] 153 U/L High 40-135 [facility] ([place]) Comment on above: Performed By: #### C MP, GFR #### [address] [address] ALT [Catalytic activity/Vol] 33 U/L Normal 14-59 [facility] ([place]) Comment on above: Performed By: #### C MP, GFR #### [address] [address] AST [Catalytic activity/Vol] 47 U/L High 10-40 [facility] ([place]) Comment on above: Performed By: #### C MP, GFR #### [address] [address] Bili Total 0.3 mg/dL Normal 0.2-1.0 [facility] ([place]) Comment on above: Result Comment: Use of this assay is not recommended for patients undergoing treatment with eltrombopag due to the potential for falsely elevated results. Performed By: #### C MP, GFR #### [address] [address] Calcium [Mass/Vol] 9.0 mg/dL Normal 8.4-10.2 [facility] ([place]) Comment on above: Performed By: #### C MP, GFR #### [address] [address] Chloride [Moles/Vol] 103 mmol/L Normal 98-107 [facility] ([place]) Comment on above: Performed By: #### C MP, GFR #### [address] [address] CO2 [Moles/Vol] 27 mmol/L Normal 22-29 [facility] ([place]) Comment on above: Performed By: #### C MP, GFR #### [address] [address] Creatinine [Mass/Vol] 0.77 mg/dL Normal 0.55-1.02 [facility] ([place]) Comment on above: Performed By: #### C MP, GFR #### [address] [address] Electrolyte Balance 9.0 mEq/L Normal [facility] ([place]) Comment on above: Performed By: #### C MP, GFR #### [address] [address] Globulin (S) [Mass/Vol] 3.7 G/dL Normal [facility] ([place]) Comment on above: Performed By: #### C MP, GFR #### [address] [address] Glucose [Mass/Vol] 97 mg/dL Normal 70-105 [facility] ([place]) Comment on above: Performed By: #### C MP, GFR #### [address] [address] Potassium [Moles/Vol] 3.8 mmol/L Normal 3.5-5.1 [facility] ([place]) Comment on above: Performed By: #### C MP, GFR #### [id number] [place], [place] [address] Protein [Mass/Vol] 6.3 G/dL Low 6.4-8.2 [facility] ([place]) Comment on above: Performed By: #### C MP, GFR #### [place] [id number] [place], [place] [address] Sodium [Moles/Vol] 139 mmol/L Normal 136-145 [facility]) Comment on above: Performed By: #### C MP, GFR #### [address] [address] Urea nitrogen [Mass/Vol] 5 mg/dL Low 7-18 [facility]) Comment on above: Performed By: #### C MP, GFR #### [address] [address] Urea nitrogen/Creatinine [Mass ratio] 6 ratio Low 7-27 [facility]) Comment on above: Performed By: #### C MP, GFR #### [address] [address] Final Surgical Pathology Rep [facility] 12-31-2019 Final Surgical Pathology Report . 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 COMMENT: [facility] - [id number] CLINICAL INFORMATION: Procedure: SECTION Preoperative diagnosis: NON-REASSURING [...] 2.5 cm in diameter. Extraplacental membranes are brewster -stone, slightly green stained, opaque and inserting at the placental margin. The surface is purple-blue with arborizing vasculature. The maternal surface is red-brown with intact lobulations with focal white specks and a peripherally located yellow rubbery area. On cut section the disc is red-brown, soft and spongy with peripherally located lesion on the maternal surface measuring 3 x 2 x 0.2 cm. Safety Person sections in 3 cassettes. Dictated by NORBERTO REN MICROSCOPIC DESCRIPTION: Slides reviewed. Electronically Signed by Pathology Report verified by [facility] Electronically signed by PAULA SAMUEL DO Sign out Date: 12/31/2019 13:09 Performing Lab: [facility], [address] [place] [id number] Normal [facility] ([place]) Comment on above: Performed By: #### C MP, GFR #### Jeni [address] [address] UAon 12-31-2019 Color (U) Yellow Normal [facility] ([place]) Comment on above: Performed By: #### C MP, GFR #### [address] [address] Glucose (U) [Mass/Vol] Negative Normal Negative [facility] ([place]) Comment on above: Performed By: #### C MP, GFR #### Jeni [address] [address] Ketones Ql (U) Negative Normal Negative [facility] ([place]) Comment on above: Performed By: #### C MP, GFR #### Jen[address] [address] UA Appear Slightly Cloudy Abnormal Clear [facility] ([place] Comment on above: Performed By: #### C MP, GFR #### Jen[address] [address] UA Blood Large Abnormal Negative [facility] ([place] Comment on above: Performed By: #### C MP, GFR #### Jen[address] [address] UA Leuk Est Trace Abnormal Negative [facility] ([place] Comment on above: Performed By: #### C MP, GFR #### [address] [address] UA Nitrite Negative Normal Negative [facility] ([place]) Comment on above: Performed By: #### C MP, GFR #### [address] [address] UA pH 7.0 Normal 5.0 - 8.0 [facility] ([place]) Comment on above: Performed By: #### C MP, GFR #### [address] [address] UA Protein Trace Normal Negative [facility] ([place] Comment on above: Performed By: #### C MP, GFR #### [address] [address] UA Spec Grav 1.025 Normal 1.015-1.025 [facility] ([place]) Comment on above: Performed By: #### C MP, GFR #### [place] [address] UA Specimen Type Clean Catch Normal [facility] ([place]) Comment on above: Performed By: #### C MP, GFR #### [address] [address] UA Urobilinogen 0.2 E.U./dL Normal 0.2-1.0 [facility] ([place]) Comment on above: Performed By: #### C MP, GFR #### [place] [address] Urobilinogen Qn (U) Negative Normal Negative [facility] ([place]) Comment on above: Performed By: #### C MP, GFR #### [place] [phone] US PELVIS NON-OB LIMITEDon 1 US PELVIS [...] Date: 12/30/2019 11:36:10 PM Ordering Provider:Nikko Urbina [facility] ([place]) .Auto Diffon 12-29-2019 Ammonia (P) [Mass/Vol] 0.80 10 3/mcL Normal 0.15-1.00 [facility] ([place]) Comment on above: Performed By: #### C AMELIA, GFR #### Jeni [address] [address] Basophils (Bld) [#/Vol] 0.00 10 3/mcL Normal 0.00-0.19 [facility] ([place]) Comment on above: Performed By: #### C MP, GFR #### Jeni [address] [address] Basophils/100 WBC (Bld) 0.2 % Normal 0.0-2.5 A [facility] ([place]) Comment on above: Performed By: #### C MP, GFR #### Jeni [address] [address] Eosinophils (Bld) [#/Vol] 0.00 10 3/mcL Normal 0.00-0. 40 [facility] ([place]) Comment on above: Performed By: #### C MP, GFR #### [address] [address] Eosinophils/100 WBC (Bld) 0.4 % Normal 0.0-7.0 [facility] ([place]) Comment on above: Performed By: #### C MP, GFR #### [address] [address] Lymphocytes (Bld) [#/Vol] 1.20 10 3/mcL Normal 0.77-3. 85 [facility] ([place]) Comment on above: Performed By: #### C MP, GFR #### [address] [address] Lymphocytes/100 WBC (Bld) 13.1 % Normal 10.0-50.0 [facility] ([place]) Comment on above: Performed By: #### C MP, GFR #### [address] [address] Monocytes/100 WBC (Bld) 8.3 % Normal 1.7-13.0 [facility] ([place]) Comment on above: Performed By: #### C MP, GFR #### [address] [address] Neutrophils/100 WBC (Bld) 78.0 % Normal 37.0-80.0 [facility] ([place]) Comment on above: Performed By: #### C MP, GFR #### [address] [address] .NEUABSon 12-29-2019 Neutrophils (Bld) [#/Vol] 7.10 10 3/mcL High 2.85-6. 16 [facility] ([place]) Comment on above: Performed By: #### C MP, GFR #### [address] [address] CBCon 12-29-2019 Erythrocyte distribution width (RBC) [Ratio] 13.7 % Normal 11.5-14.5 [facility] ([place]) Comment on above: Performed By: #### G LU1P, BMP, GFR #### [address] [address] Hematocrit (Bld) [Volume fraction] 32.2 % Low 37.0-47.0 [facility] ([place]) Comment on above: Performed By: #### Jeramie KIM, BMP, GFR #### [place] [phone] Hemoglobin (Bld) [Mass/Vol] 10.9 G/dL Low 12.0-16.0 [facility] ([place]) Comment on above: Performed By: #### Jeramie KIM, BMP, GFR #### [place] [phone] MCH (RBC) [Entitic mass] 30.8 pg Normal 27.0-31.2 [facility] ([place]) Comment on above: Performed By: #### Jeramie KIM, BMP, GFR #### [place] [phone] MCHC (RBC) [Mass/Vol] 34.0 G/dL Normal 33.0-37.0 [facility] ([place]) Comment on above: Performed By: #### Jeramie KIM, BMP, GFR #### [place] [phone] MCV (RBC) [Entitic vol] 90.7 fL Normal 80.0-94.0 A [facility] ([place] Comment on above: Performed By: #### Jeramie KIM, BMP, GFR #### [place] [phone] Platelet mean volume (Bld) [Entitic vol] 11.6 fL High 7.4-10.4 [facility] ([place]) Comment on above: Performed By: #### Jeramie KIM, BMP, GFR #### [place] [phone] Platelets (Bld) [#/Vol] 111 10 3/mcL Low 130-400 [facility] ([place]) Comment on above: Performed By: #### Jeramie LU1P, BMP, GFR #### [place] [phone] RBC (Bld) [#/Vol] 3.55 10 6/mcL Low 4.20-5.40 [facility] ([place]) Comment on above: Performed By: #### G LU1P, BMP, GFR #### [address] [address] WBC (Bld) [#/Vol] 9.10 10 3/mcL Normal 4.60-10.80 [facility] ([place]) Comment on above: Performed By: #### G LU1P, BMP, GFR #### [place] [phone] Gel ABOon 12-28-2019 ABO/Rh Interp Positive [facility] ([place]) Comment on above: Performed By: #### G LU1P, BMP, GFR #### [place] [address] Gel ABSon 12-28-2019 Antibody Screen Gel Negative Normal [facility] ([place]) Comment on above: Performed By: #### G LU1P, BMP, GFR #### [place] [address] .Auto Diffon 12-27-2019 Ammonia (P) [Mass/Vol] 0.70 10 3/mcL Normal 0.15-1.00 [facility] ([place] Comment on above: Performed By: #### G LU1P, BMP, GFR #### [place] [address] Basophils (Bld) [#/Vol] 0.00 10 3/mcL Normal 0.00-0.19 [facility] ([place]) Comment on above: Performed By: #### G LU1P, BMP, GFR #### [place] [address] Basophils/100 WBC (Bld) 0.3 % Normal 0.0-2.5 A [facility] ([place] Comment on above: Performed By: #### G LU1P, BMP, GFR #### [place] [address] Eosinophils (Bld) [#/Vol] 0.10 10 3/mcL Normal 0.00-0. 40 [facility] ([place]) Comment on above: Performed By: #### G LU1P, BMP, GFR #### [address] [address] Eosinophils/100 WBC (Bld) 0.6 % Normal 0.0-7.0 [facility] ([place] Comment on above: Performed By: #### G LU1P, BMP, GFR #### [address] [address] Lymphocytes (Bld) [#/Vol] 1.50 10 3/mcL Normal 0.77-3. 85 [facility] ([place]) Comment on above: Performed By: #### G LU1P, BMP, GFR #### [address] [address] Lymphocytes/100 WBC (Bld) 16.2 % Normal 10.0-50.0 [facility] ([place] Comment on above: Performed By: #### G LU1P, BMP, GFR #### [address] [address] Monocytes/100 WBC (Bld) 7.9 % Normal 1.7-13.0 A [facility] ([place] Comment on above: Performed By: #### G LU1P, BMP, GFR #### [address] [address] Neutrophils/100 WBC (Bld) 75.0 % Normal 37.0-80.0 [facility] ([place] Comment on above: Performed By: #### G LU1P, BMP, GFR #### [address] [address] .NEUABSon 12-27-2019 Neutrophils (Bld) [#/Vol] 6.90 10 3/mcL High 2.85-6. 16 [facility] ([place]) Comment on above: Performed By: #### G LU1P, BMP, GFR #### [address] [address] CBCon 12-27-2019 Erythrocyte distribution width (RBC) [Ratio] 13.3 % Normal 11.5-14.5 [facility] ([place]) Comment on above: Performed By: #### G LU1P, BMP, GFR #### [address] [address] Hematocrit (Bld) [Volume fraction] 38.8 % Normal 37.0-47.0 [facility] ([place] Comment on above: Performed By: #### Jeramie KIM, BMP, GFR #### [place] [phone] Hemoglobin (Bld) [Mass/Vol] 13.3 G/dL Normal 12.0-16.0 [facility] ([place]) Comment on above: Performed By: #### Jeramie KIM, BMP, GFR #### [place] [phone] MCH (RBC) [Entitic mass] 30.5 pg Normal 27.0-31.2 [facility] ([place]) Comment on above: Performed By: #### Jeramie KIM, BMP, GFR #### [place] [phone] MCHC (RBC) [Mass/Vol] 34.3 G/dL Normal 33.0-37.0 [facility] ([place]) Comment on above: Performed By: #### Jeramie KIM, BMP, GFR #### [place] [phone] MCV (RBC) [Entitic vol] 88.9 fL Normal 80.0-94.0 A [facility] ([place] Comment on above: Performed By: #### Jeramie KIM, BMP, GFR #### [place] [phone] Platelet mean volume (Bld) [Entitic vol] 11.4 fL High 7.4-10.4 [facility] ([place] Comment on above: Performed By: #### Jeramie LU1P, BMP, GFR #### [place] [phone] Platelets (Bld) [#/Vol] 129 10 3/mcL Low 130-400 [facility] ([place]) Comment on above: Performed By: #### Jeramie LU1P, BMP, GFR #### [place] [phone] RBC (Bld) [#/Vol] 4.36 10 6/mcL Normal 4.20-5.40 [facility] ([place]) Comment on above: Performed By: #### Jeramie LU1P, BMP, GFR #### [address] [address] WBC (Bld) [#/Vol] 9.20 10 3/mcL Normal 4.60-10.80 [facility] ([place]) Comment on above: Performed By: #### Jeramie LU1P, BMP, GFR #### [address] [address] .Auto Diffon 12-19-2019 Ammonia (P) [Mass/Vol] 0.60 10 3/mcL Normal 0.15-1.00 [facility] ([place] Comment on above: Performed By: #### Jeramie LU1P, BMP, GFR #### [address] [address] Basophils (Bld) [#/Vol] 0.00 10 3/mcL Normal 0.00-0.19 [facility] ([place] Comment on above: Performed By: #### Jeramie LU1P, BMP, GFR #### [address] [address] Basophils/100 WBC (Bld) 0.5 % Normal 0.0-2.5 A [facility] ([place] Comment on above: Performed By: #### Jeramie LU1P, BMP, GFR #### [address] [address] Eosinophils (Bld) [#/Vol] 0.00 10 3/mcL Normal 0.00-0. 40 [facility] ([place] Comment on above: Performed By: #### Jeramie LU1P, BMP, GFR #### [address] [address] Eosinophils/100 WBC (Bld) 0.6 % Normal 0.0-7.0 [facility] ([place] Comment on above: Performed By: #### G LU1P, BMP, GFR #### [address] [address] Lymphocytes (Bld) [#/Vol] 1.20 10 3/mcL Normal 0.77-3. 85 [facility] ([place] Comment on above: Performed By: #### G LU1P, BMP, GFR #### [address] [address] Lymphocytes/100 WBC (Bld) 14.6 % Normal 10.0-50.0 [facility] ([place] Comment on above: Performed By: #### G LU1P, BMP, GFR #### [address] [address] Monocytes/100 WBC (Bld) 7.4 % Normal 1.7-13.0 A [facility] ([place]) Comment on above: Performed By: #### G LU1P, BMP, GFR #### [address] [address] Neutrophils/100 WBC (Bld) 76.9 % Normal 37.0-80.0 [facility] ([place] Comment on above: Performed By: #### G LU1P, BMP, GFR #### [address] [address] .GFRon 12-19-2019 GFR Non- 122 ml/min/1.73sqm Normal [facility] ([place]) Comment on above: Result Comment: GFR [...] By: #### G LU1P, BMP, GFR #### [address] [address] GFR 147 ml/min/1.73sqm Normal [facility] ([place]) Comment on above: Result Comment: GFR [...] By: #### G LU1P, BMP, GFR #### [address] [address] .NEUABSon 12-19-2019 Neutrophils (Bld) [#/Vol] 6.40 10 3/mcL High 2.85-6. 16 [facility] ([place] Comment on above: Performed By: #### G LU1P, BMP, GFR #### [address] [address] CBCon 12-19-2019 Erythrocyte distribution width (RBC) [Ratio] 13.4 % Normal 11.5-14.5 [facility] ([place] Comment on above: Performed By: #### G LU1P, BMP, GFR #### [address] [address] Hematocrit (Bld) [Volume fraction] 37.1 % Normal 37.0-47.0 [facility] ([place] Comment on above: Performed By: #### G LU1P, BMP, GFR #### [address] [address] Hemoglobin (Bld) [Mass/Vol] 12.9 G/dL Normal 12.0-16.0 [facility] ([place] Comment on above: Performed By: #### G LU1P, BMP, GFR #### [address] [address] MCH (RBC) [Entitic mass] 30.7 pg Normal 27.0-31.2 [facility] ([place] Comment on above: Performed By: #### G LU1P, BMP, GFR #### [address] [address] MCHC (RBC) [Mass/Vol] 34.6 G/dL Normal 33.0-37.0 [facility] ([place]) Comment on above: Performed By: #### Jeramie LUAlice, BMP, GFR #### [place] [phone] MCV (RBC) [Entitic vol] 88.7 fL Normal 80.0-94.0 A [facility] ([place] Comment on above: Performed By: #### Jeramie LU1P, BMP, GFR #### [place] [phone] Platelet mean volume (Bld) [Entitic vol] 11.4 fL High 7.4-10.4 [facility] ([place] Comment on above: Performed By: #### Jeramie DE LOS SANTOS1P, BMP, GFR #### [place] [phone] Platelets (Bld) [#/Vol] 128 10 3/mcL Low 130-400 [facility] ([place] Comment on above: Performed By: #### Jeramie LU1P, BMP, GFR #### [place] [address] RBC (Bld) [#/Vol] 4.18 10 6/mcL Low 4.20-5.40 [facility] ([place]) Comment on above: Performed By: #### Jeramie LU1P, BMP, GFR #### [place] [phone] WBC (Bld) [#/Vol] 8.30 10 3/mcL Normal 4.60-10.80 [facility] ([place]) Comment on above: Performed By: #### Jeramie LU1P, BMP, GFR #### [place] [phone] CMPon 12-19-2019 Albumin [Mass/Vol] 2.6 G/dL Low 3.5-5.0 [facility] ([place]) Comment on above: Performed By: #### Jeramie LU1P, BMP, GFR #### [place] [phone] Albumin/Globulin [Mass ratio] 0.7 {ratio} Low 1.1-2.5 [facility] ([place] Comment on above: Performed By: #### Jeramie DE LOS SANTOS1P, BMP, GFR #### [address] [address] ALP [Catalytic activity/Vol] 207 U/L High 40-135 [facility] ([place] Comment on above: Performed By: #### Jeramie LU1P, BMP, GFR #### [address] [address] ALT [Catalytic activity/Vol] 29 U/L Normal 14-59 [facility] ([place] Comment on above: Performed By: #### Jeramie DE LOS SANTOS1P, BMP, GFR #### [address] [address] AST [Catalytic activity/Vol] 28 U/L Normal 10-40 [facility] ([place] Comment on above: Performed By: #### Jeramie DE LOS SANTOS1P, BMP, GFR #### [address] [address] Bili Total 0.3 mg/dL Normal 0.2-1.0 [facility] ([place]) Comment on above: Result Comment: Use of this assay is not recommended for patients undergoing treatment with eltrombopag due to the potential for falsely elevated results. Performed By: #### Jeramie KIM, BMP, GFR #### [address] [address] Calcium [Mass/Vol] 8.5 mg/dL Normal 8.4-10.2 [facility] ([place] Comment on above: Performed By: #### Jeramie DE LOS SANTOS1P, BMP, GFR #### [address] [address] Chloride [Moles/Vol] 105 mmol/L Normal 98-107 [facility] ([place]) Comment on above: Performed By: #### Jeramie LU1P, BMP, GFR #### [address] [address] CO2 [Moles/Vol] 23 mmol/L Normal 22-29 [facility] ([place] Comment on above: Performed By: #### Jeramie LU1P, BMP, GFR #### [address] [address] Creatinine [Mass/Vol] 0.61 mg/dL Normal 0.55-1.02 [facility] ([place]) Comment on above: Performed By: #### Jeramie DE LOS SANTOS1P, BMP, GFR #### [address] [address] Electrolyte Balance 10.0 mEq/L Normal [facility] ([place] Comment on above: Performed By: #### G MAGALI1P, BMP, GFR #### [address] [address] Globulin (S) [Mass/Vol] 3.6 G/dL Normal A [facility] ([place] Comment on above: Performed By: #### Jeramie DE LOS SANTOS1P, BMP, GFR #### [address] [address] Glucose [Mass/Vol] 78 mg/dL Normal 70-105 [facility] ([place] Comment on above: Performed By: #### Jeramie DE LOS SANTOS1P, BMP, GFR #### [address] [address] Potassium [Moles/Vol] 3.9 mmol/L Normal 3.5-5.1 [facility] ([place]) Comment on above: Performed By: #### Jeramie DE LOS SANTOS1P, BMP, GFR #### [address] [address] Protein [Mass/Vol] 6.2 G/dL Low 6.4-8.2 [facility] ([place] Comment on above: Performed By: #### Jeramie LU1P, BMP, GFR #### [address] [address] Sodium [Moles/Vol] 138 mmol/L Normal 136-145 [facility] ([place] Comment on above: Performed By: #### Jeramie LU1P, BMP, GFR #### [address] [address] Urea nitrogen [Mass/Vol] 1 mg/dL Low 7-18 [facility] ([place] Comment on above: Performed By: #### Jeramie DE LOS SANTOS1P, BMP, GFR #### [address] [address] Urea nitrogen/Creatinine [Mass ratio] 2 ratio Low 7-27 [facility] ([place] Comment on above: Performed By: #### G LU1P, BMP, GFR #### [address] [address] RPCURon 12-19-2019 Protein [Mass/Vol] 28 mg/dL High 0-11 [facility] ([place] Comment on above: Performed By: #### G LU1P, BMP, GFR #### [address] [address] U Creatinine 49.9 mg/dL Normal 28.0-117.0 [facility] ([place] Comment on above: Performed By: #### G LU1P, BMP, GFR #### [place] [address] U Ratio Prot/Creat 0.6 ratio Normal [facility] ([place]) Comment on above: Result Comment: resu lt calculated by rule GL_UR_PROT_[id number]_OLD (U Protein/U Creatinine) Performed By: #### G LU1P, BMP, GFR #### [place] [address] URICon 12-19-2019 Uric Acid Lvl 3.4 mg/dL Normal 2.6-6.2 [facility] ([place]) Comment on above: Performed By: #### G LU1P, BMP, GFR #### [place] [address] MISCMon 12-03-2019 MISCM . MICRO - Microbiology [...] Locations *1: This test was performed at: [address] [place], [address]- , [place] Normal [facility] ([place]) Comment on above: Performed By: #### G LU1P, BMP, GFR #### [address] [address] HGMPon 11-28-2019 Erythrocyte distribution width (RBC) [Ratio] 12.9 % Normal 11.5-14.5 [facility] ([place] Comment on above: Performed By: #### G LU1P, BMP, GFR #### [address] [address] Hematocrit (Bld) [Volume fraction] 37.9 % Normal 37.0-47.0 [facility] ([place] Comment on above: Performed By: #### G LU1P, BMP, GFR #### [address] [address] Hemoglobin (Bld) [Mass/Vol] 12.9 G/dL Normal 12.0-16.0 [facility] ([place] Comment on above: Performed By: #### Jeramie LU1P, BMP, GFR #### [address] [address] MCH (RBC) [Entitic mass] 30.4 pg Normal 27.0-31.2 [facility] ([place] Comment on above: Performed By: #### G LU1P, BMP, GFR #### [address] [address] MCHC (RBC) [Mass/Vol] 34.1 G/dL Normal 33.0-37.0 [facility] ([place]) Comment on above: Performed By: #### G LU1P, BMP, GFR #### [address] [address] MCV (RBC) [Entitic vol] 89.1 fL Normal 80.0-94.0 A [facility] ([place] Comment on above: Performed By: #### G LU1P, BMP, GFR #### [address] [address] Platelet mean volume (Bld) [Entitic vol] 11.7 fL High 7.4-10.4 [facility] ([place] Comment on above: Performed By: #### G LU1P, BMP, GFR #### [place] [address] Platelets (Bld) [#/Vol] 147 10 3/mcL Normal 130-400 [facility] ([place] Comment on above: Performed By: #### G LU1P, BMP, GFR #### [place] [phone] RBC (Bld) [#/Vol] 4.25 10 6/mcL Normal 4.20-5.40 [facility] ([place]) Comment on above: Performed By: #### G LU1P, BMP, GFR #### [place] [phone] WBC (Bld) [#/Vol] 10.30 10 3/mcL Normal 4.60-10.80 [facility] ([place]) Comment on above: Performed By: #### G LU1P, BMP, GFR #### [place] [address] HHon 10-31-2019 Hematocrit (Bld) [Volume fraction] 37.0 % Normal 37.0-47.0 [facility] ([place] Comment on above: Performed By: #### G LU1P, BMP, GFR #### [place] [address] Hemoglobin (Bld) [Mass/Vol] 12.8 G/dL Normal 12.0-16.0 [facility] ([place] Comment on above: Performed By: #### G LU1P, BMP, GFR #### [place] [address] PLTon 10-31-2019 Platelets (Bld) [#/Vol] 134 10 3/mcL Normal 130-400 [facility] ([place] Comment on above: Performed By: #### G LU1P, BMP, GFR #### [place] [address] .GFRon 09-26-2019 GFR 147 ml/min/1.73sqm Normal [facility] ([place]) Comment on above: Result Comment: GFR Population [...] By: #### G LU1P, BMP, GFR #### [address] [address] GFR Non- 122 ml/min/1.73sqm Normal [facility] ([place] Comment on above: Result Comment: GFR Population [...] By: #### G LU1P, BMP, GFR #### [address] [address] .Urinalysis Microscopic (AO) on 09-26-2019 RBC (U) [#/Vol] None Seen Normal None Seen [facility] ([place] Comment on above: Performed By: #### G LU1P, BMP, GFR #### [address] [address] UA Squam Epithelial 0-5 Abnormal None Seen [facility] ([place] Comment on above: Performed By: #### G LU1P, BMP, GFR #### [address] [address] UA WBC 0-5 Abnormal None Seen [facility] ([place] Comment on above: Performed By: #### G LU1P, BMP, GFR #### [address] [address] CMPon 09-26-2019 Albumin [Mass/Vol] 3.2 G/dL Low 3.5-5.0 [facility] ([place] Comment on above: Performed By: #### H GMP, URIC, CMP, GFR #### [address] [address] Albumin/Globulin [Mass ratio] 0.9 {ratio} Low 1.1-2.5 [facility] ([place] Comment on above: Performed By: #### H GMP, URIC, CMP, GFR #### [address] [address] ALP [Catalytic activity/Vol] 90 U/L Normal 40-135 [facility] ([place] Comment on above: Performed By: #### H GMP, URIC, CMP, GFR #### [address] [address] ALT [Catalytic activity/Vol] 17 U/L Normal 10-35 [facility] ([place] Comment on above: Performed By: #### H GMP, URIC, CMP, GFR #### [address] [address] AST [Catalytic activity/Vol] 15 U/L Normal 10-40 [facility] ([place] Comment on above: Performed By: #### H GMP, URIC, CMP, GFR #### [address] [address] Bili Total 0.2 mg/dL Normal 0.2-1.0 [facility] ([place] Comment on above: Result Comment: Use of this assay is not recommended for patients undergoing treatment with eltrombopag due to the potential for falsely elevated results. Performed By: #### H GMP, URIC, CMP, GFR #### [address] [address] Calcium [Mass/Vol] 9.3 mg/dL Normal 8.4-10.2 [facility] ([place] Comment on above: Performed By: #### H GMP, URIC, CMP, GFR #### [address] [address] Chloride [Moles/Vol] 103 mmol/L Normal 98-107 [facility] ([place]) Comment on above: Performed By: #### H GMP, URIC, CMP, GFR #### [address] [address] CO2 [Moles/Vol] 24 mmol/L Normal 22-29 [facility] ([place] Comment on above: Performed By: #### H GMP, URIC, CMP, GFR #### [address] [address] Creatinine [Mass/Vol] 0.61 mg/dL Normal 0.55-1.02 [facility] ([place]) Comment on above: Performed By: #### H GMP, URIC, CMP, GFR #### [address] [address] Electrolyte Balance 12.0 mEq/L Normal [facility] ([place] Comment on above: Performed By: #### H GMP, URIC, CMP, GFR #### [address] [address] Globulin (S) [Mass/Vol] 3.6 G/dL Normal A [facility] ([place] Comment on above: Performed By: #### H GMP, URIC, CMP, GFR #### [address] [address] Glucose [Mass/Vol] 76 mg/dL Normal 70-105 [facility] ([place] Comment on above: Performed By: #### H GMP, URIC, CMP, GFR #### [address] [address] Potassium [Moles/Vol] 3.7 mmol/L Normal 3.5-5.1 [facility] ([place] Comment on above: Performed By: #### H GMP, URIC, CMP, GFR #### [address] [address] Protein [Mass/Vol] 6.8 G/dL Normal 6.4-8.2 [facility] ([place] Comment on above: Performed By: #### H GMP, URIC, CMP, GFR #### [address] [address] Sodium [Moles/Vol] 139 mmol/L Normal 136-145 [facility] ([place] Comment on above: Performed By: #### H GMP, URIC, CMP, GFR #### [address] [address] Urea nitrogen [Mass/Vol] 3 mg/dL Low 7-18 [facility] ([place] Comment on above: Performed By: #### H GMP, URIC, CMP, GFR #### [address] [address] Urea nitrogen/Creatinine [Mass ratio] 5 ratio Low 7-27 [facility] ([place] Comment on above: Performed By: #### H GMP, URIC, CMP, GFR #### [address] [address] HGMPon 09-26-2019 Erythrocyte distribution width (RBC) [Ratio] 12.7 % Normal 11.5-14.5 [facility] ([place] Comment on above: Performed By: #### H GMP, URIC, CMP, GFR #### [address] [address] Hematocrit (Bld) [Volume fraction] 38.8 % Normal 37.0-47.0 [facility] ([place] Comment on above: Performed By: #### H GMP, URIC, CMP, GFR #### [address] [address] Hemoglobin (Bld) [Mass/Vol] 13.1 G/dL Normal 12.0-16.0 [facility] ([place] Comment on above: Performed By: #### H GMP, URIC, CMP, GFR #### [address] [address] MCH (RBC) [Entitic mass] 30.6 pg Normal 27.0-31.2 [facility] ([place]) Comment on above: Performed By: #### H GMP, URIC, CMP, GFR #### [address] [address] MCHC (RBC) [Mass/Vol] 33.9 G/dL Normal 33.0-37.0 [facility] ([place]) Comment on above: Performed By: #### H GMP, URIC, CMP, GFR #### [address] [address] MCV (RBC) [Entitic vol] 90.3 fL Normal 80.0-94.0 [facility] ([place]) Comment on above: Performed By: #### H GMP, URIC, CMP, GFR #### [address] [address] Platelet mean volume (Bld) [Entitic vol] 11.7 fL High 7.4-10.4 [facility] ([place]) Comment on above: Performed By: #### H GMP, URIC, CMP, GFR #### [address] [address] Platelets (Bld) [#/Vol] 139 10 3/mcL Normal 130-400 [facility] ([place]) Comment on above: Performed By: #### H GMP, URIC, CMP, GFR #### [address] [address] RBC (Bld) [#/Vol] 4.29 10 6/mcL Normal 4.20-5.40 [facility] ([place]) Comment on above: Performed By: #### H GMP, URIC, CMP, GFR #### [address] [address] WBC (Bld) [#/Vol] 8.40 10 3/mcL Normal 4.60-10.80 [facility] ([place]) Comment on above: Performed By: #### H GMP, URIC, CMP, GFR #### [address] [address] UAon 07-08-2020 Color (U) Yellow Normal [facility] ([place]) Comment on above: Performed By: #### G LU1P, BMP, GFR #### [place] [address] Glucose (U) [Mass/Vol] Negative Normal Negative [facility] ([place]) Comment on above: Performed By: #### G LU1P, BMP, GFR #### [place] [address] Ketones Ql (U) Negative Normal Negative [facility] ([place]) Comment on above: Performed By: #### G LU1P, BMP, GFR #### [place] [address] UA Appear Clear Normal Clear [facility] ([place]) Comment on above: Performed By: #### G LU1P, BMP, GFR #### [address] [address] UA Blood Negative Normal Negative [facility] ([place]) Comment on above: Performed By: #### G LU1P, BMP, GFR #### [place] [address] UA Leuk Est Small Abnormal Negative [facility] ([place] Comment on above: Performed By: #### G LU1P, BMP, GFR #### [address] [address] UA Nitrite Negative Normal Negative [facility] ([place] Comment on above: Performed By: #### G LU1P, BMP, GFR #### [place] [address] UA pH 7.0 Normal 5.0 - 8.0 [facility] ([place]) Comment on above: Performed By: #### G LU1P, BMP, GFR #### [place] [id number] UA Protein Negative Normal Negative [facility] ([place] Comment on above: Performed By: #### G LU1P, BMP, GFR #### [place] [address] UA Spec Grav 1.020 Normal 1.015-1.025 [facility] ([place]) Comment on above: Performed By: #### G LU1P, BMP, GFR #### [facility] [address] [place] [address] UA Specimen Type Not Given Normal [facility] ([place] Comment on above: Performed By: #### G LU1P, BMP, GFR #### [facility] [address] [place] [address] UA Urobilinogen 0.2 E.U./dL Normal 0.2-1.0 [facility] ([place] Comment on above: Performed By: #### G LU1P, BMP, GFR #### [facility] [address] [place] [address] Urobilinogen Qn (U) Negative Normal Negative [facility] ([place]) Comment on above: Performed By: #### G LU1P, BMP, GFR #### [address] [address] URICon 09-26-2019 Uric Acid Lvl 2.9 mg/dL Normal 2.6-6.2 [facility] ([place] Comment on above: Performed By: #### H GMP, URIC, CMP, GFR #### [address] [address] BILEon 09-20-2019 Cholesterol [Mass/Vol] 1.6 mg/dL Normal [facility] ([place] Comment on above: Order Comment: Test delay notice sent from [place] 09/19/19 anticiapted date of completion is 09/24/19 Result Comment: Refe rence range: 0.0 to 2.5 Unit: umol/L Performed By: #### H GMP, BILE #### [address] [address] Cholesterol [Mass/Vol] 0.3 mg/dL Normal [facility] ([place] Comment on above: Order Comment: Test delay notice sent from [place] 09/19/19 anticiapted date of completion is 09/24/19 Result Comment: Refe rence range: 0.0 to 1.0 Unit: umol/L Performed By: #### H GMP, BILE #### [address] [address] Cholesterol [Mass/Vol] 0.9 mg/dL Normal [facility] ([place] Comment on above: Order Comment: Test delay notice sent from [place] 09/19/19 anticiapted date of completion is 09/24/19 Result Comment: Refe rence range: 0.0 to 3.4 Unit: umol/L Performed By: #### H GMP, BILE #### Jeni [address] [address] Cholesterol [Mass/Vol] 1.1 mg/dL Normal [facility] [place] Comment on above: Order Comment: Test delay notice sent from [place] 09/19/19 anticiapted date of completion is 09/24/19 Result Comment: Refe rence range: 0.0 to 1.9 Unit: umol/L Performed By: #### H GMP, BILE #### Jeni [address] [address] Total Bile Acids 3.9 Normal [facility] ([place] Comment on above: Order Comment: Test delay notice sent from [place] 09/19/19 anticiapted date of completion is 09/24/19 Result Comment: Refe rence range: 0.0 to 7.0 Unit: umol/L (NOTE) INTERPRETIVE INFORMATION: Bile Acids, Fractionated and Total Test developed and characteristics determined by [employer]. See Compliance Statement B: [email or web address] Performed by [facility], [address] [place] [id number] [email or web address], Paul Cruz MD, Lab. Director Performed By: #### H GMP, BILE #### Jeni [address] [address] [facility] 09-12-2019 Erythrocyte distribution width (RBC) [Ratio] 12.6 % Normal 11.5-14.5 [facility] ([place]) Comment on above: Performed By: #### H GMP, BILE #### Jeni [address] [address] Hematocrit (Bld) [Volume fraction] 38.7 % Normal 37.0-47.0 [facility] ([place]) Comment on above: Performed By: #### H GMP, BILE #### [address] [address] Hemoglobin (Bld) [Mass/Vol] 13.1 G/dL Normal 12.0-16.0 [facility] ([place]) Comment on above: Performed By: #### H GMP, BILE #### [address] [address] MCH (RBC) [Entitic mass] 30.7 pg Normal 27.0-31.2 [facility] ([place]) Comment on above: Performed By: #### H GMP, BILE #### [address] [address] MCHC (RBC) [Mass/Vol] 33.8 G/dL Normal 33.0-37.0 [facility] ([place]) Comment on above: Performed By: #### H GMP, BILE #### [address] [address] MCV (RBC) [Entitic vol] 90.8 fL Normal 80.0-94.0 [facility] ([place]) Comment on above: Performed By: #### H GMP, BILE #### [address] [address] Platelet mean volume (Bld) [Entitic vol] 11.8 fL High 7.4-10.4 [facility] ([place]) Comment on above: Performed By: #### H GMP, BILE #### [address] [address] Platelets (Bld) [#/Vol] 137 10 3/mcL Normal 130-400 [facility] ([place]) Comment on above: Performed By: #### H GMP, BILE #### [address] [address] RBC (Bld) [#/Vol] 4.26 10 6/mcL Normal 4.20-5.40 [facility] ([place]) Comment on above: Performed By: #### H GMP, BILE #### [address] [address] WBC (Bld) [#/Vol] 8.30 10 3/mcL Normal 4.60-10.80 [facility] ([place]) Comment on above: Performed By: #### H GMP, BILE #### Jeni [address] [address] .GFRon 07-11-2019 GFR Non- 129 ml/min/1.73sqm Normal [facility] ([place]) Comment on above: Result Comment: GFR Population [...] Performed By: #### C MP, GFR #### [address] [address] GFR 156 ml/min/1.73sqm Normal [facility] ([place]) Comment on above: Result Comment: GFR Population [...] Performed By: #### C MP, GFR #### [address] [address] CMPon 07-11-2019 Albumin [Mass/Vol] 3.3 G/dL Low 3.5-5.0 [facility] ([place]) Comment on above: Performed By: #### C MP, GFR #### [address] [address] Albumin/Globulin [Mass ratio] 0.9 {ratio} Low 1.1-2.5 [facility] ([place]) Comment on above: Performed By: #### C MP, GFR #### [address] [address] ALP [Catalytic activity/Vol] 67 U/L Normal 40-135 [facility] ([place]) Comment on above: Performed By: #### C MP, GFR #### [address] [address] ALT [Catalytic activity/Vol] 21 U/L Normal 10-35 [facility] ([place]) Comment on above: Performed By: #### C MP, GFR #### [address] [address] AST [Catalytic activity/Vol] 16 U/L Normal 10-40 [facility] ([place]) Comment on above: Performed By: #### C MP, GFR #### [address] [address] Bili Total 0.3 mg/dL Normal 0.2-1.0 [facility] ([place]) Comment on above: Result Comment: Use of this assay is not recommended for patients undergoing treatment with eltrombopag due to the potential for falsely elevated results. Performed By: #### C MP, GFR #### [address] [address] Calcium [Mass/Vol] 9.4 mg/dL Normal 8.4-10.2 [facility] ([place]) Comment on above: Performed By: #### C MP, GFR #### [address] [address] Chloride [Moles/Vol] 102 mmol/L Normal 98-107 [facility] ([place]) Comment on above: Performed By: #### C MP, GFR #### [address] [address] CO2 [Moles/Vol] 26 mmol/L Normal 22-29 [facility] ([place]) Comment on above: Performed By: #### C MP, GFR #### [address] [address] Creatinine [Mass/Vol] 0.58 mg/dL Normal 0.55-1.02 [facility] ([place]) Comment on above: Performed By: #### C MP, GFR #### [address] [address] Electrolyte Balance 10.0 mEq/L Normal [facility] ([place]) Comment on above: Performed By: #### C MP, GFR #### [address] [address] Globulin (S) [Mass/Vol] 3.7 G/dL Normal A [facility] ([place]) Comment on above: Performed By: #### C MP, GFR #### [address] [address] Glucose [Mass/Vol] 81 mg/dL Normal 70-105 [facility] ([place]) Comment on above: Performed By: #### C MP, GFR #### [address] [address] Potassium [Moles/Vol] 3.6 mmol/L Normal 3.5-5.1 [facility] ([place]) Comment on above: Performed By: #### C MP, GFR #### [address] [address] Protein [Mass/Vol] 7.0 G/dL Normal 6.4-8.2 [facility] ([place]) Comment on above: Performed By: #### C MP, GFR #### [address] [address] Sodium [Moles/Vol] 138 mmol/L Normal 136-145 [facility] ([place]) Comment on above: Performed By: #### C MP, GFR #### [address] [address] Urea nitrogen [Mass/Vol] 3 mg/dL Low 7-18 [facility] ([place]) Comment on above: Performed By: #### C MP, GFR #### Jeni [address] [address] Urea nitrogen/Creatinine [Mass ratio] 5 ratio Low 7-27 [facility] ([place]) Comment on above: Performed By: #### C MP, GFR #### Jeni [place] [id number] [place], [place] [address] .GFRon 06-20-2019 GFR 114 ml/min/1.73sqm Normal [facility] ([place]) Comment on above: Result Comment: GFR Population [...] By: #### G LU1P, BMP, GFR #### [address] [address] GFR Non- 94 ml/min/1.73sqm Normal [facility] ([place]) Comment on above: Result Comment: GFR Population [...] By: #### G LU1P, BMP, GFR #### [address] [address] BMPon 06-20-2019 Calcium [Mass/Vol] 8.7 mg/dL Normal 8.4-10.2 [facility] ([place]) Comment on above: Performed By: #### Jeramie DE LOS SANTOS1P, BMP, GFR #### [place] [id number] Chloride [Moles/Vol] 102 mmol/L Normal 98-107 [facility] ([place]) Comment on above: Performed By: #### Jeramie DE LOS SANTOS1P, BMP, GFR #### [place] [id number] CO2 [Moles/Vol] 25 mmol/L Normal 22-29 [facility] ([place]) Comment on above: Performed By: #### Jeramie DE LOS SANTOS1P, BMP, GFR #### [place] [address] Creatinine [Mass/Vol] 0.76 mg/dL Normal 0.55-1.02 [facility] ([place]) Comment on above: Performed By: #### Jeramie DE LOS SANTOS1P, BMP, GFR #### [place] [address] Electrolyte Balance 9.0 mEq/L Normal [facility] ([place]) Comment on above: Performed By: #### Jeramie DE LOS SANTOS1P, BMP, GFR #### [place] [id number] Glucose [Mass/Vol] 185 mg/dL High 70-140 [facility] ([place]) Comment on above: Performed By: #### G LU1P, BMP, GFR #### [address] [address] Potassium [Moles/Vol] 3.4 mmol/L Low 3.5-5.1 [facility] ([place]) Comment on above: Performed By: #### Jeraime LU1P, BMP, GFR #### [place] [id number] Sodium [Moles/Vol] 136 mmol/L Normal 136-145 [facility] ([place]) Comment on above: Performed By: #### G LU1P, BMP, GFR #### [facility] [address] [place] [address] Urea nitrogen [Mass/Vol] 3 mg/dL Low 10-05 [facility] ([place]) Comment on above: Performed By: #### G LU1P, BMP, GFR #### [facility] [address] [place] [address] Urea nitrogen/Creatinine [Mass ratio] 4 ratio Low 10-14 [facility] ([place]) Comment on above: Performed By: #### G LU1P, BMP, GFR #### [facility] [address] [place] [address] Vital Signs Date Time Vital Sign Value Performing Clinician Karely alex 05-09-2023 00:06-0500 Body temperature 98.2 [degF] [facility] 05-09-2023 00:06-0500 Diastolic blood pressure 76 mm[Hg] [facility] 05-09-2023 00:06-0500 Heart rate 99 /min [facility] 05-09-2023 00:06-0500 Respiratory rate 26 /min [facility] 05-09-2023 00:06-0500 SaO2% (BldA) [Mass fraction] 95 % [facility] 05-09-2023 00:06-0500 Systolic blood pressure 112 mm[Hg] [facility] 05-08-2023 21:54-0500 Body mass index (BMI) [Ratio] 34.3 kg/m2 [facility] 05-08-2023 21:54-0500 Body weight 90.71 kg [facility] 05-08-2023 21:39-0500 Body height 162.56 cm [facility] Encounters Encounter Date Encounter Type Care Provider Facility Start: 08-22-2024 End: 08-22-20[facility] Start: 07-26-2024 End: 07-26-2024 ambulatory Danitza Miedel [facility] Start: 06-13-2024 End: 06-13-2024 ambulatory [facility] Start: 02-01-2024 End: 02-01-2024 ambulatory [facility] Start: 12-20-2023 End: 12-20-2023 ambulatory [facility] Start: 11-07-2023 End: 11-07-2023 ambulatory [facility] Start: 11-06-2023 End: 11-06-2023 Emergency department patient visit Ashvin Trujillo Facility:[facility] Start: 09-29-2023 Encounter for genera l adult medical [facility] Start: 09-26-2023 End: 09-26-2023 ambulatory [facility] Start: 09-19-2023 End: 09-19-2023 ambulatory [facility] Facility:[facility] Start: 05-08-2023 End: 05-09-2023 Emergency department patient visit [facility] Work Phone: Start: 11-18-2022 End: 11-18-2022 ambulatory [facility] Work Phone: Start: 11-18-2022 End: 11-18-2022 Patient encounter procedure [facility] [place] Work Phone: Procedures Date Procedure Procedure Detail Performing Clinician Start: 05-08-2023 Plain chest X-ray Start: 05-08-2023 SARS-CoV-2, Influenz a & RSV (PCR) Start: 11-18-2022 Bacterial nucleic acid assay Start: 11-18-2022 Chlamydia trachomatis (PCR) Plan of Treatment Date Care Activity Detail Author Start: 05-08-2023 [facility] Start: 05-08-2023 [facility] Start: 05-08-2023 End: 05-08-2023 Blood culture [facility] Start: 05-08-2023 Bacteria identified in Blood by Culture Blood Culture [facility] Bacteria identified in Urine by Culture [facility] Patient Education ED Fever Contr ol (Adult) ED Influenza (Adult) [facility] Work Phone: Patient referral [facility] Work Phone: Payers Date Payer Category Payer Self-pay [id number] 2023 Unknown [id number] Medicaid MEDICAID [id number] Unknown [id number] Unknown [id number] 2.16.8 [id number] Unknown [id number] 2.16.8 [id number] Unknown [id number] 2.16.8 [id number] Unknown [id number] 2.16.8 [id number] Unknown [id number] 2.16.8 [id number] Unknown [id number] 2.16.8 [id number] Unknown [id number] 2.16.8 [id number] Unknown [id number] 2.16.8 [id number] Unknown [id number] 2.16.8 [id number] Unknown [id number] 2.16.8 [id number] Unknown [id number] 2.16.8 [id number] Social History Date Type Detail [facility] Work Phone: Start: 1995 Sex Assigned At Female [facility] Start: 05-08-2023 [facility] Mental Status Date Assessment Result Facility 05-08-2023 Cognitive function Level Of Cons ciousness Awake;Alert;Appropriate;Follow s Commands [facility] Work Phone: Progress note 05-18-2021 Note Date & Type Note Facility 05-18-2021 Note HNO ID: [id number] Author: Nisha Valdez APRN.SAND TECHNICIAN Service: ? Author Type: Nurse Practitioner Type: [...] (KETO-DIASTIX) strp 1 Strip four times daily. [id number]-[id number] tab Take 1 tablet by mouth once daily. With folic acid and DHA as covered by Insurance acetaminophen (TYLENOL) 325 mg cap Take by mouth. 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 [employer] provides no warranty or guarantee of the accuracy or completeness of information in this document.
== END 2024-10-22 19:50 | disposition home or self-care (01) ==
PROVIDERS: Emergency Provider Emergency Medicine; PCP Family Medicine; Visit Provider Emergency Medicine
DX: R50.9 Fever, unspecified (principal); B34.9 Viral infection, unspecified
CPT/HCPCS: 71046; 80048; 81001; 85025; 87631; 96360; 99283; A4216

== ENCOUNTER → 2025-02-22 | Outpatient (CLI) | payer MEDICAID, SELFPAY ==
--- OUTSIDE RECORDS SUMMARY | 2025-02-22 16:22 | XMS RPT_ITS | CCD ---
Author Organization [facility] Inform ion Partnership [facility] Care Team Providers Care Reexaminer Name Role Phone Ashvin Trujillo Attending Unavailable [facility] Primary Care Unavailable [facility] Primary Care Unavailable Chaim Chaparro Attending Unavailable Chaim Chaparro Referring Unavailable [facility] Referring Unavailable [facility] Primary Care Unavailable Chaim Chaparro Attending Unavailable [facility] Primary Care Unavailable [facility] Referring Unavailable Chaim Chaparro Attending Unavailable [facility] Primary Care Unavailable Beronica Anderson Attending Unavailable [facility] Primary Care Unavailable Beronica Anderson Attending Unavailable Beronica Anderson Attending Unavailable [facility] Primary Care Unavailable Beronica Anderson Attending Unavailable [facility] Primary [facility] Unavailable [facility] Primary Care Unavailable Beronica Anderson Attending Unavailable Medications Current Medications Medication Drug Class(es) [...] Active 75 MG PO TWICE A DAY 10 May 08, 2023 12:00am Problems Active Problems Problem Classification Problem Date Documented Da te Episodic/Chronic Anxiety disorders (3 sources) Anxiety; Translations: [Anxiety disorder, unspecified] Onset: 02-01-2024 05-08-2023 Chronic Fever of unknown origin (1 source) Fever, unspecified; Translations: [Fever, unspecified] Onset: 11-02-2024 Episodic Influenza (1 source) Influenza due to Influenza [...] [Encounter for pre-employment examination] Onset: 08-22-2024 Episodic Results Test Name Value Interpretation Reference Range Facility MR/BMS.BPon 11-28-2024 [facility] [address] [place] [address], [place] [address] OFFICE VISIT Date of Service: 11/28/24 MR#: [id number] Acct: [id number] Name: RICHA HERNANDEZ Rep #: [id number] : 1995 Provider: ROBERTO brooks Age/Sex: 29/F Location: [facility].BP Status: Signed Intake Vital Signs 10/22/24 15:52 11/28/24 15:47 Height 5 ft 4 in 5 ft 4 in Weight: 205 lb 9 oz 202 lb BMI 35.2 34.7 BP 134/88 H 128/85 H Blood Pressure Location Lt brachial Position Sitting Respiration 15 16 Pulse 130 H 102 H Pulse Source Monitor Temp 99 F Pulse Oximetry (%) 98 BP Intake Visit Reasons: Follow up Accompanied by: Self Allergies No Known Allergies Allergy (Verified 11/28/24 16:13) Medications ???Medication ???Instructions ???Recorded ???Confirmed ???Type cholecalciferol (vitamin D3) 25 25 mcg PO QDAY 12/20/23 11/28/24 H istory mcg (1,000 unit) capsule fluoxetine 20 mg/5 mL (4 mg/mL) 60 mg (15 mL) PO QDAY 30 days #450 11/28/24 11/28/24 Rx oral solution mL PFSH Medical History Gestational diabetes Physical exam, pre-employment Anxiety Ear infection URI (upper respiratory infection) Surgical History Hx of section Social History Smoking Status: Never smoker alcohol intake: never substance use type: does not use HPI History of Present Illness History provided by: patient HPI: Richa Hernandez is a 29 year old female patient presenting today for a follow up evaluation. Reports since last appointment her son's grandmother and this has been difficult for her to na vigate. Has been trying to navigate grief fro herself and her son. Reports she has started a new job at [employer] about 2-3 weeks ago which has been going well. Admits to feelings of depression less than half the time. Denies SI/HI. Admits to sometimes feelings of anxiety about her son not sleeping at night. Denies panic attacks. Sleep has been good, msotly. About 8 hours per night. Appetite has been good. Reports some changes in meal schedule due to new job. Previous similar episode: Yes Age of first [...] volume and regular prosody Mood OK Affect flat Thought Process linear, logical and coherent Thought [...] Plan (1) Generalized anxiety disorder: Plan: - Continue fluoxetine 60mg daily - follow up in 12 weeks (2) PTSD (post-traumatic stress disorder): Plan: - Continue fluoxetine 60mg daily (3) Depression: Qualifiers: Depression Type: unspecified Qualified Code(s): F32.A - Depression, unspecified Plan: - Continue fluoxetine 60mg daily Medications: Refilled (more content not included)... Normal [facility] Basic Metabolic Profile (BMP )on 10-22-2024 BUN/CRE 7.9 RATIO Low 10-20 [facility] Comment on above: Performed By: #### L 500.2500, L100.0100 #### [facility] [address] [place], [address] Calcium [Mass/Vol] 9.2 mg/dL Normal 7.6-11.0 [facility] Comment on above: Performed By: #### L 500.2500, L100.0100 #### [facility] [address] [facility] [place], [address] Chloride [Moles/Vol] 102 mmol/L Normal 98-108 [facility] Comment on above: Performed By: #### L 500.2500, L100.0100 #### [facility] [address] [place], [address] CO2 [Moles/Vol] 21.3 mmol/L Normal 21.0-32.0 [facility] Comment on above: Performed By: #### L 500.2500, L100.0100 #### [facility] [address] [place], [address] Creatinine [Mass/Vol] 0.80 mg/dL Normal 0.70-1.20 [facility] Comment on above: Performed By: #### L 500.2500, L100.0100 #### [facility] [address] [place], [address] ECRCL 115.89 ml/min Normal 50-250 [facility] Comment on above: Performed By: #### L 500.2500, L100.0100 #### [facility] [address] [place], [address] GAP 12 Normal 5-15 [facility] Comment on above: Performed By: #### L 500.2500, L100.0100 #### [facility] [address] [place], [address] GFR/1.73 sq M.predicted among non-blacks MDRD (S/P/Bld) [Vol rate/Area] 103 mL/min/{1.73_m2} Normal >60 [facility] Comment on above: Result Comment: mL/m in/1.73m2 CKD-EPI Creatinine Equation (2020) Performed By: #### L 500.2500, L100.0100 #### [facility] [address] [place], [address] Glucose [Mass/Vol] 108 mg/dL High 70-99 [facility] Comment on above: Performed By: #### L 500.2500, L100.0100 #### [facility] [address] [place], [address] Potassium [Moles/Vol] 3.6 mmol/L Normal 3.3-5.1 [facility] Comment on above: Performed By: #### L 500.2500, L100.0100 #### [facility] [address] [place], [address] Sodium [Moles/Vol] 135 mmol/L Normal 133-145 [facility] Comment on above: Performed By: #### L 500.2500, L100.0100 #### [facility] [address] [place], [address] Urea nitrogen [Mass/Vol] 6 mg/dL Normal 4-19 [facility] Comment on above: Performed By: #### L 500.2500, L100.0100 #### [facility] [address] [place], [address] CBC W/Diff, Automatedon 08-0 4-2025 Absolute Lymph 0.24 X10 3/uL Low 0.83-4.51 [facility] Comment on above: Performed By: #### L 500.2500, L100.0100 #### [facility] [address] [place], [address] Absolute Neut 5.8 X10 3/uL Normal 2.0-7.7 [facility] Comment on above: Performed By: #### L 500.2500, L100.0100 #### [facility] [address] [place], [address] Basophils/100 WBC (Bld) 0.3 % Normal 0-1 [facility] Comment on above: Performed By: #### L 500.2500, L100.0100 #### [facility] [address] [place], [address] Eosinophils/100 WBC (Bld) 0.0 % Normal 0-5 [facility] Comment on above: Performed By: #### L 500.2500, L100.0100 #### [facility] [address] [place], [address] Erythrocyte distribution width (RBC) [Ratio] 11.8 % Normal 11.6-14.6 [facility] Comment on above: Performed By: #### L 500.2500, L100.0100 #### [facility] [address] [place], [address] Hematocrit (Bld) [Volume fraction] 40.1 % Normal 37-47 [facility] Comment on above: Performed By: #### L 500.2500, L100.0100 #### [facility] [address] [place], [address] Hemoglobin (Bld) [Mass/Vol] 13.7 g/dL Normal 12.0-15.0 [facility] Comment on above: Performed By: #### L 500.2500, L100.0100 #### [facility] [address] [place], [address] IG% 0.100 Normal 0.0-0.9 [facility] Comment on above: Result Comment: IG% - Immature Granulocytes (promyelocytes, myelocytes and metamyelocytes) > 1% indicates that a LEFT SHIFT is Present. Performed By: #### L 500.2500, L100.0100 #### [facility] [address] [place], [address] Lymphocytes/100 WBC (Bld) 3.5 % Low 19-41 [facility] Comment on above: Performed By: #### L 500.2500, L100.0100 #### [facility] [address] [place], [address] MCH (RBC) [Entitic mass] 29.4 pg Normal 27.0-32.0 [facility] Comment on above: Performed By: #### L 500.2500, L100.0100 #### [facility] [address] [place], [address] MCHC (RBC) [Mass/Vol] 34.2 g/dL Normal 32-36 [facility] Comment on above: Performed By: #### L 500.2500, L100.0100 #### [facility] [address] [place], [address] MCV (RBC) [Entitic vol] 86.1 fL Normal 81-99 [facility] Comment on above: Performed By: #### L 500.2500, L100.0100 #### [facility] [address] [place], [address] Monocytes/100 WBC (Bld) 10.6 % High 0-10 [facility] Comment on above: Performed By: #### L 500.2500, L100.0100 #### [facility] [address] [place], [address] Neutrophils/100 WBC (Bld) 85.5 % High 47-70 [facility] Comment on above: Performed By: #### L 500.2500, L100.0100 #### [facility] [address] [place], [address] Nucleated RBC (Bld) [#/Vol] 0 10*3/uL Normal 0-5 [facility] Comment on above: Performed By: #### L 500.2500, L100.0100 #### [facility] [address] [place], [address] Platelet mean volume (Bld) [Entitic vol] 13.0 fL High 6.2-12.0 [facility] Comment on above: Performed By: #### L 500.2500, L100.0100 #### [facility] [address] [place], [address] Platelets (Bld) [#/Vol] 129 10*3/uL Low 150-450 [facility] Comment on above: Performed By: #### L 500.2500, L100.0100 #### [facility] [address] [place], [address] RBC (Bld) [#/Vol] 4.66 10*6/uL Normal 4.2-5.4 [facility] Comment on above: Performed By: #### L 500.2500, L100.0100 #### [facility] [address] [place], [address] RDW SD 36.6 fl Normal 35.1-43.9 [facility] Comment on above: Performed By: #### L 500.2500, L100.0100 #### [facility] [address] [place], [address] WBC (Bld) [#/Vol] 6.8 10*3/uL Normal 4.4-11.0 [facility] Comment on above: Performed By: #### L 500.2500, L100.0100 #### [facility] [address] [place], [address] Chest PA and Lateralon 10-22 Chest PA and Lateral [facility] [address] [place] [address] Chest PA and Lateral MR#: [id number] Acct: [id number] Name: RICHA HERNANDEZ Rep #: [id number] : 1995 F 29 From: Jony Baker MD PCP: Dr. Danitza Allred MD Status: [facility] ER Study: Chest PA and Lateral Date of Exam: 10/22/24 Exam# [id number] Ordering Dr: Ashvin Trujillo MD PROCEDURE: CHEST PA AND LATERAL 10/22/2024 REASON FOR EXAM: FEVER TECHNIQUE: CHEST PA AND LATERAL COMPARISON: 05/08/2023 FINDINGS: Lungs/Pleura: Suboptimal inspiration. No focal consolidation, lobar collapse, pneumothorax or pleural effusions. Unchanged subcentimeter nodular density in the lateral right lung base, which may be a small lung nodule/granuloma, or possibly within the overlying soft tissues. Heart/Mediastinum: Within normal limits. Bones/Soft tissues: Unremarkable. RAD/Chest PA and Lateral IMPRESSION: No evidence of acute pulmonary disease. Stable subcentimeter nodular density in the lateral right lung base may be a granuloma, unchanged from 05/08/2023. Reading Location: [id number] CC: Dr. Ashvin Trujillo MD; Dr. Danitza Allred MD Tilting Head Band Sawyer: Signed Normal [facility] Emergency Department Summary on 10-22-2024 Emergency Department Summary [facility] Medical Records Department [address] [place] [address] Emergency Department Summary 10/22/24 MR#: [id number] Acct: [id number] Name: RICHA HERNANDEZ Rep #: [id number] : 1995 29 From: Ashvin Trujillo MD PCP: Dr. Danitza Allred MD Status:REG ER Location: ED HPI History of Present Illness Chief Complaint: Fever Informant: patient Narrative Narrative: 29-year-old female fevers, chills, body aches, sore throat that started last night. Today the sore throat is better. She denies any cough, dyspnea, congestion, runny nose, dysuria or changes in urination, diarrhea, nausea or vomiting. No abdominal pain, chest discomfort, dyspnea. She states both of her ears hurt a little. She states her son had a fever 1 week ago for about a day and then he was better and for that reason was never seen by a healthcare professional. No other known sick contact. No travel out of the area or the country recently. No suspicious food intake. No recent antibiotics or other illness that she knows of. She states yesterday she was out in the sun all day working on trees, did not drink a lot of water and has not drank much water today to and feels like she may be dehydrated and requesting blood work and IV fluids. [facility] Medical History Gestational diabetes Physical exam, pre-employment Anxiety Ear infection URI (upper respiratory infection) Home Medications ???Medication ???Instructions ???Recorded ???Last Taken ???Type cholecalciferol (vitamin D3) 25 25 mcg PO QDAY 12/20/23 Unknown Hi story mcg (1,000 unit) capsule fluoxetine 20 mg/5 mL (4 mg/mL) 60 mg (15 mL) PO QDAY 30 days #450 07/17/24 Unknown Rx oral solution mL Allergy/AdvReac Type Severity Reaction Status Date / Time No Known Allergies Allergy Verified 10/22/24 15:54 Surgical History Hx of section Social History Smoking Status: Never smoker alcohol intake: never substance use type: does not use ROS ROS ED Constitutional Constitutional ED: Reports body ache(s), chills, fatigue, fever(s) and malaise Eyes Eyes: Denies change in vision or diplopia ENT ENT ED: Reports ear pain bilateral and sore throat; Denies rhinorrhea Cardiovascular Cardiovascular: Denies chest pain or palpitations Respiratory/Chest Respiratory/Chest: Denies cough or dyspnea Gastrointestinal Gastrointestinal: Denies abdominal pain, diarrhea, nausea or vomiting Genitourinary Genitourinary ED: Denies dysuria or hematuria Musculoskeletal Musculoskeletal: Denies back pain or neck pain Integumentary Denies abscess or rash Neurologic Neurologic: Denies headache(s), paresthesias or weakness Psychiatric Psychiatric: Denies suicidal thoughts EXAM Physical Exam Const Vital Signs: 10/22/24 15:52 10/22/24 16:41 10/22/24 16:42 Temperature 99 F 98.9 F Temperature Source Oral Oral Pulse Rate 130 H Respiratory Rate 15 Respiratory Effort Normal Non-Labored Respiratory Pattern Normal Blood Pressure 134/88 H Blood Pressure Mean 103 Pulse Ox 98 Oxygen Delivery Method Room Air Positive well nourished, well developed and obese General Appearance ED: well developed and NAD Nutritional Appearance: obese HEENT Reports TM's clear and moist mucous membranes HEENT Narrative: Facial flushing. Posterior oropharynx is clear and normal and symmetric there is no potato voice, stridor, or trismus. normocephalic and atraumatic Tympanic Membrane ED: Yes TM's clear bilateral Eyes PERRL and EOMs intact bilaterally Neck full ROM and supple Resp normal respiratory effort and clear to auscultation bilaterally Cardio regular rate, regular rhythm and no murmurs Rate: tachycardic GI non-tender and non-distended Auscultation: normoactive bowel sounds Palpation: soft Back/Spine no CVA tenderness General Back: other FROM Extremity normal to inspection General Extremety ED: Negative for edema, pulses abnormal or tenderness General Extremity: Negative for edema or pulses abnormal Neuro oriented x3, CN's II-XII intact bilaterally and no sensory deficits noted Sensorium / Orientation: awake and alert Motor Exam: strength 5/5 throughout Psych Mood Affect: anxious Skin no rashes or lesions noted and no wounds MDM MDM MDM Narrative Medical decision making narrative: Fever workup obtained, all the testing is negative. Two-view chest x-ray interpretation radiology in agreement. COVID/influenza/RSV swab negative, urine unremarkable, labs are normal there is no leukocytosis or bandemia. Patient's heart rate improved after IV fluids. She feels little better. She did no (more content not included)... Normal [facility] M100.678on 10-22-2024 M100.678 Pending SARS-CoV-2 (COVID 19) Negative INFLUENZA A Negative INFLUENZA B Negative RSV PCR Negative Normal [facility] Comment on above: Performed By: #### M 100.678, L400.0001 #### [facility] [address] [place], [address] Urinalysis, Completeon 10-22 BACTERIA 1+ /hpf Normal None Seen [facility] Comment on above: Order Comment: CLEAN CATCH Performed By: #### M 100.678, L400.0001 #### [facility] [address] [place], [address] EPI,SQUAMOUS 5-10 SEEN Normal 5-10 [facility] Comment on above: Order Comment: CLEAN CATCH Performed By: #### M 100.678, L400.0001 #### [facility] [address] [place], [address] RBC 0-5 SEEN Normal 0-5 [facility] Comment on above: Order Comment: CLEAN CATCH Performed By: #### M 100.678, L400.0001 #### [facility] [address] [place], [address] WBC 5-10 SEEN Normal 0-5 [facility] Comment on above: Order Comment: CLEAN CATCH Performed By: #### M 100.678, L400.0001 #### [facility] [address] [place], [address] Mucus Ql (Urine sed) 0 SEEN Normal [facility] Comment on above: Order Comment: CLEAN CATCH Performed By: #### M 100.678, L400.0001 #### [facility] [address] [place], [address] Office Visit Reporton 2024 Office Visit Report [facility] [address] [place] [address] OFFICE VISIT Date of Service: 08/22/24 MR#: [id number] Acct: [id number] Patient: RICHA HERNANDEZ Rep #: [id number] : 1995 Provider: JAQUELINE Bhakta Age/Sex: 29/F Location: [facility].NOW Status: Signed Intake Vital Signs 07/26/24 14:00 Height 5 ft 4 in Weight: 202 lb BMI 34.7 BP 120/82 H Blood Pressure Location Lt brachial Position Sitting Respiration 16 Pulse 91 Pulse Source Monitor Intake Visit Reasons: PE/QUANT/FIT TEST/[facility] JENNY Allergies No Known Allergies Allergy (Verified 07/26/24 14:04) Office Procedures [facility] Billing Sheet Testing Pre-Employment PE: Yes Respirator Fit Testing: Yes Occquant-Quantiferon : Yes Assessment and Plan Assessment and Plan Orders: Orders Quantiferon TB-Gold+ 08/22/24 Z02.1 - Encounter for pre-employment examination 08/28/24824 Date Chaim Shaffer Signature: Date (if applicable) CC: Normal [facility] Quantiferon TB-Gold+on 08-24 QFT MITOGEN ADRIANNE > 10.00 Normal . [facility] Comment on above: Performed By: #### L 3400.8000 #### [facility] [address] [place], [address] QFT NIL VALUE 0.01 IU/mL Normal . [facility] Comment on above: Performed By: #### L 3400.8000 #### [facility] [address] [place], [address] QFT TB GOLD+ Comment Normal . [facility] Comment on above: Result Comment: Alonzo tiFERON-TB [...] test. Performed By: #### L 3400.8000 #### [facility] [address] [place], [place], [id number] (352) QFT TB POS CRIT Negative Normal Negative [facility] Comment on above: Result Comment: No r [...] interferon gamma. Chemiluminescence immunoassay methodology Performed at: [facility] [id number] Bag Checker: Uvaldo Phillips PhD, Phone: [phone] Performed By: #### L 3400.8000 #### [facility] [address] [place], [place], [address] QFT TB1+ AG ADRIANNE 0.02 IU/mL Normal . [facility] Comment on above: Performed By: #### L 3400.8000 #### [facility] [address] [place], [address] QFT TB2+ AG ADRIANNE 0.02 IU/mL Normal . [facility] Comment on above: Performed By: #### L 3400.8000 #### [facility] [address] [place], [address] Urgent Care Visit Reporton 0 08-22-2024 Urgent Care Visit Report [facility] [address], [address] [place], [place] [address] OFFICE VISIT Date of Service: 08/22/24 MR#: [id number] Acct: [id number] Name: RICHA HERNANDEZ Rep #: [id number] : 1995 Provider: JAQUELINE Bhakta Age/Sex: 29/F Location: [facility].NOW Status: Signed Intake Vital Signs 07/26/24 14:00 Height 5 ft 4 in Weight: 202 lb BMI 34.7 BP 120/82 H Blood Pressure Location Lt brachial Position Sitting Respiration 16 Pulse 91 Pulse Source Monitor Intake Visit Reasons: PE/NON DOT/PHYSICAL/[facility] Allergies No Known Allergies Allergy (Verified 07/26/24 14:04) [facility] Medical History (Updated 08/22/24 @ 15:03 by [...] Yes Coding Level of Care Code Attention Tie Bucker Diagnoses Physical exam, pre-employment Z02.1 Assessment and Plan Assessment and Plan (1) Physical exam, pre-employment: Status: Acute 08/22/24 1513 Date Chaim Shaffer Signature: Date (if applicable) CC: Normal [facility] MR/BMS.BPon 07-26-2024 MR/BMS.BP [address], [address] [place] [address] OFFICE VISIT Date of Service: 07/26/24 MR#: [id number] Acct: [id number] Name: RICHA HERNANDEZ Rep #: [id number] : 1995 Provider: ROBERTO brooks Age/Sex: 29/F Location: [facility].BP Status: Signed Intake Vital Signs 06/13/24 13:22 [...] job. Is planning to start working at [employer] because she is unable to work day [...] (1) G (more content not included)... 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 Is planning a trip to [place] this weekend. Denies SI/HI. Does struggle with [...] Code(s): F32.A (more content not included)... Normal [facility] MR/BMS.BPon 02-01-2024 MR/BMS.BP [facility] [facility], [address] [place] [address] OFFICE VISIT Date of Service: 02/01/24 MR#: [id number] Acct: [id number] Name: RICHA HERNANDEZ Rep #: [id number] : 1995 Provider: ROBERTO brooks Age/Sex: 28/F [place] [facility] [place]: Signed Intake Vital Signs 12/20/23 10:22 [...] think it is going to be beneficial. [place] she was doing well enough but in [...] oriented x3 (more content not included)... Normal [facility] MR/BPon 12-20-2023 MR/BMS.BP [facility] [address] [address], [address] [place] [address] OFFICE VISIT Date of Service: 12/20/23 MR#: [id number] Acct: [id number] Name: RICHA HERNANDEZ Rep #: [id number] : 1995 Provider: ROBERTO brooks Age/Sex: 28/F Location: [facility] [place] Status: Signed Intake Vital Signs 11/07/23 14:17 [...] up evaluation. Did start her position at [employer] and ended up leaving after 2 weeks due to feeling like she was not being treated well. Is working at [email or web address] now and has been for about 2 [...] good Exam (more content not included)... Normal [facility] Absolute lymphocyte countOrd ered By: Silvio Trujillo on 05-08-2023 Lymphocytes Auto (Unsp spec) [#/Vol] 0.46 10*3/uL 0.83-4.51 [facility] Activated partial thrombopla stin time (aPTT) in platelet poor plasma by coagulation aOrdered By: Silvio Trujillo on 05-08-2023 aPTT Coag (PPP) [Time] 28.1 s 24.1-36.2 [facility] Amorphous sediment detection in urine sediment by light microscopyOrdered By: Silvio Trujillo on 05-08-2023 Amorphous sediment LM Ql (Urine sed) 1+ PHOS [facility] Automated lymphocyte count a s percentage of total leukocytesOrdered By: Silvio Trujillo on 05-08-2023 Lymphocytes/100 WBC Auto (Unsp spec) 9.3 % 19-41 [facility] Basophil percentageOrdered B y: Silvio Trujillo on 05-08-2023 Basophil percentage 0 SEEN /hpf 0-5 [facility] Basophils/100 WBC (Bld) 0.4 % 0-1 [facility] Chloride [Moles/Vol] 107 mmol/L 98-107 [facility] Eosinophils/100 WBC (Bld) 0.6 % 0-5 [facility] Glucose [Mass/Vol] 105 mg/dL 74-106 [facility] Comment on above: Fasting Glucose resu lt from 100 to 125 mg/dL suggests IMPAIRED HOMEOSTASIS per A.D.A. criteria. Hemoglobin (Bld) [Mass/Vol] 13.5 g/dL 12.0-15.0 [facility] Lactate [Moles/Vol] 1.3 mmol/L 0.4-2.0 [facility] Monocytes/100 WBC (Bld) 16.9 % 0-10 [facility] Neutrophils (Bld) [#/Vol] 3.6 10*3/uL 2.0-7.7 [facility] Neutrophils/100 WBC (Bld) 72.6 % 47-70 [facility] Potassium [Moles/Vol] 3.6 mmol/L 3.5-5.1 [facility] Sodium [Moles/Vol] 136 mmol/L 136-145 [facility] WBC (Bld) [#/Vol] 5.0 10*3/uL 4.4-11.0 [facility] Bilirubin Test strip Ql (U)O rdered By: Silvio Trujillo on 05-08-2023 Bilirubin Ql (U) Negative Negative [facility] Determination of erythrocyte mean corpuscular volume (MCV)Ordered By: Silvio Trujillo on 05-08-2023 MCV (RBC) [Entitic vol] 84.8 fL 81-99 [facility] Erythrocyte distribution wid th ratioOrdered By: Silvio Trujillo on 05-08-2023 Erythrocyte distribution width (RBC) [Ratio] 12.0 % 11.6-14.6 [facility] Erythrocyte distribution wid th standard deviationOrdered By: Silvio Trujillo on 05-08-2023 Erythrocyte distribution width (RBC) [Entitic vol] 37.1 fL 35.1-43.9 [facility] Hematocrit Auto (Bld) [Volum e fraction]Ordered By: Silvio Trujillo on 05-08-2023 Hematocrit (Bld) [Volume fraction] 40.8 % 37-47 [facility] Immature granulocytes/100 WB C Auto (Bld)Ordered By: Silvio Trujillo on 05-08-2023 Immature granulocytes/100 WBC (Bld) 0.200 % 0.0-0.9 [facility] Comment on above: IG% - Immature Granu locytes (promyelocytes, myelocytes and metamyelocytes) > 1% indicates that a LEFT SHIFT is Present. Ketones Test strip Ql (U)Ord ered By: Silvio Trujillo on 05-08-2023 Ketones Ql (U) Negative Negative [facility] Laboratory - Chemistry and C hemistry - challengeOrdered By: Silvio Trujillo on 05-08-2023 CO2 [Moles/Vol] 24.0 mmol/L 21.0-32.0 [facility] Urea nitrogen/Creatinine [Mass ratio] 9.7 mg/mg 10-20 [facility] Laboratory - CoagulationOrde red By: Silvio Trujillo on 05-08-2023 INR Coag (Bld) [Relative time] 1.1 {INR} [facility] PT Coag (PPP) [Time] 13.8 s 11.7-14.9 [facility] Laboratory - Hematology and Cell countsOrdered By: Silvio Trujillo on 05-08-2023 MCH (RBC) [Entitic mass] 28.1 pg 27.0-32.0 [facility] MCHC (RBC) [Mass/Vol] 33.1 g/dL 32-36 [facility] Nucleated RBC/100 WBC (Bld) [Ratio] 0 % 0-5 [facility] Platelet mean volume (Bld) [Entitic vol] 13.5 fL 6.2-12.0 [facility] Platelets (Bld) [#/Vol] 140 10*3/uL 150-450 [facility] Laboratory - Microbiology an d Antimicrobial susceptibilityOrdered By: Silvio Trujillo on 05-08-2023 SARS-CoV-2 (COVID-19) RNA STEPHANIE+probe Ql (Unsp spec) Influenzae A [facility] Mucus LM Ql (Urine sed)Order ed By: Silvio Trujillo on 05-08-2023 Mucus Ql (Urine sed) 0 SEEN /hpf [facility] Nitrite Test strip Ql (U)Ord ered By: Silvio Trujillo on 05-08-2023 Nitrite Ql (U) Negative Negative [facility] No Panel InformationOrdered By: Silvio Trujillo on 05-08-2023 Urine RBC 0 SEEN /hpf 0-5 [facility] Estimated Creatinine Clearance Calc 100.01 ml/min [facility] Estimated GFR (MDRD) Amer 94 mL/min >60 [facility] Comment on above: GFR Calc Estimated GFR (MDRD) Non-Af Amer 77 mL/min >60 [facility] Comment on above: Non- GFR Calc Protein Test strip Ql (U)Ord ered By: Silvio Trujillo on 05-08-2023 Protein Ql (U) Negative Negative [facility] RBC Auto (Bld) [#/Vol]Ordere d By: Silvio Trujillo on 05-08-2023 RBC (Bld) [#/Vol] 4.81 10*6/uL 4.2-5.4 [facility] Serum or plasma calcium boo urement (mass/volume)Ordered By: Silvio Trujillo on 05-08-2023 Calcium [Mass/Vol] 9.1 mg/dL 8.5-10.1 [facility] Serum or plasma creatinine m easurement (mass/volume)Ordered By: Silvio Trujillo on 05-08-2023 Creatinine [Mass/Vol] 0.93 mg/dL 0.55-1.02 [facility] Comment on above: The validity of the calculated GFR & GFRAA in patients over 70 years has not been determined. Clinical correlation is essential. Serum or plasma urea nitroge n measurement (mass/volume)Ordered By: Silvio Trujillo on 05-08-2023 Urea nitrogen [Mass/Vol] 9 mg/dL 7 [facility] Squamous epithelial cells de tection in urine sediment by light microscopyOrdered By: Silvio Trujillo on 05-08-2023 Epithelial cells.squamous LM Ql (Urine sed) 5-10 SEEN /hpf 5-10 [facility] Thin prep Papanicolaou smear with manual screeningOrdered By: Silvio Trujillo on 05-08-2023 Thin prep Papanicolaou smear with manual screening 5 5-15 [facility] Urine blood detectionOrdered By: Silvio Trujillo on 05-08-2023 RBC Ql (U) Negative Negative [facility] Urine clarityOrdered By: Mirtha Trujillo on 05-08-2023 Clarity (U) Sl. Cloudy Clear [facility] Urine color determinationOrd ered By: Silvio Trujillo on 05-08-2023 Color (U) Yellow Yellow [facility] Urine glucose detectionOrder ed By: Silvio Trujillo on 05-08-2023 Glucose Ql (U) Normal mg/dl Normal [facility] Urine leukocyte esterase det ection by dipstickOrdered By: Silvio Trujillo on 05-08-2023 Leukocyte esterase Test strip Ql (U) Negative Negative [facility] Urine pHOrdered By: Silvio melendrez on 05-08-2023 pH (U) 8.0 [pH] 5.0 - 8.0 [facility] Urine sediment bacteria coun t by microscopy (number/high power field)Ordered By: Silvio Trujillo on 05-08-2023 Bacteria LM.HPF (Urine sed) [#/Area] 0 /[HPF] None Seen [facility] Urine specific gravity measu rementOrdered By: Silvio Trujillo on 05-08-2023 Specific gravity (U) [Rel density] 1.010 1.002-1.030 [facility] Urine urobilinogen measureme ntOrdered By: Silvio Trujillo on 05-08-2023 Urobilinogen Ql (U) Normal mg/dl Normal [facility] Absolute lymphocyte countOrd ered By: Danitza Allred on 11-18-2022 Lymphocytes Auto (Unsp spec) [#/Vol] 1.67 10*3/uL 0.83-4.51 [facility] Basophil percentageOrdered B y: Danitza Allred on 11-18-2022 Basophils/100 WBC (Bld) 0.5 % 0-1 [facility] Bilirubin [Mass/Vol] 0.40 mg/dL 0.20-1.00 [facility] Comment on above: For patients on eltr ombopag therapy, use of Dimension [place] TBIL is not recommended. Chloride [Moles/Vol] 107 mmol/L 98-107 [facility] Eosinophils/100 WBC (Bld) 2.3 % 0-5 [facility] Glucose [Mass/Vol] 122 mg/dL 74-106 [facility] Comment on above: Fasting Glucose resu lt from 100 to 125 mg/dL suggests IMPAIRED HOMEOSTASIS per A.D.A. criteria. Neutrophils (Bld) [#/Vol] 5.7 10*3/uL 2.0-7.7 [facility] Neutrophils/100 WBC (Bld) 69.2 % 47-70 [facility] Potassium [Moles/Vol] 3.9 mmol/L 3.5-5.1 [facility] Protein [Mass/Vol] 7.7 g/dL 6.4-8.2 [facility] Sodium [Moles/Vol] 137 mmol/L 136-145 [facility] WBC (Bld) [#/Vol] 8.2 10*3/uL 4.4-11.0 [facility] Blood erythrocytes count (nu mber/volume)Ordered By: Danitza Allred on 11-18-2022 RBC (Bld) [#/Vol] 5.02 10*6/uL 4.2-5.4 [facility] Blood hemoglobin measurement (mass/volume)Ordered By: Danitza Allred on 11-18-2022 Hemoglobin (Bld) [Mass/Vol] 14.4 g/dL 12.0-15.0 [facility] Blood lymphocytes/100 leukoc ytesOrdered By: Danitza Allred on 11-18-2022 Lymphocytes/100 WBC (Bld) 20.4 % 19-41 [facility] Blood monocytes/100 leukocyt esOrdered By: Danitza Allred on 11-18-2022 Monocytes/100 WBC (Bld) 7.4 % 0-10 [facility] Blood platelet mean volumeOr dered By: Danitza Allred on 11-18-2022 Platelet mean volume (Bld) [Entitic vol] 13.4 fL 6.2-12.0 [facility] Determination of erythrocyte mean corpuscular volume (MCV)Ordered By: Danitza Allred on 11-18-2022 MCV (RBC) [Entitic vol] 87.6 fL 81-99 [facility] Hematocrit Auto (Bld) [Volum e fraction]Ordered By: Danitza Allred on 11-18-2022 Hematocrit (Bld) [Volume fraction] 44.0 % 37-47 [facility] Laboratory - Chemistry and C hemistry - challengeOrdered By: Danitza Allred on 11-18-2022 ALP [Catalytic activity/Vol] 88 U/L 45-117 [facility] ALT [Catalytic activity/Vol] 91 U/L 13-56 [facility] CO2 [Moles/Vol] 24.0 mmol/L 21.0-32.0 [facility] Globulin (S) [Mass/Vol] 4.0 g/dL 2.2-4.2 [facility] Urea nitrogen/Creatinine [Mass ratio] 13.5 mg/mg 10-20 [facility] Laboratory - Hematology and Cell countsOrdered By: Danitza Allred on 11-18-2022 Erythrocyte distribution width (RBC) [Entitic vol] 38.5 fL 35.1-43.9 [facility] Erythrocyte distribution width (RBC) [Ratio] 12.0 % 11.6-14.6 [facility] Immature granulocytes/100 WBC (Bld) 0.200 % 0.0-0.9 [facility] Comment on above: IG% - Immature Granu locytes (promyelocytes, myelocytes and metamyelocytes) > 1% indicates that a LEFT SHIFT is Present. MCH (RBC) [Entitic mass] 28.7 pg 27.0-32.0 [facility] Nucleated RBC/100 WBC (Bld) [Ratio] 0 % 0-5 [facility] MCHC Auto (RBC) [Mass/Vol]Or dered By: Danitza Allred on 11-18-2022 MCHC (RBC) [Mass/Vol] 32.7 g/dL 32-36 [facility] Neisseria gonorrhoeae genita l PCROrdered By: Danitza Allred on 11-18-2022 N. gonorrhoeae DNA STEPHANIE+probe Ql (Genital specimen) [facility] No Panel InformationOrdered By: Danitza Allred on 11-18-2022 Chlamydia trachomatis (PCR) [facility] Estimated GFR (MDRD) Amer 90 mL/min >60 [facility] Comment on above: GFR Calc Estimated GFR (MDRD) Non-Af Amer 74 mL/min >60 [facility] Comment on above: Non- GFR Calc Platelets bldOrdered By: Jonny Allred on 11-18-2022 Platelets (Bld) [#/Vol] 197 10*3/uL 150-450 [facility] Serum or plasma albumin boo urement (mass/volume)Ordered By: Danitza Allred on 11-18-2022 Albumin [Mass/Vol] 3.7 g/dL 3.2-5.0 [facility] Serum or plasma albumin/glob ulin mass ratioOrdered By: Danitza Allred on 11-18-2022 Albumin/Globulin [Mass ratio] 0.9 {ratio} 0.9-2.4 [facility] Serum or plasma calcium boo urement (mass/volume)Ordered By: Danitza Allred on 11-18-2022 Calcium [Mass/Vol] 9.2 mg/dL 8.5-10.1 [facility] Serum or plasma creatinine m easurement (mass/volume)Ordered By: Danitza Allred on 11-18-2022 Creatinine [Mass/Vol] 0.96 mg/dL 0.55-1.02 [facility] Comment on above: The validity of the calculated GFR & GFRAA in patients over 70 years has not been determined. Clinical correlation is essential. Serum or plasma urea nitroge n measurement (mass/volume)Ordered By: Danitza Allred on 11-18-2022 Urea nitrogen [Mass/Vol] 13 mg/dL 7-18 [facility] Thin prep Papanicolaou smear with manual screeningOrdered By: Danitza Allred on 11-18-2022 Thin prep Papanicolaou smear with manual screening 48 U/L 15-37 [facility] Thin prep Papanicolaou smear with manual screening 6 5-15 [facility] CNOVon 05-18-2021 CNOV Office Visit (UCWSTR) RICHA HERNANDEZ ([id number]) 1995 F Date Time Provider Department 05/18/21 3:30 PM NISHA VALDEZ WSTR During your visit today, we recorded the [...] Discussed expected course of illness Nisha Valdez APRN.MESSENGER OFFICE Insect Bites Insect bites can cause red [...] itching, you can take diphenhydramine (Benadryl), an siot-kna-wzolzjh medication. Adults may need 50 or 75 mg, and children may need two or three times the child's dose printed on the bottle. Often, brown spots remain after the bumps heal. This is just a temporary color change, and scarring generally does not occur except when bites become infected. Nisha Valdez APRN.MESSENGER OFFICE 05/18/2021 3:53 PM Signed Subjective HPI Richa [...] four times (more content not included)... Normal [facility] CURon 01-02-2020 CUR . MICRO - Microbiology PROCEDURE: Urine Culture [...] Locations *1: This test was performed at: [address], [address] [place] [address] Normal [facility] ([place]) Comment on above: Performed By: #### C MP, GFR #### [address] [address] .Auto Diffon 12-31-2019 Ammonia (P) [Mass/Vol] 0.50 10 3/mcL Normal 0.15-1.00 [facility] ([place]) Comment on above: Performed By: #### C MP, GFR #### [address] [address] Basophils (Bld) [#/Vol] 0.00 10 3/mcL Normal 0.00-0.19 [facility] ([place]) Comment on above: Performed By: #### C MP, GFR #### [address] [address] Basophils/100 WBC (Bld) 0.2 % Normal 0.0-2.5 A [facility] ([place]) Comment on above: Performed By: #### C MP, GFR #### [address] [address] Eosinophils (Bld) [#/Vol] 0.10 10 3/mcL Normal 0.00-0. 40 [facility] ([place]) Comment on above: Performed By: #### C MP, GFR #### [address] [address] Eosinophils/100 WBC (Bld) 1.5 % Normal 0.0-7.0 [facility] ([place]) Comment on above: Performed By: #### C MP, GFR #### [address] [address] Lymphocytes (Bld) [#/Vol] 0.90 10 3/mcL Normal 0.77-3. 85 [facility] ([place]) Comment on above: Performed By: #### C MP, GFR #### [address] [address] Lymphocytes/100 WBC (Bld) 10.2 % Normal 10.0-50.0 [facility] ([place]) Comment on above: Performed By: #### C MP, GFR #### [address] [address] Monocytes/100 WBC (Bld) 5.6 % Normal 1.7-13.0 A [facility] ([place]) Comment on above: Performed By: #### C MP, GFR #### [address] [address] Neutrophils/100 WBC (Bld) 82.5 % High 37.0-80.0 [facility] ([place]) Comment on above: Performed By: #### C MP, GFR #### [address] [address] .GFRon 12-31-2019 GFR 113 ml/min/1.73sqm Normal [facility] ([place]) Comment on above: Result Comment: GFR [...] By: #### C MP, GFR #### Jeni [address] [address] GFR Non- 93 ml/min/1.73sqm Normal [facility] ([place]) Comment on above: Result Comment: GFR Population [...] Performed By: #### C MP, GFR #### [address] [address] .NEUABSon 12-31-2019 Neutrophils (Bld) [#/Vol] 7.20 10 3/mcL High 2.85-6. 16 [facility] ([place]) Comment on above: Performed By: #### C MP, GFR #### [address] [address] .Urinalysis Microscopic (AO) on 12-31-2019 RBC (U) [#/Vol] LOADED Abnormal None Seen [facility] ([place] Comment on above: Performed By: #### C MP, GFR #### [address] [address] UA Bacteria Trace Abnormal [facility] ([place]) Comment on above: Performed By: #### C MP, GFR #### Jeni [address] [address] UA Mucous 1+ /hpf Normal [facility] ([place] Comment on above: Performed By: #### C MP, GFR #### [address] [address] UA Squam Epithelial 0-5 Abnormal None Seen [facility] ([place] Comment on above: Performed By: #### C MP, GFR #### [address] [address] UA WBC 5-10 Abnormal None Seen [facility] ([place] Comment on above: Performed By: #### C MP, GFR #### [address] [address] CBCon 12-31-2019 Erythrocyte distribution width (RBC) [Ratio] 13.2 % Normal 11.5-14.5 [facility] ([place]) Comment on above: Performed By: #### C MP, GFR #### [address] [address] Hematocrit (Bld) [Volume fraction] 36.1 % Low 37.0-47.0 [facility] ([place] Comment on above: Performed By: #### C MP, GFR #### [address] [address] Hemoglobin (Bld) [Mass/Vol] 12.1 G/dL Normal 12.0-16.0 [facility] ([place] Comment on above: Performed By: #### C MP, GFR #### [address] [address] MCH (RBC) [Entitic mass] 30.4 pg Normal 27.0-31.2 [facility] ([place] Comment on above: Performed By: #### C MP, GFR #### [address] [address] MCHC (RBC) [Mass/Vol] 33.7 G/dL Normal 33.0-37.0 [facility] ([place] Comment on above: Performed By: #### C MP, GFR #### [address] [address] MCV (RBC) [Entitic vol] 90.4 fL Normal 80.0-94.0 A [facility] ([place]) Comment on above: Performed By: #### C MP, GFR #### [address] [address] Platelet mean volume (Bld) [Entitic vol] 11.2 fL High 7.4-10.4 [facility] ([place]) Comment on above: Performed By: #### C MP, GFR #### [address] [address] Platelets (Bld) [#/Vol] 138 10 3/mcL Normal 130-400 [facility] ([place] Comment on above: Performed By: #### C MP, GFR #### [address] [address] RBC (Bld) [#/Vol] 3.99 10 6/mcL Low 4.20-5.40 [facility] ([place]) Comment on above: Performed By: #### C MP, GFR #### [address] [address] WBC (Bld) [#/Vol] 8.70 10 3/mcL Normal 4.60-10.80 [facility] ([place] Comment on above: Performed By: #### C MP, GFR #### [address] [address] CMPon 12-31-2019 Albumin [Mass/Vol] 2.6 G/dL Low 3.5-5.0 [facility] ([place]) Comment on above: Performed By: #### C MP, GFR #### Jeni [address] [address] Albumin/Globulin [Mass ratio] 0.7 {ratio} Low 1.1-2.5 [facility] ([place] Comment on above: Performed By: #### C MP, GFR #### [address] [address] ALP [Catalytic activity/Vol] 153 U/L High 40-135 [facility] ([place] Comment on above: Performed By: #### C MP, GFR #### Jeni [address] [address] ALT [Catalytic activity/Vol] 33 U/L Normal 14-59 [facility] ([place] Comment on above: Performed By: #### C MP, GFR #### [address] [address] AST [Catalytic activity/Vol] 47 U/L High 10-40 [facility] ([place] Comment on above: Performed By: #### C MP, GFR #### [address] [address] Bili Total 0.3 mg/dL Normal 0.2-1.0 [facility] ([place] Comment on above: Result Comment: Use of this assay is not recommended for patients undergoing treatment with eltrombopag due to the potential for falsely elevated results. Performed By: #### C MP, GFR #### [address] [address] Calcium [Mass/Vol] 9.0 mg/dL Normal 8.4-10.2 [facility] ([place] Comment on above: Performed By: #### C MP, GFR #### [address] [address] Chloride [Moles/Vol] 103 mmol/L Normal 98-107 [facility] ([place] Comment on above: Performed By: #### C MP, GFR #### [address] [address] CO2 [Moles/Vol] 27 mmol/L Normal 22-29 [facility] ([place] Comment on above: Performed By: #### C MP, GFR #### [address] [address] Creatinine [Mass/Vol] 0.77 mg/dL Normal 0.55-1.02 [facility] [place] Comment on above: Performed By: #### C MP, GFR #### [address] [address] Electrolyte Balance 9.0 mEq/L Normal [facility] ([place] Comment on above: Performed By: #### C MP, GFR #### [address] [address] Globulin (S) [Mass/Vol] 3.7 G/dL Normal A [facility] ([place] Comment on above: Performed By: #### C MP, GFR #### Jeni [address] [address] Glucose [Mass/Vol] 97 mg/dL Normal 70-105 [facility] ([place] Comment on above: Performed By: #### C MP, GFR #### Jeni [address] [address] Potassium [Moles/Vol] 3.8 mmol/L Normal 3.5-5.1 [facility] [place] Comment on above: Performed By: #### C MP, GFR #### [address] [address] Protein [Mass/Vol] 6.3 G/dL Low 6.4-8.2 [facility] ([place] Comment on above: Performed By: #### C MP, GFR #### [address] [address] Sodium [Moles/Vol] 139 mmol/L Normal 136-145 [facility] ([place] Comment on above: Performed By: #### C MP, GFR #### [address] [address] Urea nitrogen [Mass/Vol] 5 mg/dL Low 7-18 [facility] ([place] Comment on above: Performed By: #### C MP, GFR #### Jeni [address] [address] Urea nitrogen/Creatinine [Mass ratio] 6 ratio Low 7-27 [facility] ([place] Comment on above: Performed By: #### C MP, GFR #### Jeni [address] [address] Final Surgical Pathology Rep [facility] 12-31-2019 Final Surgical Pathology Report . 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 COMMENT: [facility] - [id number] CLINICAL INFORMATION: Procedure: SECTION Preoperative diagnosis: NON-REASSURING [...] measuring 3 x 2 x 0.2 cm. Vacuum Caster sections in 3 cassettes. Dictated by NORBERTO REN MICROSCOPIC DESCRIPTION: Slides reviewed. Electronically Signed by Pathology Report verified by [facility] Electronically signed by PAULA SAMUEL DO Sign out Date: 12/31/2019 13:09 Performing Lab: [facility], [address] [place] [address] Normal [facility] ([place]) Comment on above: Performed By: #### C MP, GFR #### [address] [address] UAon 12-31-2019 Color (U) Yellow Normal [facility] ([place]) Comment on above: Performed By: #### C MP, GFR #### [address] [address] Glucose (U) [Mass/Vol] Negative Normal Negative [facility] ([place]) Comment on above: Performed By: #### C MP, GFR #### [address] [address] Ketones Ql (U) Negative Normal Negative [facility] ([place]) Comment on above: Performed By: #### C MP, GFR #### Jeni [address] [address] UA Appear Slightly Cloudy Abnormal Clear [facility] ([place] Comment on above: Performed By: #### C MP, GFR #### Jeni [address] [address] UA Blood Large Abnormal Negative [facility] ([place] Comment on above: Performed By: #### C MP, GFR #### Jeni [address] [address] UA Leuk Est Trace Abnormal Negative [facility] ([place]) Comment on above: Performed By: #### C MP, GFR #### Jeni [address] [address] UA Nitrite Negative Normal Negative [facility] ([place] Comment on above: Performed By: #### C MP, GFR #### [address] [address] UA pH 7.0 Normal 5.0 - 8.0 [facility] ([place] Comment on above: Performed By: #### C MP, GFR #### [address] [address] UA Protein Trace Normal Negative [facility] ([place] Comment on above: Performed By: #### C MP, GFR #### [address] [address] UA Spec Grav 1.025 Normal 1.015-1.025 [facility] ([place]) Comment on above: Performed By: #### C MP, GFR #### [address] [address] UA Specimen Type Clean Catch Normal [facility] ([place]) Comment on above: Performed By: #### C MP, GFR #### [address] [address] UA Urobilinogen 0.2 E.U./dL Normal 0.2-1.0 [facility] ([place]) Comment on above: Performed By: #### C MP, GFR #### Jeni [address] [address] Urobilinogen Qn (U) Negative Normal Negative [facility] ([place] Comment on above: Performed By: #### C MP, GFR #### Jeni [address] [address] US PELVIS NON-OB LIMITEDon 1 US PELVIS [...] By: Vinnie Ventura MD Electronically Signed By: Cladue Vergara DO Dictated Date: 12/30/2019 11:25:45 PM Prelim Date: 12/30/2019 11:30:55 PM Sign Date: 12/30/2019 11:36:10 PM Ordering Provider:Nikko Urbina [facility] ([place]) .Auto Diffon 12-29-2019 Ammonia (P) [Mass/Vol] 0.80 10 3/mcL Normal 0.15-1.00 [facility] ([place] Comment on above: Performed By: #### C MP, GFR #### Jeni [address] [address] Basophils (Bld) [#/Vol] 0.00 10 3/mcL Normal 0.00-0.19 [facility] ([place] Comment on above: Performed By: #### C MP, GFR #### [address] [address] Basophils/100 WBC (Bld) 0.2 % Normal 0.0-2.5 A [facility] ([place]) Comment on above: Performed By: #### C MP, GFR #### [address] [address] Eosinophils (Bld) [#/Vol] 0.00 10 3/mcL Normal 0.00-0. 40 [facility] ([place]) Comment on above: Performed By: #### C MP, GFR #### [address] [address] Eosinophils/100 WBC (Bld) 0.4 % Normal 0.0-7.0 [facility] ([place]) Comment on above: Performed By: #### C MP, GFR #### [address] [address] Lymphocytes (Bld) [#/Vol] 1.20 10 3/mcL Normal 0.77-3. 85 [facility] ([place]) Comment on above: Performed By: #### C MP, GFR #### [address] [address] Lymphocytes/100 WBC (Bld) 13.1 % Normal 10.0-50.0 [facility] ([place] Comment on above: Performed By: #### C MP, GFR #### [address] [address] Monocytes/100 WBC (Bld) 8.3 % Normal 1.7-13.0 A [facility] ([place]) Comment on above: Performed By: #### C MP, GFR #### [address] [address] Neutrophils/100 WBC (Bld) 78.0 % Normal 37.0-80.0 [facility] ([place]) Comment on above: Performed By: #### C MP, GFR #### [address] [place] [address] .NEUABSon 12-29-2019 Neutrophils (Bld) [#/Vol] 7.10 10 3/mcL High 2.85-6. 16 [facility] ([place] Comment on above: Performed By: #### C MP, GFR #### Jeni [address] [address] CBCon 12-29-2019 Erythrocyte distribution width (RBC) [Ratio] 13.7 % Normal 11.5-14.5 [facility] ([place] Comment on above: Performed By: #### G LU1P, BMP, GFR #### [address] [address] Hematocrit (Bld) [Volume fraction] 32.2 % Low 37.0-47.0 [facility] ([place] Comment on above: Performed By: #### Jeramie LU1P, BMP, GFR #### [address] [address] Hemoglobin (Bld) [Mass/Vol] 10.9 G/dL Low 12.0-16.0 [facility] ([place] Comment on above: Performed By: #### Jeramie LU1P, BMP, GFR #### [address] [address] MCH (RBC) [Entitic mass] 30.8 pg Normal 27.0-31.2 [facility] ([place] Comment on above: Performed By: #### G LU1P, BMP, GFR #### [address] [address] MCHC (RBC) [Mass/Vol] 34.0 G/dL Normal 33.0-37.0 [facility] [place] Comment [place]: Performed By: #### G LU1P, BMP, GFR #### [address] [address] MCV (RBC) [Entitic vol] 90.7 fL Normal 80.0-94.0 A [facility] ([place] Comment on above: Performed By: #### G LU1P, BMP, GFR #### [address] [address] Platelet mean volume (Bld) [Entitic vol] 11.6 fL High 7.4-10.4 [facility] ([place] Comment on above: Performed By: #### Jeramie KIM, BMP, GFR #### [place] [address] Platelets (Bld) [#/Vol] 111 10 3/mcL Low 130-400 [facility] ([place] Comment on above: Performed By: #### Jeramie DE LOS SANTOS1P, BMP, GFR #### [place] [address] RBC (Bld) [#/Vol] 3.55 10 6/mcL Low 4.20-5.40 [facility] ([place] Comment on above: Performed By: #### Jeramie KIM, BMP, GFR #### [place] [address] WBC (Bld) [#/Vol] 9.10 10 3/mcL Normal 4.60-10.80 [facility] ([place] Comment on above: Performed By: #### Jeramie KIM, BMP, GFR #### [place] [address] Gel ABOon 12-28-2019 ABO/Rh Interp Positive [facility] ([place] Comment on above: Performed By: #### Jeramie KIM, BMP, GFR #### [place] [address] Gel ABSon 12-28-2019 Antibody Screen Gel Negative Normal [facility] [place] Comment on above: Performed By: #### Jeramie KIM, BMP, GFR #### [address] [address] .Auto Diffon 12-27-2019 Ammonia (P) [Mass/Vol] 0.70 10 3/mcL Normal 0.15-1.00 [facility] ([place] Comment on above: Performed By: #### Jeramie LU1P, BMP, GFR #### [place] [id number] Basophils (Bld) [#/Vol] 0.00 10 3/mcL Normal 0.00-0.19 [facility] ([place] Comment on above: Performed By: #### G LU1P, BMP, GFR #### [address] [address] Basophils/100 WBC (Bld) 0.3 % Normal 0.0-2.5 A [facility] ([place] Comment on above: Performed By: #### G LU1P, BMP, GFR #### [address] [address] Eosinophils (Bld) [#/Vol] 0.10 10 3/mcL Normal 0.00-0. 40 [facility] ([place] Comment on above: Performed By: #### G LU1P, BMP, GFR #### [address] [address] Eosinophils/100 WBC (Bld) 0.6 % Normal 0.0-7.0 [facility] ([place] Comment on above: Performed By: #### G LU1P, BMP, GFR #### [address] [address] Lymphocytes (Bld) [#/Vol] 1.50 10 3/mcL Normal 0.77-3. 85 [facility] ([place] Comment on above: Performed By: #### G LU1P, BMP, GFR #### [address] [address] Lymphocytes/100 WBC (Bld) 16.2 % Normal 10.0-50.0 [facility] [place] Comment on above: Performed By: #### G LU1P, BMP, GFR #### [address] [address] Monocytes/100 WBC (Bld) 7.9 % Normal 1.7-13.0 A [facility] ([place] Comment on above: Performed By: #### G LU1P, BMP, GFR #### [address] [address] Neutrophils/100 WBC (Bld) 75.0 % Normal 37.0-80.0 [facility] ([place] Comment on above: Performed By: #### G LU1P, BMP, GFR #### [address] [address] .NEUABSon 12-27-2019 Neutrophils (Bld) [#/Vol] 6.90 10 3/mcL High 2.85-6. 16 [facility] ([place] Comment on above: Performed By: #### G LU1P, BMP, GFR #### [place] [address] CBCon 12-27-2019 Erythrocyte distribution width (RBC) [Ratio] 13.3 % Normal 11.5-14.5 [facility] ([place] Comment on above: Performed By: #### G LU1P, BMP, GFR #### [place] [address] Hematocrit (Bld) [Volume fraction] 38.8 % Normal 37.0-47.0 [facility] [place] Comment on above: Performed By: #### G LU1P, BMP, GFR #### [place] [address] Hemoglobin (Bld) [Mass/Vol] 13.3 G/dL Normal 12.0-16.0 [facility] [place] Comment on above: Performed By: #### G LU1P, BMP, GFR #### [place] [address] MCH (RBC) [Entitic mass] 30.5 pg Normal 27.0-31.2 [facility] ([place] Comment on above: Performed By: #### G LU1P, BMP, GFR #### [place] [address] MCHC (RBC) [Mass/Vol] 34.3 G/dL Normal 33.0-37.0 [facility] [place] Comment [place]: Performed By: #### G LU1P, BMP, GFR #### [place] [address] MCV (RBC) [Entitic vol] 88.9 fL Normal 80.0-94.0 [facility] ([place]) Comment on above: Performed By: #### G LU1P, BMP, GFR #### [place] [address] Platelet mean volume (Bld) [Entitic vol] 11.4 fL High 7.4-10.4 [facility] ([place] Comment on above: Performed By: #### Jeramie LU1P, BMP, GFR #### [address] [address] Platelets (Bld) [#/Vol] 129 10 3/mcL Low 130-400 [facility] [place] Comment on above: Performed By: #### Jeramie LU1P, BMP, GFR #### [place] [id number] RBC (Bld) [#/Vol] 4.36 10 6/mcL Normal 4.20-5.40 [facility] [place] Comment on above: Performed By: #### Jeramie DE LOS SANTOS1P, BMP, GFR #### [place] [address] WBC (Bld) [#/Vol] 9.20 10 3/mcL Normal 4.60-10.80 [facility] [place] Comment on above: Performed By: #### Jeramie LU1P, BMP, GFR #### [address] [address] .Auto Diffon 12-19-2019 Ammonia (P) [Mass/Vol] 0.60 10 3/mcL Normal 0.15-1.00 [facility] [place] Comment on above: Performed By: #### Jeramie LU1P, BMP, GFR #### [address] [address] Basophils (Bld) [#/Vol] 0.00 10 3/mcL Normal 0.00-0.19 [facility] ([place] Comment on above: Performed By: #### Jeramie LU1P, BMP, GFR #### [address] [address] Basophils/100 WBC (Bld) 0.5 % Normal 0.0-2.5 A [facility] ([place] Comment on above: Performed By: #### Jeramie LU1P, BMP, GFR #### [place] [address] Eosinophils (Bld) [#/Vol] 0.00 10 3/mcL Normal 0.00-0. 40 [facility] ([place]) Comment on above: Performed By: #### G LU1P, BMP, GFR #### [address] [address] Eosinophils/100 WBC (Bld) 0.6 % Normal 0.0-7.0 [facility] [place] Comment on above: Performed By: #### G LU1P, BMP, GFR #### [address] [address] Lymphocytes (Bld) [#/Vol] 1.20 10 3/mcL Normal 0.77-3. 85 [facility] ([place]) Comment on above: Performed By: #### G LU1P, BMP, GFR #### [address] [address] Lymphocytes/100 WBC (Bld) 14.6 % Normal 10.0-50.0 [facility] ([place] Comment on above: Performed By: #### Jeramie LU1P, BMP, GFR #### [address] [address] Monocytes/100 WBC (Bld) 7.4 % Normal 1.7-13.0 A [facility] ([place]) Comment on above: Performed By: #### Jeramie LU1P, BMP, GFR #### [address] [address] Neutrophils/100 WBC (Bld) 76.9 % Normal 37.0-80.0 [facility] ([place] Comment on above: Performed By: #### G LU1P, BMP, GFR #### [address] [address] .GFRon 12-19-2019 GFR Non- 122 ml/min/1.73sqm Normal [facility] ([place]) Comment on above: Result Comment: GFR [...] By: #### G LU1P, BMP, GFR #### [address] [address] GFR 147 ml/min/1.73sqm Normal [facility] ([place] Comment on above: Result Comment: GFR Population [...] 15 mL/min/1.73 square meters Performed By: #### Jeramie KIM, BMP, GFR #### [place] [address] .NEUABSon 12-19-2019 Neutrophils (Bld) [#/Vol] 6.40 10 3/mcL High 2.85-6. 16 [facility] ([place] Comment on above: Performed By: #### Jeramie KIM, BMP, GFR #### [address] [address] CBCon 12-19-2019 Erythrocyte distribution width (RBC) [Ratio] 13.4 % Normal 11.5-14.5 [facility] ([place] Comment on above: Performed By: #### Jeramie DE LOS SANTOS1P, BMP, GFR #### [address] [address] Hematocrit (Bld) [Volume fraction] 37.1 % Normal 37.0-47.0 [facility] ([place] Comment on above: Performed By: #### Jeramie LU1P, BMP, GFR #### [address] [address] Hemoglobin (Bld) [Mass/Vol] 12.9 G/dL Normal 12.0-16.0 [facility] ([place] Comment on above: Performed By: #### G LU1P, BMP, GFR #### [place] [id number] MCH (RBC) [Entitic mass] 30.7 pg Normal 27.0-31.2 [facility] ([place] Comment on above: Performed By: #### G LU1P, BMP, GFR #### [address] [address] MCHC (RBC) [Mass/Vol] 34.6 G/dL Normal 33.0-37.0 [facility] [place] Comment [place] above: Performed By: #### G LU1P, BMP, GFR #### [place] [id number] MCV (RBC) [Entitic vol] 88.7 fL Normal 80.0-94.0 [facility] ([place] Comment on above: Performed By: #### G LU1P, BMP, GFR #### [place] [id number] Platelet mean volume (Bld) [Entitic vol] 11.4 fL High 7.4-10.4 [facility] ([place] Comment on above: Performed By: #### G LU1P, BMP, GFR #### [address] [address] Platelets (Bld) [#/Vol] 128 10 3/mcL Low 130-400 [facility] ([place] Comment on above: Performed By: #### G LU1P, BMP, GFR #### [place] [id number] RBC (Bld) [#/Vol] 4.18 10 6/mcL Low 4.20-5.40 [facility] ([place] Comment on above: Performed By: #### G LU1P, BMP, GFR #### [place] [id number] WBC (Bld) [#/Vol] 8.30 10 3/mcL Normal 4.60-10.80 [facility] ([place] Comment on above: Performed By: #### Jeramie KIM, BMP, GFR #### [place] [address] CMPon 12-19-2019 Albumin [Mass/Vol] 2.6 G/dL Low 3.5-5.0 [facility] ([place]) Comment on above: Performed By: #### Jeramie KIM, BMP, GFR #### [place] [address] Albumin/Globulin [Mass ratio] 0.7 {ratio} Low 1.1-2.5 [facility] ([place] Comment on above: Performed By: #### Jeramie KIM, BMP, GFR #### [place] [address] ALP [Catalytic activity/Vol] 207 U/L High 40-135 [facility] ([place] Comment on above: Performed By: #### Jeramie KIM, BMP, GFR #### [place] [address] ALT [Catalytic activity/Vol] 29 U/L Normal 14-59 [facility] ([place] Comment on above: Performed By: #### Jeramie KIM, BMP, GFR #### [place] [address] AST [Catalytic activity/Vol] 28 U/L Normal 10-40 [facility] ([place] Comment on above: Performed By: #### Jeramie KIM, BMP, GFR #### [place] [address] Bili Total 0.3 mg/dL Normal 0.2-1.0 [facility] ([place] Comment on above: Result Comment: Use of this assay is not recommended for patients undergoing treatment with eltrombopag due to the potential for falsely elevated results. Performed By: #### Jeramie DE LOS SANTOS1P, BMP, GFR #### [place] [address] Calcium [Mass/Vol] 8.5 mg/dL Normal 8.4-10.2 [facility] ([place] Comment on above: Performed By: #### G LU1P, BMP, GFR #### [address] [address] Chloride [Moles/Vol] 105 mmol/L Normal 98-107 [facility] ([place] Comment on above: Performed By: #### G LU1P, BMP, GFR #### [address] [address] CO2 [Moles/Vol] 23 mmol/L Normal 22-29 [facility] ([place] Comment on above: Performed By: #### G LU1P, BMP, GFR #### [address] [address] Creatinine [Mass/Vol] 0.61 mg/dL Normal 0.55-1.02 [facility] [place] Comment [place]: Performed By: #### G LU1P, BMP, GFR #### [address] [address] Electrolyte Balance 10.0 mEq/L Normal [facility] ([place] Comment on above: Performed By: #### G LU1P, BMP, GFR #### [address] [address] Globulin (S) [Mass/Vol] 3.6 G/dL Normal A [facility] ([place] Comment on above: Performed By: #### G LU1P, BMP, GFR #### [address] [address] Glucose [Mass/Vol] 78 mg/dL Normal 70-105 [facility] ([place] Comment on above: Performed By: #### G LU1P, BMP, GFR #### [address] [address] Potassium [Moles/Vol] 3.9 mmol/L Normal 3.5-5.1 [facility] [place] Comment [place]: Performed By: #### G LU1P, BMP, GFR #### [address] [address] Protein [Mass/Vol] 6.2 G/dL Low 6.4-8.2 [facility] ([place] Comment on above: Performed By: #### G LU1P, BMP, GFR #### [address] [address] Sodium [Moles/Vol] 138 mmol/L Normal 136-145 [facility] ([place] Comment on above: Performed By: #### G LU1P, BMP, GFR #### [address] [address] Urea nitrogen [Mass/Vol] 1 mg/dL Low 7-18 [facility] ([place] Comment on above: Performed By: #### G LU1P, BMP, GFR #### [place] [address] Urea nitrogen/Creatinine [Mass ratio] 2 ratio Low 7-27 [facility] ([place] Comment on above: Performed By: #### G LU1P, BMP, GFR #### [place] [address] RPCURon 12-19-2019 Protein [Mass/Vol] 28 mg/dL High 0-11 [facility] ([place] Comment on above: Performed By: #### G LU1P, BMP, GFR #### [place] [address] U Creatinine 49.9 mg/dL Normal 28.0-117.0 [facility] ([place] Comment on above: Performed By: #### G LU1P, BMP, GFR #### [place] [address] U Ratio Prot/Creat 0.6 ratio Normal [facility] ([place] Comment on above: Result Comment: resu lt calculated by rule GL_UR_PROT_NOTCALC_OLD (U Protein/U Creatinine) Performed By: #### G LU1P, BMP, GFR #### [place] [address] URICon 12-19-2019 Uric Acid Lvl 3.4 mg/dL Normal 2.6-6.2 [facility] ([place] Comment on above: Performed By: #### G LU1P, BMP, GFR #### [place] [id number] MISCMon 12-03-2019 MISCM . MICRO - Microbiology [...] Locations *1: This test was performed at: [address], [facility]- , [facility] Normal [facility] ([place] Comment on above: Performed By: #### G LU1P, BMP, GFR #### [place] [address] HGMPon 11-28-2019 Erythrocyte distribution width (RBC) [Ratio] 12.9 % Normal 11.5-14.5 [facility] ([place] Comment on above: Performed By: #### G LU1P, BMP, GFR #### [place] [address] Hematocrit (Bld) [Volume fraction] 37.9 % Normal 37.0-47.0 [facility] ([place] Comment on above: Performed By: #### G LU1P, BMP, GFR #### [place] [address] Hemoglobin (Bld) [Mass/Vol] 12.9 G/dL Normal 12.0-16.0 [facility] ([place] Comment on above: Performed By: #### G LU1P, BMP, GFR #### [place] [address] MCH (RBC) [Entitic mass] 30.4 pg Normal 27.0-31.2 [facility] ([place] Comment on above: Performed By: #### G LU1P, BMP, GFR #### [facility] [address] [place], [place] [address] MCHC (RBC) [Mass/Vol] 34.1 G/dL Normal 33.0-37.0 [facility] [place] Comment on above: Performed By: #### Jeramie LU1P, BMP, GFR #### [address] [address] MCV (RBC) [Entitic vol] 89.1 fL Normal 80.0-94.0 A [facility] ([place] Comment on above: Performed By: #### Jeramie LU1P, BMP, GFR #### [address] [address] Platelet mean volume (Bld) [Entitic vol] 11.7 fL High 7.4-10.4 [facility] ([place] Comment on above: Performed By: #### Jeramie LU1P, BMP, GFR #### [address] [address] Platelets (Bld) [#/Vol] 147 10 3/mcL Normal 130-400 [facility] ([place] Comment on above: Performed By: #### Jeramie LU1P, BMP, GFR #### [place] [id number] RBC (Bld) [#/Vol] 4.25 10 6/mcL Normal 4.20-5.40 [facility] ([place] Comment on above: Performed By: #### Jeramie LU1P, BMP, GFR #### [address] [address] WBC (Bld) [#/Vol] 10.30 10 3/mcL Normal 4.60-10.80 [facility] [place] Comment [place] above: Performed By: #### Jeramie LU1P, BMP, GFR #### [address] [address] HHon 10-31-2019 Hematocrit (Bld) [Volume fraction] 37.0 % Normal 37.0-47.0 [facility] ([place] Comment on above: Performed By: #### G LU1P, BMP, GFR #### [address] [address] Hemoglobin (Bld) [Mass/Vol] 12.8 G/dL Normal 12.0-16.0 [facility] ([place] Comment on above: Performed By: #### G LU1P, BMP, GFR #### [address] [address] PLTon 10-31-2019 Platelets (Bld) [#/Vol] 134 10 3/mcL Normal 130-400 [facility] ([place] Comment on above: Performed By: #### G LU1P, BMP, GFR #### [address] [address] .GFRon 09-26-2019 GFR 147 ml/min/1.73sqm Normal [facility] ([place] Comment on above: Result Comment: GFR Population [...] By: #### G LU1P, BMP, GFR #### [address] [address] GFR Non- 122 ml/min/1.73sqm Normal [facility] ([place] Comment on above: Result Comment: GFR Population [...] By: #### G LU1P, BMP, GFR #### [address] [address] .Urinalysis Microscopic (AO) on 09-26-2019 RBC (U) [#/Vol] None Seen Normal None Seen [facility] ([place] Comment on above: Performed By: #### G LU1P, BMP, GFR #### [address] [address] UA Squam Epithelial 0-5 Abnormal None Seen [facility] [place] Comment on above: Performed By: #### G LU1P, BMP, GFR #### [place] [address] UA WBC 0-5 Abnormal None Seen [facility] ([place] Comment on above: Performed By: #### G LU1P, BMP, GFR #### [place] [address] CMPon 09-26-2019 Albumin [Mass/Vol] 3.2 G/dL Low 3.5-5.0 [facility] ([place] Comment on above: Performed By: #### H GMP, URIC, CMP, GFR #### [address] [address] Albumin/Globulin [Mass ratio] 0.9 {ratio} Low 1.1-2.5 [facility] ([place] Comment on above: Performed By: #### H GMP, URIC, CMP, GFR #### [address] [address] ALP [Catalytic activity/Vol] 90 U/L Normal 40-135 [facility] ([place] Comment on above: Performed By: #### H GMP, URIC, CMP, GFR #### [address] [address] ALT [Catalytic activity/Vol] 17 U/L Normal 10-35 [facility] ([place] Comment on above: Performed By: #### H GMP, URIC, CMP, GFR #### [address] [address] AST [Catalytic activity/Vol] 15 U/L Normal 10-40 [facility] ([place] Comment on above: Performed By: #### H GMP, URIC, CMP, GFR #### [address] [address] Bili Total 0.2 mg/dL Normal 0.2-1.0 [facility] ([place] Comment on above: Result Comment: Use of this assay is not recommended for patients undergoing treatment with eltrombopag due to the potential for falsely elevated results. Performed By: #### H GMP, URIC, CMP, GFR #### [address] [address] Calcium [Mass/Vol] 9.3 mg/dL Normal 8.4-10.2 [facility] ([place] Comment on above: Performed By: #### H GMP, URIC, CMP, GFR #### [address] [address] Chloride [Moles/Vol] 103 mmol/L Normal 98-107 [facility] ([place] Comment on above: Performed By: #### H GMP, URIC, CMP, GFR #### [address] [address] CO2 [Moles/Vol] 24 mmol/L Normal 22-29 [facility] ([place] Comment on above: Performed By: #### H GMP, URIC, CMP, GFR #### [address] [address] Creatinine [Mass/Vol] 0.61 mg/dL Normal 0.55-1.02 [facility] [place] Comment [place] above: Performed By: #### H GMP, URIC, CMP, GFR #### [address] [address] Electrolyte Balance 12.0 mEq/L Normal [facility] [place] Comment on above: Performed By: #### H GMP, URIC, CMP, GFR #### [address] [address] Globulin (S) [Mass/Vol] 3.6 G/dL Normal A [facility] ([place] Comment on above: Performed By: #### H GMP, URIC, CMP, GFR #### [address] [address] Glucose [Mass/Vol] 76 mg/dL Normal 70-105 [facility] ([place] Comment on above: Performed By: #### H GMP, URIC, CMP, GFR #### [address] [address] Potassium [Moles/Vol] 3.7 mmol/L Normal 3.5-5.1 [facility] [place] Comment [place] above: Performed By: #### H GMP, URIC, CMP, GFR #### [address] [address] Protein [Mass/Vol] 6.8 G/dL Normal 6.4-8.2 [facility] [place] Comment on above: Performed By: #### H GMP, URIC, CMP, GFR #### [address] [address] Sodium [Moles/Vol] 139 mmol/L Normal 136-145 [facility] ([place] Comment on above: Performed By: #### H GMP, URIC, CMP, GFR #### [address] [address] Urea nitrogen [Mass/Vol] 3 mg/dL Low 7-18 [facility] ([place] Comment on above: Performed By: #### H GMP, URIC, CMP, GFR #### [address] [address] Urea nitrogen/Creatinine [Mass ratio] 5 ratio Low 7-27 [facility] ([place] Comment on above: Performed By: #### H GMP, URIC, CMP, GFR #### [address] [address] HGMPon 09-26-2019 Erythrocyte distribution width (RBC) [Ratio] 12.7 % Normal 11.5-14.5 [facility] ([place] Comment on above: Performed By: #### H GMP, URIC, CMP, GFR #### [address] [address] Hematocrit (Bld) [Volume fraction] 38.8 % Normal 37.0-47.0 [facility] ([place] Comment on above: Performed By: #### H GMP, URIC, CMP, GFR #### [address] [address] Hemoglobin (Bld) [Mass/Vol] 13.1 G/dL Normal 12.0-16.0 [facility] ([place] Comment on above: Performed By: #### H GMP, URIC, CMP, GFR #### [address] [address] MCH (RBC) [Entitic mass] 30.6 pg Normal 27.0-31.2 [facility] ([place] Comment on above: Performed By: #### H GMP, URIC, CMP, GFR #### [address] [address] MCHC (RBC) [Mass/Vol] 33.9 G/dL Normal 33.0-37.0 [facility] [place] Comment [place]: Performed By: #### H GMP, URIC, CMP, GFR #### [address] [address] MCV (RBC) [Entitic vol] 90.3 fL Normal 80.0-94.0 [facility] ([place] Comment on above: Performed By: #### H GMP, URIC, CMP, GFR #### [address] [address] Platelet mean volume (Bld) [Entitic vol] 11.7 fL High 7.4-10.4 [facility] ([place] Comment on above: Performed By: #### H GMP, URIC, CMP, GFR #### [address] [address] Platelets (Bld) [#/Vol] 139 10 3/mcL Normal 130-400 [facility] ([place] Comment on above: Performed By: #### H GMP, URIC, CMP, GFR #### [address] [address] RBC (Bld) [#/Vol] 4.29 10 6/mcL Normal 4.20-5.40 [facility] ([place]) Comment on above: Performed By: #### H GMP, URIC, CMP, GFR #### Jeni [address] [address] WBC (Bld) [#/Vol] 8.40 10 3/mcL Normal 4.60-10.80 [facility] ([place] Comment on above: Performed By: #### H GMP, URIC, CMP, GFR #### Jeni [address] [address] UAon 09-26-2019 Color (U) Yellow Normal [facility] ([place]) Comment on above: Performed By: #### G LU1P, BMP, GFR #### [place] [address] Glucose (U) [Mass/Vol] Negative Normal Negative [facility] ([place]) Comment on above: Performed By: #### Jeramie LU1P, BMP, GFR #### [place] [address] Ketones Ql (U) Negative Normal Negative [facility] ([place] Comment on above: Performed By: #### Jeramie LU1P, BMP, GFR #### [place] [address] UA Appear Clear Normal Clear [facility] ([place] Comment on above: Performed By: #### G LU1P, BMP, GFR #### [place] [id number] UA Blood Negative Normal Negative [facility] ([place] Comment on above: Performed By: #### G LU1P, BMP, GFR #### [place] [id number] UA Leuk Est Small Abnormal Negative [facility] ([place] Comment on above: Performed By: #### G LU1P, BMP, GFR #### [address] [address] UA Nitrite Negative Normal Negative [facility] ([place] Comment on above: Performed By: #### G LU1P, BMP, GFR #### [address] [address] UA pH 7.0 Normal 5.0 - 8.0 [facility] ([place] Comment on above: Performed By: #### G LU1P, BMP, GFR #### [address] [address] UA Protein Negative Normal Negative [facility] ([place] Comment on above: Performed By: #### G LU1P, BMP, GFR #### [address] [address] UA Spec Grav 1.020 Normal 1.015-1.025 [facility] ([place]) Comment on above: Performed By: #### G LU1P, BMP, GFR #### [address] [address] UA Specimen Type Not Given Normal [facility] ([place]) Comment on above: Performed By: #### G LU1P, BMP, GFR #### [address] [address] UA Urobilinogen 0.2 E.U./dL Normal 0.2-1.0 [facility] ([place] Comment on above: Performed By: #### G LU1P, BMP, GFR #### [address] [address] Urobilinogen Qn (U) Negative Normal Negative [facility] ([place] Comment on above: Performed By: #### G LU1P, BMP, GFR #### [address] [address] URICon 09-26-2019 Uric Acid Lvl 2.9 mg/dL Normal 2.6-6.2 [facility] ([place] Comment on above: Performed By: #### H GMP, URIC, CMP, GFR #### [address] [address] BILEon 09-20-2019 Cholesterol [Mass/Vol] 1.6 mg/dL Normal [facility] ([place]) Comment on above: Order Comment: Test delay notice sent from [facility] 09/19/19 anticiapted date of completion is 09/24/19 Result Comment: Refe rence range: 0.0 to 2.5 Unit: umol/L Performed By: #### H GMP, BILE #### [address] [address] Cholesterol [Mass/Vol] 0.3 mg/dL Normal [facility] [place] Comment on above: Order Comment: Test delay notice sent from [facility] 09/19/19 anticiapted date of completion is 09/24/19 Result Comment: Refe rence range: 0.0 to 1.0 Unit: umol/L Performed By: #### H GMP, BILE #### [address] [address] Cholesterol [Mass/Vol] 0.9 mg/dL Normal [facility] [place] Comment on above: Order Comment: Test delay notice sent from [facility] 09/19/19 anticiapted date of completion is 09/24/19 Result Comment: Refe rence range: 0.0 to 3.4 Unit: umol/L Performed By: #### H GMP, BILE #### [address] [address] Cholesterol [Mass/Vol] 1.1 mg/dL Normal [facility] [place] Comment on above: Order Comment: Test delay notice sent from [facility] 09/19/19 anticiapted date of completion is 09/24/19 Result Comment: Refe rence range: 0.0 to 1.9 Unit: umol/L Performed By: #### H GMP, BILE #### [address] [address] Total Bile Acids 3.9 Normal [facility] ([place] Comment on above: Order Comment: Test delay notice sent from [facility] 09/19/19 anticiapted date of completion is 09/24/19 Result Comment: Refe rence range: 0.0 to 7.0 Unit: umol/L (NOTE) INTERPRETIVE INFORMATION: Bile Acids, Fractionated and Total Test developed and characteristics determined by [employer]. See Compliance Statement B: [email or web address] Performed by [employer], [address] [place] [id number] [email or web address], Paul Cruz MD, Lab. Director Performed By: #### H GMP, BILE #### [address] [address] [facility] 09-12-2019 Erythrocyte distribution width (RBC) [Ratio] 12.6 % Normal 11.5-14.5 [facility] ([place] Comment on above: Performed By: #### H GMP, BILE #### [address] [address] Hematocrit (Bld) [Volume fraction] 38.7 % Normal 37.0-47.0 [facility] ([place]) Comment on above: Performed By: #### H GMP, BILE #### [address] [address] Hemoglobin (Bld) [Mass/Vol] 13.1 G/dL Normal 12.0-16.0 [facility] ([place]) Comment on above: Performed By: #### H GMP, BILE #### [address] [address] MCH (RBC) [Entitic mass] 30.7 pg Normal 27.0-31.2 [facility] ([place]) Comment on above: Performed By: #### H GMP, BILE #### [address] [address] MCHC (RBC) [Mass/Vol] 33.8 G/dL Normal 33.0-37.0 [facility] ([place] Comment on above: Performed By: #### H GMP, BILE #### [address] [address] MCV (RBC) [Entitic vol] 90.8 fL Normal 80.0-94.0 [facility] ([place]) Comment on above: Performed By: #### H GMP, BILE #### [address] [address] Platelet mean volume (Bld) [Entitic vol] 11.8 fL High 7.4-10.4 [facility] ([place]) Comment on above: Performed By: #### H GMP, BILE #### [address] [address] Platelets (Bld) [#/Vol] 137 10 3/mcL Normal 130-400 [facility] ([place] Comment on above: Performed By: #### H GMP, BILE #### [address] [address] RBC (Bld) [#/Vol] 4.26 10 6/mcL Normal 4.20-5.40 [facility] ([place] Comment on above: Performed By: #### H GMP, BILE #### [address] [address] WBC (Bld) [#/Vol] 8.30 10 3/mcL Normal 4.60-10.80 [facility] ([place] Comment on above: Performed By: #### H GMP, BILE #### [address] [address] .GFRon 07-11-2019 GFR Non- 129 ml/min/1.73sqm Normal [facility] ([place] Comment on above: Result Comment: GFR Population [...] Performed By: #### C MP, GFR #### [address] [address] GFR 156 ml/min/1.73sqm Normal [facility] ([place] Comment on above: Result Comment: GFR Population [...] Performed By: #### C MP, GFR #### [address] [address] CMPon 07-11-2019 Albumin [Mass/Vol] 3.3 G/dL Low 3.5-5.0 [facility] ([place] Comment on above: Performed By: #### C MP, GFR #### [address] [address] Albumin/Globulin [Mass ratio] 0.9 {ratio} Low 1.1-2.5 [facility] ([place] Comment on above: Performed By: #### C MP, GFR #### [address] [address] ALP [Catalytic activity/Vol] 67 U/L Normal 40-135 [facility] ([place] Comment on above: Performed By: #### C MP, GFR #### [address] [address] ALT [Catalytic activity/Vol] 21 U/L Normal 10-35 [facility] ([place] Comment on above: Performed By: #### C MP, GFR #### [address] [address] AST [Catalytic activity/Vol] 16 U/L Normal 10-40 [facility] ([place] Comment on above: Performed By: #### C MP, GFR #### [address] [address] Bili Total 0.3 mg/dL Normal 0.2-1.0 [facility] ([place] Comment on above: Result Comment: Use of this assay is not recommended for patients undergoing treatment with eltrombopag due to the potential for falsely elevated results. Performed By: #### C MP, GFR #### [address] [address] Calcium [Mass/Vol] 9.4 mg/dL Normal 8.4-10.2 [facility] ([place] Comment on above: Performed By: #### C MP, GFR #### [address] [address] Chloride [Moles/Vol] 102 mmol/L Normal 98-107 [facility] ([place] Comment on above: Performed By: #### C MP, GFR #### [address] [address] CO2 [Moles/Vol] 26 mmol/L Normal 22-29 [facility] ([place] Comment on above: Performed By: #### C MP, GFR #### [address] [address] Creatinine [Mass/Vol] 0.58 mg/dL Normal 0.55-1.02 [facility] [place] Comment [place] above: Performed By: #### C MP, GFR #### [address] [address] Electrolyte Balance 10.0 mEq/L Normal [facility] ([place] Comment on above: Performed By: #### C MP, GFR #### [address] [address] Globulin (S) [Mass/Vol] 3.7 G/dL Normal A [facility] ([place]) Comment on above: Performed By: #### C MP, GFR #### [address] [address] Glucose [Mass/Vol] 81 mg/dL Normal 70-105 [facility] ([place] Comment on above: Performed By: #### C MP, GFR #### [address] [address] Potassium [Moles/Vol] 3.6 mmol/L Normal 3.5-5.1 [facility] [place] Comment [place]: Performed By: #### C MP, GFR #### [address] [place], [place] [address] Protein [Mass/Vol] 7.0 G/dL Normal 6.4-8.2 [facility] ([place] Comment on above: Performed By: #### C MP, GFR #### [address] [place], [place] [address] Sodium [Moles/Vol] 138 mmol/L Normal 136-145 [facility] ([place] Comment on above: Performed By: #### C MP, GFR #### [address] [address] Urea nitrogen [Mass/Vol] 3 mg/dL Low 7-18 [facility] ([place] Comment on above: Performed By: #### C MP, GFR #### [address] [address] Urea nitrogen/Creatinine [Mass ratio] 5 ratio Low 7-27 [facility] ([place] Comment on above: Performed By: #### C MP, GFR #### [address] [address] .GFRon 06-20-2019 GFR 114 ml/min/1.73sqm Normal [facility] ([place] Comment on above: Result Comment: GFR Population [...] By: #### G LU1P, BMP, GFR #### [address] [address] GFR Non- 94 ml/min/1.73sqm Normal [facility] ([place] Comment on above: Result Comment: GFR Population [...] 15 mL/min/1.73 square meters Performed By: #### Jeramie DE LOS SANTOS1P, BMP, GFR #### [address] [address] [facility] Calcium [Mass/Vol] 8.7 mg/dL Normal 8.4-10.2 [facility] ([place] Comment on above: Performed By: #### Jeramie KIM, BMP, GFR #### [address] [address] Chloride [Moles/Vol] 102 mmol/L Normal 98-107 [facility] [place] Comment on above: Performed By: #### Jeramie LU1P, BMP, GFR #### [address] [address] CO2 [Moles/Vol] 25 mmol/L Normal 22-29 [facility] ([place] Comment on above: Performed By: #### Jeramie LU1P, BMP, GFR #### [address] [address] Creatinine [Mass/Vol] 0.76 mg/dL Normal 0.55-1.02 [facility] [place] Comment [place] above: Performed By: #### Jeramie LU1P, BMP, GFR #### [address] [address] Electrolyte Balance 9.0 mEq/L Normal [facility] [place] Comment on above: Performed By: #### Jeramie LU1P, BMP, GFR #### [facility] [address] [place] [address] Glucose [Mass/Vol] 185 mg/dL High 70-140 [facility] ([place] Comment on above: Performed By: #### G LU1P, BMP, GFR #### [facility] [address] [place] [address] Potassium [Moles/Vol] 3.4 mmol/L Low 3.5-5.1 [facility] [place] Comment [place]: Performed By: #### G LU1P, BMP, GFR #### [facility] [address] [place] [address] Sodium [Moles/Vol] 136 mmol/L Normal 136-145 [facility] ([place] Comment on above: Performed By: #### Jeramie LU1P, BMP, GFR #### [address] [address] Urea nitrogen [Mass/Vol] 3 mg/dL Low 7-18 [facility] ([place] Comment on above: Performed By: #### Jeramie LU1P, BMP, GFR #### [address] [address] Urea nitrogen/Creatinine [Mass ratio] 4 ratio Low 7-27 [facility] ([place] Comment on above: Performed By: #### Jeramie LU1P, BMP, GFR #### [address] [address] Vital Signs Date Time Vital Sign Value Performing Clinician Faci lity 05-09-2023 00:06-0500 Body temperature 98.2 [degF] [facility] 05-09-2023 00:06-0500 Diastolic blood pressure 76 mm[Hg] [facility] 05-09-2023 00:06-0500 Heart rate 99 /min [facility] 05-09-2023 00:06-0500 Respiratory rate 26 /min [facility] 05-09-2023 00:06-0500 SaO2% (BldA) [Mass fraction] 95 % [facility] 05-09-2023 00:06-0500 Systolic blood pressure 112 mm[Hg] [facility] 05-08-2023 21:54-0500 Body mass index (BMI) [Ratio] 34.3 kg/m2 [facility] 05-08-2023 21:54-0500 Body weight 90.71 kg [facility] 05-08-2023 21:39-0500 Body height 162.56 cm [facility] Encounters Encounter Date Encounter Type Care Provider Facility Start: 11-28-2024 End: 11-28-2024 ambulatory [facility] Start: 10-22-2024 End: 10-22-2024 Emergency department patient visit Ashvin Trujillo Facility:[facility] Start: 08-22-2024 End: 08-22-2024 ambulatory [facility] Start: 07-26-2024 End: 07-26-2024 ambulatory [facility] Start: 06-13-2024 End: 06-13-2024 ambulatory [facility] Start: 02-01-2024 End: 02-01-[address] [facility] Start: 12-20-2023 End: 12-20-[address] [facility] Start: 05-08-2023 End: 05-09-2023 Emergency department patient visit [facility] Work Phone: Start: 11-18-2022 End: 11-18-2022 ambulatory [facility] Work Phone: Start: 11-18-2022 End: 11-18-2022 Patient encounter procedure [facility] Work Phone: Procedures Date Procedure Procedure Detail Performing Clinician Start: 05-08-2023 Plain chest X-ray Start: 05-08-2023 SARS-CoV-2, Influenz a & RSV (PCR) Start: 11-18-2022 Bacterial nucleic acid assay Start: 11-18-2022 Chlamydia trachomatis (PCR) Plan of Treatment Date Care Activity Detail Author Start: 05-08-2023 [facility] Start: 05-08-2023 [facility] Start: 05-08-2023 End: 05-08-2023 Blood culture [facility] Start: 05-08-2023 Bacteria identified in Blood by Culture Blood Culture [facility] Bacteria identified in Urine by Culture [facility] Patient Education ED Fever Contr ol (Adult) ED Influenza (Adult) [facility] Work Phone: Patient referral [facility] Work Phone: Payers Date Payer Category Payer Self-pay [id number] 2023 Unknown [id number] Medicaid MEDICAID [id number] Unknown [id number] Unknown [id number] 2.16.8 [id number] Unknown [id number] 2.16.8 [id number] Unknown [id number] 2.16.8 [id number] Unknown [id number] 2.16.8 [id number] Unknown [id number] 2.16.8 [id number] Unknown [id number] 2.16.8 [id number] Unknown [id number] 2.16.8 [id number] Unknown [id number] 2.16.8 [id number] Unknown [id number] 2.16.8 [id number] Social History Date Type Detail Facility Tobacco smoking stat [facility] Unknown if ever smoked [facility] Work Phone: Start: 1995 Sex Assigned At Female [facility] Start: 05-08-[address] [facility] Mental Status Date Assessment Result Facility 05-08-2023 Cognitive function Level Of Cons ciousness Awake;Alert;Appropriate;Follow s Commands [facility] Work Phone: Progress note 05-18-2021 Note Date & Type Note Facility 05-18-2021 Note HNO ID: [id number] Author: Nisha Valdez APRN.MESSENGER OFFICE Service: ? Author Type: Nurse Practitioner Type: [...] (KETO-DIASTIX) strp 1 Strip four times daily. [id number]-Dv-[id number] tab Take 1 tablet by mouth once daily. With folic acid and DHA as covered by Insurance acetaminophen (TYLENOL) 325 mg cap Take by mouth. FAMILY HISTORY Problem Relation Age of Onset - Heart Father PA - Heart Other paternal side - Cancer [...] Discussed expected course of illness Nisha Valdez APRN.MESSENGER OFFICE [facility] Evaluation note Note Date & Type Note Facility Evaluation note No assessment information availa [facility] Work Phone: Summary Purpose Family History No Family History Records FoundNo Family History Records FoundNo Family History Records Found Advance Directives No Advanced Directives Records Found Advance Directive Response Recorded Date/ Time Living Will No May 08 9:55pm Power of Laundry Tech No May 08, 2023 9:55pm Chief Complaint and Reason for Visit Chief Complaint fever Additional Source Comments INFORMATION SOURCE (unrecogn ized section and content) DATE CREATED AUTHOR 01/08/2020 [facility] ([place]) DATE CREATED AUTHOR AUTHOR'S ORGANIZ ATBANDAR 05/19/2021 [facility] DATE CREATED AUTHOR AUTHOR'S ORGANIZ ATION 12/01/2024 [facility] Care Teams (unrecognized sec tion and content) Team Status: Active Member Role Status Dates Dr. Tan Swan MD Family Provider Active Dr. Danitza Allred MD Primary Care Provider Active Team Status: Inactive Member Role Status Dates Dr. Danitza Allrde MD Primary Care Provider, Attendin g Provider Active Team Status: Inactive Member Role Status Dates Dr. Danitza Allred MD Primary Care Provider Active Dr. Silvio Trujillo , DO Emergency Provider Active Goals (unrecognized section and [...] BE BASED ON THE PRIMARY CLINICAL RECORDS. [facility] [employer] [facility]. provides no warranty or guarantee of the accuracy or completeness of information in this document.
[2025-02-22 17:54] LABS: Hematocrit 41.3 % (37-47); Hemoglobin 14.2 g/dL (12.0-15.0); Immature Granulocytes Count 0.020 X10^3/uL (0.0-0.0); Mean Corp Hgb Conc 34.4 g/dL (32-36); Mean Corpuscular Volume 86.8 fL (81-99); Mean Platelet Vol. 13.9 fl (6.2-12.0); NRBC Flagged by Analyzer 0 % (0-5); Platelet Count 175 K/mm3 (150-450); RBC Distribution Width CV 11.9 % (11.6-14.6); RBC Distribution Width SD 37.8 fl (35.1-43.9); Red Blood Count 4.76 M/mm3 (4.2-5.4); White Blood Count 7.6 K/mm3 (4.4-11.0)
[2025-02-22 18:21] LABS: AST(SGOT) 31 U/L (<=31); Alanine Aminotransfer ALT/SGPT 36 U/L (<=34); Albumin, Serum 4.0 g/dL (3.5-5.0); Alkaline Phosphatase 78 U/L (35-104); Anion Gap 10 (5-15); BUN 10 mg/dL (4-19); BUN/Creat Ratio 12.3 RATIO (10-20); Calcium,Total 9.3 mg/dL (7.6-11.0); Carbon Dioxide 23.2 mmol/L (21.0-32.0); Chloride 104 mmol/L (98-108); Ferritin 73 ng/mL (22-378); Globulin 2.9 g/dL (2.2-4.2); Glucose 151 mg/dL (70-99); Potassium 3.9 mmol/L (3.3-5.1); Vitamin D,25 Hydroxy 29.9 ng/mL (30-100)
== END | disposition home or self-care (01) ==
LOC: BFHLAB 16:19
PROVIDERS: PCP Family Medicine; Visit Provider Family Medicine
DX: K76.0 Fatty (change of) liver, not elsewhere classified (principal); D64.9 Anemia, unspecified; E55.9 Vitamin D deficiency, unspecified
CPT/HCPCS: 36415; 80053; 82306; 82728; 85025